=== PATIENT | female | born 1950 | race Caucasian/White ===

== ENCOUNTER 2016-09-03 12:24 | Emergency (ER) | payer MEDICARE, OTHER ==
--- NOTE | 2016-09-03 12:35 | ER Document Report ---
ED Medical Screen (RME) - General Stated Complaint: COUGH Notes: Patient complaining of cough, runny nose/congestion, ear pain for 3 days. denies sick contacts, did not receive a flu vaccine. denies fevers/chills, sore throat I have greeted and performed a rapid initial assessment of this patient. A comprehensive ED assessment and evaluation of the patient, analysis of test results and completion of the medical decision making process will be conducted by additional ED providers. TRAVEL OUTSIDE OF THE [place] IN LAST 30 DAYS: No - Related Data Allergies/Adverse Reactions: cephalexin monohydrate [From [employer]] Allergy (Verified 09/03/16 12:33) Past Medical History - Past Medical History Cardiac Medical History: Reports: Hx Atrial Fibrillation, Hx Hypertension Pulmonary Medical History: Reports: Hx Asthma Neurological Medical History: Reports: Hx Migraine Endocrine Medical History: Reports: Hx Diabetes Mellitus Type 2 Renal/ Medical History: Reports: Hx Kidney Stones Musculoskeltal Medical History: Reports Hx Arthritis, Reports Hx Musculoskeletal Deformity, Reports Hx Musculoskeletal Trauma Skin Medical History: Reports Hx Psoriasis Past Surgical History: Reports: Hx Tubal Ligation - Immunizations Immunizations up to date: No Hx Diphtheria, Pertussis, Tetanus Vaccination: No Physical Exam - Vital signs Vitals: Temp Pulse Resp BP Pulse Ox 97.9 F 92 16 142/89 H 99 09/03/16 12:28 09/03/16 12:28 09/03/16 12:28 09/03/16 12:28 09/03/16 12:28 Course - Vital Signs Vital signs: Temp Pulse Resp BP Pulse Ox 97.9 F 92 16 142/89 H 99 09/03/16 12:28 09/03/16 12:28 09/03/16 12:28 09/03/16 12:28 09/03/16 12:28
--- NOTE | 2016-09-03 13:16 | ER Document Report ---
ED Respiratory Problem - General Mode of Arrival: Ambulatory Information source: Patient TRAVEL OUTSIDE OF THE [place] IN LAST 30 DAYS: No - HPI Patient complains to provider of: Cough Associated symptoms: Other - See above <SEBASTIAN HUTCHINSON - Last Filed: 09/03/16 13:19> <MANDY DUARTE - Last Filed: 09/03/16 15:12> - General Chief Complaint: Cold Symptoms Stated Complaint: COUGH Notes: Patient is a 66 year old female who presents to the emergency department complaining of a cough onset 3 days ago. Patient also complains of runny eyes, rhinnorhea, sneezing, dark green sputum, and feeling as though her left ear is stopped up. Patient is still on Coumadin and is allergic to Keflex and another drug that she cannot recall. PCP: Dr. Fall (SEBASTIAN HUTCHINSON) - Related Data Allergies/Adverse Reactions: cephalexin monohydrate [From Keflex] Allergy (Verified 09/03/16 14:03) Past Medical History - General Information source: Patient - Social History Smoking Status: Unknown if Ever Smoked Chew tobacco use (# tins/day): No Frequency of alcohol use: None Drug Abuse: None Family History: Reviewed & Not Pertinent, Arthritis, CAD, CVA, DM, Hyperlipidemia, Hypertension, Malignancy, Thyroid Disfunction Patient has suicidal ideation: No Patient has homicidal ideation: No - Past Medical History Cardiac Medical History: Reports: Hx Atrial Fibrillation, Hx Hypertension Pulmonary Medical History: Reports: Hx Asthma Neurological Medical History: Reports: Hx Migraine Endocrine Medical History: Reports: Hx Diabetes Mellitus Type 2 Renal/ Medical History: Reports: Hx Kidney Stones Musculoskeltal Medical History: Reports Hx Arthritis, Reports Hx Musculoskeletal Deformity, Reports Hx Musculoskeletal Trauma Skin Medical History: Reports Hx Psoriasis Past Surgical History: Reports: Hx Tubal Ligation - Immunizations Immunizations up to date: No Hx Diphtheria, Pertussis, Tetanus Vaccination: No <SEBASTIAN HUTCHINSON - Last Filed: 09/03/16 13:19> Review of Systems - Review of Systems Constitutional: No symptoms reported EENT: See HPI, Eye discharge, Nose discharge, Other - blocked ear and sneezing Cardiovascular: No symptoms reported Respiratory: See HPI, Cough, Sputum Gastrointestinal: No symptoms reported Genitourinary: No symptoms reported Female Genitourinary: No symptoms reported Musculoskeletal: No symptoms reported Skin: No symptoms reported Hematologic/Lymphatic: No symptoms reported Neurological/Psychological: No symptoms reported -: Yes All other systems reviewed and negative <SEBASTIAN HUTCHINSON - Last Filed: 09/03/16 13:19> Physical Exam - Vital signs Interpretation: Normal - General General appearance: Appears well, Alert - HEENT Head: Normocephalic, Atraumatic Tympanic membrane: Retracted - mild, bilaterally and clear Pharynx: Normal - Respiratory Respiratory status: No respiratory distress Chest status: Nontender Breath sounds: Rhonchi - with cough Chest palpation: Normal - Cardiovascular Rhythm: Irregularly irregular Heart sounds: Normal auscultation Murmur: No - Back Back: Normal, Nontender - Extremities General upper extremity: Normal inspection General lower extremity: Normal inspection - Neurological Neuro grossly intact: Yes Cognition: Normal Orientation: AAOx4 Eleonora Coma Scale Eye Opening: Spontaneous Ele[place]ora Coma Scale Verbal: Oriented [place] Coma Scale Motor: Obeys Commands [place] Coma Scale Total: 15 Speech: Normal Motor strength normal: LUE, RUE, LLE, RLE Additional motor exam normals: 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 center 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, Dorsiflexion, Involuntary movements, Plantar flexion, Pronator drift, Weakness, Hemiplegia, Other - Psychological Associated symptoms: Normal affect, Normal mood - Skin Skin Temperature: Warm Skin Moisture: Dry Skin Color: Normal <SEBASTIAN HUTCHINSON - Last Filed: 09/03/16 13:19> Course - Laboratory Result Diagrams: 09/03/16 13:50 09/03/16 13:50 <MANDY DUARTE - Last Filed: 09/03/16 15:12> - Vital Signs Vital signs: Temp Pulse Resp BP Pulse Ox 97.9 F 92 16 142/89 H 99 09/03/16 12:28 09/03/16 12:28 09/03/16 12:28 09/03/16 12:28 09/03/16 12:28 - Laboratory Laboratory results interpreted by me: 09/03/16 09/03/16 09/03/16 13:50 13:50 13:50 WBC 11.4 H RDW 17.2 H Seg Neutrophils % 81.6 H Lymphocytes % 8.0 L Absolute Neutrophils 9.3 H PT 22.7 H BUN 22 H Est GFR ( Amer) 58 L Est GFR (Non-Af Amer) 48 L Glucose 219 H Alkaline Phosphatase 138 H Discharge <SEBASTIAN HUTCHINSON - Last Filed: 09/03/16 13:19> <MANDY DUARTE - Last Filed: 09/03/16 15:12> - Discharge Clinical Impression: Bronchitis Upper respiratory tract infection Qualifiers: URI type: unspecified URI Qualified Code(s): J06.9 - Acute upper respiratory infection, unspecified Condition: Stable Disposition: HOME, SELF-CARE Additional Instructions: Upper Respiratory Illness: You have an infection of the respiratory passages -- a "cold." This common infection causes nasal congestion, drainage, and often sore throat and cough. It is usually caused by a virus and is highly contagious. The disease usually lasts a week or more, though the worst symptoms are usually over in 3 or 4 days. There is no "cure" for the viral infection -- it must run its course. If there is a complication, such as bacterial infection in the nose, sinuses, middle ear, or bronchial tubes, antibiotics may be required, but antibiotics won 't affect the virus. If you smoke, you should STOP!! Drink plenty of fluids. A humidifier may help. An expectorant medication or decongestant may make you more comfortable. Use acetaminophen or ibuprofen for fever or aches. See the doctor if fever persists over two or three days, if there is any significant worsening of your symptoms, or if you simply fail to improve as expected. Bronchitis: You have acute bronchitis. This disease is an infection or inflammation of the air passageways in your lungs. Symptoms usually include cough, low grade fever, shortness of breath, and wheezing. The cough usually persists for a couple of weeks. Most cases of bronchitis get better without antibiotics. We prescribe antibiotics when we believe bacteria are damaging your airways, or if there's high risk the bronchitis will worsen into pneumonia. Increase your fluid intake. A cool mist humidifier may make your lungs more comfortable. An expectorant (cough medicine that loosens phlegm) can help. If you smoke, STOP!!! Recovery from bronchitis can be somewhat slow, but you should see improvement within a day or two. Repeated episodes of bronchitis may result in lung damage -- for example, chronic bronchitis, recurrent pneumonias, or emphysema. Call the doctor if you develop increasing fever, shortness of breath, chest pain, bloody sputum, or otherwise worsen. If you have not improved at all after several days, contact the physician. TAKE THE MEDICATION PRESCRIBED. DRINK PLENTY OF FLUIDS AND REST. FOLLOW UP WITH YOUR DOCTOR IF NOT IMPROVING. Prescriptions: Doxycycline Hyclate 100 mg PO BID #14 tablet Referrals: KIMBERLY FALL MD [Primary Care Provider] - Follow up as needed Scribe Attestation: 09/03/16 15:04 I personally performed the services described in the documentation, reviewed and edited the documentation which was dictated to the scribe in my presence, and it accurately records my words and actions. (MANDY DUARTE) Scribe Documentation - Scribe Written by Ivory:: ivory Segovia, 09/03/16, 1249 acting as scribe for :: Hermes <SEBASTIAN HUTCHINSON - Last Filed: 09/03/16 13:19>
[2016-09-03 14:08] LABS: ABSOLUTE BASOPHILS # (AUTO) 0.1 10^3/uL (0.0-0.2); ABSOLUTE EOSINOPHILS # (AUTO) 0.3 10^3/uL (0.0-0.6); ABSOLUTE LYMPHOCYTES (AUTO) 0.9 10^3/uL (0.5-4.7); ABSOLUTE MONOCYTES (AUTO) 0.8 10^3/uL (0.1-1.4); ABSOLUTE NEUT (AUTO) 9.3 10^3/uL (1.7-8.2); BASOPHILS % (AUTO) 0.5 % (0-2); EOSINOPHILS % (AUTO) 3.1 % (0-6); HEMATOCRIT 43.2 % (36.0-47.0); HEMOGLOBIN 14.3 g/dL (12.0-15.5); HGB HCT DIFFERENCE -0.3; MEAN CORPUSCULAR HEMOGLOBIN 29.6 pg (27.0-33.4); MEAN CORPUSCULAR HGB CONC 33.2 g/dL (32.0-36.0); MEAN CORPUSCULAR VOLUME 89 fl (80-97); MONOCYTES % (AUTO) 6.8 % (3-13); RED BLOOD COUNT 4.84 10^6/uL (3.72-5.28); RED CELL DISTRIBUTION WIDTH 17.2 % (11.5-14.0); SEGMENTED NEUTROPHILS % (AUTO) 81.6 % (42-78); WHITE BLOOD COUNT 11.4 10^3/uL (4.0-10.5)
[2016-09-03 14:19] LABS: PROTHROMBIN TIME 22.7 SEC (11.4-15.4)
[2016-09-03 14:28] LABS: ALANINE AMINOTRANSFERASE 23 U/L (9-52); ALBUMIN 3.6 g/dL (3.5-5.0); ALKALINE PHOSPHATASE 138 U/L (38-126); ANION GAP 17 (5-19); ASPARTATE AMINO TRANSFERASE 17 U/L (14-36); BILIRUBIN,TOTAL 0.6 mg/dL (0.2-1.3); BLOOD UREA NITROGEN 22 mg/dL (7-20); CALCIUM 9.1 mg/dL (8.4-10.2); CARBON DIOXIDE 23 mmol/L (22-30); CHLORIDE 101 mmol/L (98-107); CREATININE RESULT 1.14 mg/dL (0.52-1.25); GLUCOSE 219 mg/dL (75-110); POTASSIUM 3.9 mmol/L (3.6-5.0); SODIUM 140.5 mmol/L (137-145); TOTAL PROTEIN 6.9 g/dL (6.3-8.2)
[2016-09-03 15:24] VITALS: BP 120/85
== END 2016-09-03 15:22 | disposition home or self-care (01) ==
LOC: ER 12:24
DX: J06.9 Acute upper respiratory infection, unspecified (principal); J40 Bronchitis, not specified as acute or chronic; R05 Cough; R09.89 Other specified symptoms and signs involving the circulatory and respiratory systems; J34.89 Other specified disorders of nose and nasal sinuses; R06.7 Sneezing; Z79.01 Long term (current) use of anticoagulants
CPT/HCPCS: 36415; 71020; 80053; 85025; 85610; 87804; 99283

== ENCOUNTER 2016-10-09 16:40 | Emergency (ER) | payer MEDICARE ==
--- NOTE | 2016-10-09 16:57 | ER Document Report ---
ED Medical Screen (RME) - General Chief Complaint: Cough Stated Complaint: COUGH,WHEEZE Notes: Patient has had a cough, mostly dry, with some wheezing for 3-4 days. She had similar symptoms a month or 2 ago and was diagnosed with a bronchitis. Says her throat hurts when she coughs. Has not had a fever. Nonsmoker. TRAVEL OUTSIDE OF THE [place] IN LAST 30 DAYS: No - Related Data Allergies/Adverse Reactions: cephalexin monohydrate [From [employer]] Allergy (Verified 10/09/16 16:45) Past Medical History - Past Medical History Cardiac Medical History: Reports: Hx Atrial Fibrillation, Hx Hypertension Pulmonary Medical History: Reports: Hx Asthma Neurological Medical History: Reports: Hx Migraine Endocrine Medical History: Reports: Hx Diabetes Mellitus Type 2 Renal/ Medical History: Reports: Hx Kidney Stones. Denies: Hx Peritoneal Dialysis Musculoskeltal Medical History: Reports Hx Arthritis, Reports Hx Musculoskeletal Deformity, Reports Hx Musculoskeletal Trauma Skin Medical History: Reports Hx Psoriasis Past Surgical History: Reports: Hx Tubal Ligation - Immunizations Immunizations up to date: No Hx Diphtheria, Pertussis, Tetanus Vaccination: No Physical Exam - Vital signs Vitals: Temp Pulse Resp BP Pulse Ox 98.2 F 88 18 127/95 H 97 10/09/16 16:44 10/09/16 16:44 10/09/16 16:44 10/09/16 16:44 10/09/16 16:44 Course - Vital Signs Vital signs: Temp Pulse Resp BP Pulse Ox 98.2 F 88 18 127/95 H 97 10/09/16 16:44 10/09/16 16:44 10/09/16 16:44 10/09/16 16:44 10/09/16 16:44
--- NOTE | 2016-10-09 17:12 | ER Document Report ---
HPI - HPI Patient complains to provider of: cough and wheeze Onset: Other - Monday Onset/Duration: Gradual Pain Level: 3 Context: 66-year-old nonsmoking female with a history of atrial fibrillation is complaining of coughing and wheezing with some upper chest congestion since Monday. Coughing makes her throat hurt. No chest pain or Shortness of breath. No Fever or chills. No peripheripheral edema. She wants a breathing tx. PVP is Dr. Carpio Associated Symptoms: None Exacerbated by: Coughing Relieved by: Denies Similar symptoms previously: Yes Recently seen / treated by doctor: No - ROS ROS below otherwise negative: Yes Systems Reviewed and Negative: Yes All other systems reviewed and negative - REPRODUCTIVE Reproductive: DENIES: : - DERM Skin Color: Normal Past Medical History - General Information source: Patient - Social History Smoking Status: Never Smoker Frequency of alcohol use: None Drug Abuse: None Lives with: Family Family History: Reviewed & Not Pertinent, Arthritis, CAD, CVA, DM, Hyperlipidemia, Hypertension, Malignancy, Thyroid Disfunction Patient has suicidal ideation: No Patient has homicidal ideation: No - Past Medical History Cardiac Medical History: Reports: Hx Atrial Fibrillation, Hx Hypertension Pulmonary Medical History: Reports: Hx Asthma Neurological Medical History: Reports: Hx Migraine Endocrine Medical History: Reports: Hx Diabetes Mellitus Type 2 Renal/ Medical History: Reports: Hx Kidney Stones. Denies: Hx Peritoneal Dialysis Musculoskeltal Medical History: Reports Hx Arthritis, Reports Hx Musculoskeletal Deformity, Reports Hx Musculoskeletal Trauma Skin Medical History: Reports Hx Psoriasis Past Surgical History: Reports: Hx Tubal Ligation - Immunizations Immunizations up to date: No Hx Diphtheria, Pertussis, Tetanus Vaccination: No Vertical Provider Document - CONSTITUTIONAL Agree With Documented VS: Yes Exam Limitations: No Limitations - INFECTION CONTROL TRAVEL OUTSIDE OF THE [place] IN LAST 30 DAYS: No - HEENT HEENT: Normocephalic, PERRLA. negative: Conjuctival Injection, Pharyngeal Erythema, Tympanic Membrane Red - NECK Neck: Supple. negative: Lymphadenopathy-Left, Lymphadenopathy-Right - RESPIRATORY Respiratory: Breath Sounds Normal, No Respiratory Distress O2 Sat by Pulse Oximetry: 97 - CARDIOVASCULAR Cardiovascular: Regular Rate, Regular Rhythm - GI/ABDOMEN Gastrointestinal: Abdomen Soft, Abdomen Non-Tender - MUSCULOSKELETAL/EXTREMETIES Musculoskeletal/Extremeties: CRICKET LIN - NEURO Level of Consciousness: Awake, Alert, Appropriate - DERM Integumentary: Warm, Dry Course - Re-evaluation Re-evalutation: 10/09/16 17:39 Chest x-ray is negative for infiltrate but she does have cardiomegaly without failure 10/09/16 17:54 consult. Lena Castellon [employer] PAYABLE ANALYST hospitalist for antibiotic choice since she is on Warfarin. - Vital Signs Vital signs: Temp Pulse Resp BP Pulse Ox 98.2 F 88 18 127/95 H 97 10/09/16 16:44 10/09/16 16:44 10/09/16 16:44 10/09/16 16:44 10/09/16 16:44 Discharge - Discharge Clinical Impression: Bronchitis Condition: Good Disposition: HOME, SELF-CARE Instructions: Inhaled Bronchodilators ([facility]), Bronchitis ([facility]), Doxycycline ([facility] ) Additional Instructions: check your INR level next week since you will be taking the antibiotic doxycycline to er if worse Please complete the patient satisfaction survey if you get one, and return it.. If you do not receive a survey, then you can go to the [facility] website, [email or web address] and place your comments about your very good care. Thank you very much. It was a pleasure being your medical provider today. Prescriptions: Doxycycline Hyclate 100 mg PO BID #14 tablet Levalbuterol HCl [Xopenex Neb 0.63 mg/3 ml Ampul] 0.63 mg NEB [id number] PRN #1 pkt PRN Reason: Nebulizer [Nebulizer Machine] 1 each MC ASDIR PRN #1 kit PRN Reason: Referrals: KIMBERLY FALL MD [NO LOCAL MD] - Follow up tomorrow
[2016-10-09] MEDS ORDERED: LEVALBUTEROL HCL NEB 0.63 MG/3 ML AMPUL NEB ONE (17:17)
[2016-10-09 18:08] VITALS: BP 130/78
== END 2016-10-09 18:08 | disposition home or self-care (01) ==
LOC: ER 16:40
DX: J40 Bronchitis, not specified as acute or chronic (principal); R05 Cough; R06.2 Wheezing; I48.91 Unspecified atrial fibrillation
CPT/HCPCS: 94640; 99283; 71020; A9270; J7614

== ENCOUNTER 2017-01-21 22:14 | Emergency (ER) | payer MEDICARE ==
[2017-01-21] MEDS ORDERED: HYDROCODONE/ACETAMINOPHEN 5-325 MG TABLET PO ONE (23:24)
--- NOTE | 2017-01-21 23:25 | ER Document Report ---
ED Medical Screen (RME) - General Chief Complaint: Fall Injury Stated Complaint: FALL,LEFT KNEE PAIN Time Seen by Provider: 01/21/17 23:24 Notes: 66-year-old female, chief complaint of mechanical fall, landed on her left knee on her deck. Denies head injury. Denies any other areas of pain. Denies back pain, numbness, incontinence, inability to urinate. She is on Coumadin for A. fib. TRAVEL OUTSIDE OF THE [place] IN LAST 30 DAYS: No - Related Data Allergies/Adverse Reactions: cephalexin monohydrate [From Keflex] Allergy (Verified 10/09/16 16:45) Past Medical History - Past Medical History Cardiac Medical History: Reports: Hx Atrial Fibrillation, Hx Hypertension Pulmonary Medical History: Reports: Hx Asthma Neurological Medical History: Reports: Hx Migraine Endocrine Medical History: Reports: Hx Diabetes Mellitus Type 2 Renal/ Medical History: Reports: Hx Kidney Stones. Denies: Hx Peritoneal Dialysis Musculoskeltal Medical History: Reports Hx Arthritis, Reports Hx Musculoskeletal Deformity, Reports Hx Musculoskeletal Trauma Skin Medical History: Reports Hx Psoriasis Past Surgical History: Reports: Hx Tubal Ligation - Immunizations Immunizations up to date: No Hx Diphtheria, Pertussis, Tetanus Vaccination: No Physical Exam - Vital signs Vitals: Temp Pulse Resp BP Pulse Ox 97.7 F 91 18 124/83 98 01/21/17 23:22 01/21/17 23:22 01/21/17 23:22 01/21/17 23:22 01/21/17 23:22 - Extremities General lower extremity: Other - Tenderness over the anterior left knee generally with questionable swelling, unremarkable lower extremity exam bilaterally otherwise including hip exam Course - Re-evaluation Re-evalutation: Patient requests something for pain - Vital Signs Vital signs: Temp Pulse Resp BP Pulse Ox 97.7 F 91 18 124/83 98 01/21/17 23:22 01/21/17 23:22 01/21/17 23:22 01/21/17 23:22 01/21/17 23:22
--- NOTE | 2017-01-22 00:06 | RADIOLOGY REPORT (SQ) ---
EXAM DESCRIPTION: KNEE LEFT 4 VIEW COMPLETED DATE/TIME: 01/21/2017 11:53 pm REASON FOR STUDY: fall COMPARISON: 01/11/2016 NUMBER OF VIEWS: Four views. TECHNIQUE: AP, lateral, and both oblique radiographic images acquired of the left knee. LIMITATIONS: None. FINDINGS: MINERALIZATION: Normal. BONES: No acute fracture or dislocation. No worrisome bone lesions. 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 JOINT: A small joint effusion is present. SOFT TISSUES: No soft tissue swelling. No radio-opaque foreign body. OTHER: No other significant finding. IMPRESSION: Small joint effusion without evidence of acute osseous injury. Background of tricompart mental degenerative change. TECHNICAL DOCUMENTATION: JOB ID: [id number] [employer]- All Rights Reserved
[2017-01-22] MEDS ORDERED: OXYCODONE-ACETAMINOPHEN 5-325 MG TABLET PO ONE (00:15)
[2017-01-22] MEDS ORDERED: ONDANSETRON 4 MG TAB.RAPDIS PO ONE (00:15)
--- NOTE | 2017-01-22 00:18 | ER Document Report ---
ED Fall - General Chief Complaint: Fall Injury Stated Complaint: FALL,LEFT KNEE PAIN Time Seen by Provider: 01/21/17 23:24 Notes: 66-year-old female, chief complaint of mechanical fall, landed on her left knee on her deck. Denies head injury. Denies any other areas of pain. Denies back pain, numbness, incontinence, inability to urinate. She is on Coumadin for A. fib. TRAVEL OUTSIDE OF THE [place] IN LAST 30 DAYS: No - Related data Allergies/Adverse Reactions: cephalexin monohydrate [From Keflex] Allergy (Verified 10/09/16 16:45) Past Medical History - General Information source: Patient - Social History Smoking Status: Never Smoker Frequency of alcohol use: None Drug Abuse: None Lives with: Family Family History: Reviewed & Not Pertinent, Arthritis, CAD, CVA, DM, Hyperlipidemia, Hypertension, Malignancy, Thyroid Disfunction - Past Medical History Cardiac Medical History: Reports: Hx Atrial Fibrillation, Hx Hypertension Pulmonary Medical History: Reports: Hx Asthma Neurological Medical History: Reports: Hx Migraine Endocrine Medical History: Reports: Hx Diabetes Mellitus Type 2 Renal/ Medical History: Reports: Hx Kidney Stones. Denies: Hx Peritoneal Dialysis Musculoskeltal Medical History: Reports Hx Arthritis, Reports Hx Musculoskeletal Deformity, Reports Hx Musculoskeletal Trauma Skin Medical History: Reports Hx Psoriasis Past Surgical History: Reports: Hx Tubal Ligation - Immunizations Immunizations up to date: No Hx Diphtheria, Pertussis, Tetanus Vaccination: No Review of Systems - Review of Systems Constitutional: No symptoms reported EENT: No symptoms reported Cardiovascular: No symptoms reported Respiratory: No symptoms reported Gastrointestinal: No symptoms reported Genitourinary: No symptoms reported Female Genitourinary: No symptoms reported Musculoskeletal: See HPI Skin: No symptoms reported Hematologic/Lymphatic: No symptoms reported Neurological/Psychological: No symptoms reported Physical Exam - Vital signs Vitals: Temp Pulse Resp BP Pulse Ox 97.7 F 91 18 124/83 98 01/21/17 23:22 01/21/17 23:22 01/21/17 23:22 01/21/17 23:22 01/21/17 23:22 Interpretation: Normal - General General appearance: Appears well, Alert - HEENT Head: Normocephalic, Atraumatic Eyes: Normal Pupils: PERRL - Respiratory Respiratory status: No respiratory distress Chest status: Nontender Breath sounds: Normal Chest palpation: Normal - Cardiovascular Rhythm: Regular Heart sounds: Normal auscultation Murmur: No - Abdominal Inspection: Normal Distension: No distension Bowel sounds: Normal Tenderness: Nontender Organomegaly: No organomegaly - Back Back: Normal, Nontender - Extremities General upper extremity: Normal inspection, Nontender, Normal color, Normal ROM , Normal temperature General lower extremity: Other - small amount of ecchymosis and also tenderness over the left knee anteriorly. Range of motion intact. Normal examination otherwise with normal hip, ankle, distal neurovascular exam. - Neurological Neuro grossly intact: Yes Cognition: Normal Orientation: AAOx4 [place] Coma Scale Eye Opening: Spontaneous [place]onora Coma Scale Verbal: Oriented [place] Coma Scale Motor: Obeys Commands [place] Coma Scale Total: 15 Speech: Normal Motor strength normal: LUE, RUE, LLE, RLE Sensory: Normal - Psychological Associated symptoms: Normal affect, Normal mood - Skin Skin Temperature: Warm Skin Moisture: Dry Skin Color: Normal Course - Re-evaluation Re-evalutation: Patient with small amount of ecchymosis and also tenderness over the left knee anteriorly. Range of motion intact. Normal examination otherwise with normal hip, ankle, distal neurovascular exam. Normal physical examination otherwise. Patient alert and well-appearing. Patient did improve with pain medication somewhat, still moves with some pain. Tanmay wrap was used because patient has difficulty with crutches. She actually ambulates quite well with this. She requested pain medication, I did provide her with some pain medication, stool softener, recommendations for close follow-up with primary care, orthopedic referral, and discussed return precautions. Patient states understanding and agreement. - Vital Signs Vital signs: Temp Pulse Resp BP Pulse Ox 97.6 F 82 20 117/58 L 96 01/22/17 00:28 01/22/17 00:28 01/22/17 00:28 01/22/17 00:28 01/22/17 00:28 Procedures - Immobilization Left knee Pre-Proc Neuro Vasc Exam: Normal Immobilizer type: Tanmay wrap Performed by: Provider Post-Proc Neuro Vasc Exam: Normal Alignment checked and good: Yes Discharge - Discharge Clinical Impression: Fall Qualifiers: Encounter type: initial encounter Qualified Code(s): W19.XXXA - Unspecified fall, initial encounter Left knee pain Qualifiers: Chronicity: acute Qualified Code(s): M25.562 - Pain in left knee Condition: Stable Disposition: HOME, SELF-CARE Additional Instructions: The x-ray shows some fluid in your knee joint from the injury but no fracture. There are also degenerative changes showing (arthritis). Apply ice to the knee about 4 times daily for about 15 minutes. Elevate your leg for the next 2-3 days. Use your walker at home. Take your Aleve anti-inflammatory, take the pain medication if needed. If you take the pain medication take the stool softener Colace to avoid constipation. Follow-up in the next few days with your primary care provider. Return to emergency department for any concerning symptoms including severe swelling or pain. Prescriptions: Docusate Sodium [Colace 100 mg Capsule] 100 mg PO DAILY #30 capsule Oxycodone HCl/Acetaminophen [Percocet 5-325 mg Tablet] 1 tab PO Q4H PRN #15 tablet PRN Reason: Referrals: CRICKET HERRERA MD [ACTIVE STAFF] - Follow up as needed
[2017-01-22 00:30] VITALS: BP 117/58
== END 2017-01-22 00:35 | disposition home or self-care (01) ==
LOC: ER 22:14
DX: M25.562 Pain in left knee (principal); W19.XXXA Unspecified fall, initial encounter; Z79.01 Long term (current) use of anticoagulants
CPT/HCPCS: 99283; 73562; A9270 ×3; S0119

== ENCOUNTER 2017-06-16 10:32 | Emergency (ER) | payer MEDICARE ==
[2017-06-16 10:37] VITALS: BP 144/95
[2017-06-16] MEDS ORDERED: IPRATROPIUM/ALBUTEROL 0.5-2.5 MG/3 ML AMPUL NEB ONE ×2 (11:06→11:51)
[2017-06-16] MEDS ORDERED: PREDNISONE 20 MG TABLET PO ONE (11:06)
--- NOTE | 2017-06-16 11:06 | ER Document Report ---
ED General - General Mode of Arrival: Ambulatory Information source: Patient TRAVEL OUTSIDE OF THE [place] IN LAST 30 DAYS: No <CYN ENGEL - Last Filed: 06/16/17 11:35> <CHASE NUR - Last Filed: 06/16/17 11:54> - General Chief Complaint: Cough Stated Complaint: COUGH Time Seen by Provider: 06/16/17 10:43 Notes: Patient is a 66 year old female with a history of asthma and diabetes presents to the emergency department complaining of cough and wheezing onset 1 week. Patient states that her symptoms have been gradually getting worse. Patient denies fever. (CYN ENGEL) - Related Data Allergies/Adverse Reactions: cephalexin monohydrate [From Keflex] Allergy (Verified 10/09/16 16:45) levofloxacin [From Levaquin] Allergy (Verified 06/16/17 10:49) Home Medications: Current Home Medications Alprazolam 0.5 mg PO BID PRN 06/16/17 [History] Aspirin [Aspirin 81 mg Chewable Tablet] 1 tab PO DAILY 06/16/17 [History] Insulin Aspart Prot/Insuln Asp [Novolog Mix 70-30 Flexpen Syrn] 1 dose SQ BID [History] Isosorbide Mononitrate [Isosorbide Mononitrate ER] 30 mg PO DAILY 06/16/17 [ History] Spironolactone 50 mg PO BID 06/16/17 [History] Past Medical History - General Information source: Patient - Social History Smoking Status: Never Smoker Frequency of alcohol use: None Drug Abuse: None Family History: Reviewed & Not Pertinent, Arthritis, CAD, CVA, DM, Hyperlipidemia, Hypertension, Malignancy, Thyroid Disfunction Patient has suicidal ideation: No Patient has homicidal ideation: No - Past Medical History Cardiac Medical History: Reports: Hx Atrial Fibrillation, Hx Hypertension Pulmonary Medical History: Reports: Hx Asthma Neurological Medical History: Reports: Hx Migraine Endocrine Medical History: Reports: Hx Diabetes Mellitus Type 2 Renal/ Medical History: Reports: Hx Kidney Stones Musculoskeltal Medical History: Reports Hx Arthritis, Reports Hx Musculoskeletal Deformity, Reports Hx Musculoskeletal Trauma Skin Medical History: Reports Hx Psoriasis Past Surgical History: Reports: Hx Tubal Ligation - Immunizations Immunizations up to date: No Hx Diphtheria, Pertussis, Tetanus Vaccination: No <CYN ENGEL - Last Filed: 06/16/17 11:35> Review of Systems - Review of Systems Constitutional: No symptoms reported EENT: No symptoms reported Cardiovascular: No symptoms reported Respiratory: See HPI, Cough, Wheezing Gastrointestinal: No symptoms reported Genitourinary: No symptoms reported Female Genitourinary: No symptoms reported Musculoskeletal: No symptoms reported Skin: No symptoms reported Hematologic/Lymphatic: No symptoms reported Neurological/Psychological: No symptoms reported -: Yes All other systems reviewed and negative <CYN ENGEL - Last Filed: 06/16/17 11:35> Physical Exam - General General appearance: Appears well, Alert In distress: None - HEENT Head: Normocephalic, Atraumatic Conjunctiva: Normal Cornea: Normal - Respiratory Respiratory status: No respiratory distress Chest status: Nontender Breath sounds: Wheezing - slight expiratory wheezing with cough. - Cardiovascular Rhythm: Regular Heart sounds: Normal auscultation <CYN ENGEL Last Filed: 06/16/17 11:35> - Abdominal Inspection: Normal Tenderness: Nontender - Extremities General upper extremity: Normal inspection, Normal strength General lower extremity: Normal inspection, Normal strength, Normal weight bearing - Neurological Neuro grossly intact: Yes Cognition: Normal Orientation: AAOx4 [place] Coma Scale Eye Opening: Spontaneous [place] Coma Scale Verbal: Oriented Speech: Normal - Psychological Associated symptoms: Normal affect, Normal mood - Skin Skin Temperature: Warm Skin Moisture: Dry Skin Color: Normal <CHASE NUR - Last Filed: 06/16/17 11:54> - Vital signs Vitals: Temp Pulse Resp BP Pulse Ox 98.8 F 82 20 144/95 H 95 06/16/17 10:35 06/16/17 10:35 06/16/17 10:35 06/16/17 10:35 06/16/17 10:35 Course <CYN ENGEL - Last Filed: 06/16/17 11:35> - Diagnostic Test Radiology reviewed: Reports reviewed <CHASE NUR - Last Filed: 06/16/17 11:54> - Re-evaluation Re-evalutation: 06/16/17 11:48 Patient improved with DuoNeb. Patient will be discharged home with DuoNeb refill, prednisone, and azithromycin. Patient has a history of diabetes and doses herself at home with insulin. She has been advised that the prednisone will make her more likely to be hyperglycemic. She is to follow-up with her doctor and return if any worsening or concerning symptoms such as fever or difficulty breathing. Understands and agrees with plan. Stable for discharge. (CHASE NUR) - Vital Signs Vital signs: Temp Pulse Resp BP Pulse Ox 98.8 F 82 20 144/95 H 95 06/16/17 10:35 06/16/17 10:35 06/16/17 10:35 06/16/17 10:35 06/16/17 10:35 Discharge <CYN ENGEL - Last Filed: 06/16/17 11:35> <CHASE NUR - Last Filed: 06/16/17 11:54> - Discharge Clinical Impression: Bronchospasm Upper respiratory infection Qualifiers: URI type: unspecified URI Qualified Code(s): J06.9 - Acute upper respiratory infection, unspecified Condition: Stable Disposition: HOME, SELF-CARE Instructions: Upper Respiratory Illness ([facility]), Bronchospasm ([facility]), Bronchodilators ([facility]) Additional Instructions: Please follow-up with your doctor this week. Prescriptions: Azithromycin [Zithromax 250 mg Tablet] 250 mg PO ASDIR PRN #6 tablet PRN Reason: Ipratropium/Albuterol Sulfate [Duoneb 3 ml Ampul] 3 ml NEB [id number] PRN #30 vial.neb PRN Reason: Prednisone 40 mg PO DAILY #6 tablet Forms: Return to Work Scribe Attestation: 06/16/17 11:54 I personally performed the services described in the documentation, reviewed and edited the documentation which was dictated to the scribe in my presence, and it accurately records my words and actions. (CHASE NUR)
--- NOTE | 2017-06-16 11:33 | RADIOLOGY REPORT (SQ) ---
EXAM DESCRIPTION: CHEST PA/LAT COMPLETED DATE/TIME: 06/16/2017 11:18 am REASON FOR STUDY: cough COMPARISON: Two-view chest 10/09/2016 CT angio chest 12/10/2015 EXAM PARAMETERS: NUMBER OF VIEWS: two views TECHNIQUE: Digital Frontal and Lateral radiographic views of the chest acquired. RADIATION DOSE: NA LIMITATIONS: none FINDINGS: LUNGS AND PLEURA: Minimal right basilar atelectasis in the lateral costophrenic sulcus. Bone no pulmonary edema. No pleural effusions. No pneumothorax. MEDIASTINUM AND HILAR STRUCTURES: No masses or contour abnormalities. HEART AND VASCULAR STRUCTURES: Stable moderate cardiomegaly BONES: Osteoporotic with 25% upper endplate compression of T12, new compared to chest films in September 2016. HARDWARE: None in the chest. OTHER: No other significant finding. IMPRESSION: Minimal right basilar atelectasis than 25% compression deformity of T12, new compared to chest films from September 2016 TECHNICAL DOCUMENTATION: JOB ID: [id number] [employer]- All Rights Reserved
[2017-06-16] MEDS ORDERED: AZITHROMYCIN 250 MG TABLET PO ONE (11:40)
[2017-06-16] MEDS ORDERED: ALBUTEROL SULFATE HFA (90 MCG/PUFF) 8 GM MDI (1 MDI/ER DISP) IH ONE (11:51)
== END 2017-06-16 12:17 | disposition home or self-care (01) ==
LOC: ER 10:32
DX: J06.9 Acute upper respiratory infection, unspecified (principal); J45.909 Unspecified asthma, uncomplicated; R05 Cough; I10 Essential (primary) hypertension; E11.9 Type 2 diabetes mellitus without complications; Z79.4 Long term (current) use of insulin; Z88.1 Allergy status to other antibiotic agents
CPT/HCPCS: 94640 ×2; 99283; 71020; A9270 ×3; J3490; J7512; J7620

== ENCOUNTER 2017-08-15 09:13 | Inpatient (IN) | payer MEDICARE ==
[2017-08-15] MEDS ORDERED: NORMAL SALINE 1000 ML 1,000 ML IV ONE (09:40)
[2017-08-15] MEDS ORDERED: ONDANSETRON HCL INJ/PF 4 MG/2 ML SDV IV ONE (09:40)
[2017-08-15] MEDS ORDERED: BENZONATATE 100 MG CAPSULE PO ONE (09:40)
[2017-08-15] MEDS ORDERED: IPRATROPIUM/ALBUTEROL 0.5-2.5 MG/3 ML AMPUL NEB ONE (09:40)
--- NOTE | 2017-08-15 09:42 | ER Document Report ---
ED Medical Screen (RME) - General Chief Complaint: Nausea/Vomiting Stated Complaint: NAUSEA Time Seen by Provider: 08/15/17 09:37 Mode of Arrival: Wheelchair Information source: Patient Notes: 66 yr old female presents with cough since monday, vomiting , decreased appetite. Pt admits abd pain only when she coughs I have greeted and performed a rapid initial assessment of this patient. A comprehensive ED assessment and evaluation of the patient, analysis of test results and completion of the medical decision making process will be conducted by additional ED providers. PHYSICAL EXAMINATION: GENERAL: Well-appearing, well-nourished and in no acute distress. pt satting 93% HEAD: Atraumatic, normocephalic. EYES: Pupils equal round extraocular movements intact, conjunctiva are normal. ENT: Nares patent NECK: Normal range of motion LUNGS: No respiratory distress Musculoskeletal: Normal range of motion NEUROLOGICAL: Normal speech, normal gait. PSYCH: Normal mood, normal affect. SKIN: Warm, Dry, normal turgor, no rashes or lesions noted. TRAVEL OUTSIDE OF THE [place] IN LAST 30 DAYS: No - Related Data Allergies/Adverse Reactions: cephalexin monohydrate [From Keflex] Allergy (Verified 08/15/17 09:15) levofloxacin [From Levaquin] Allergy (Verified 08/15/17 09:15) Past Medical History - Social History Frequency of alcohol use: None Drug Abuse: None - Past Medical History Cardiac Medical History: Reports: Hx Atrial Fibrillation, Hx Hypertension Pulmonary Medical History: Reports: Hx Asthma Neurological Medical History: Reports: Hx Migraine Endocrine Medical History: Reports: Hx Diabetes Mellitus Type 2 Renal/ Medical History: Reports: Hx Kidney Stones. Denies: Hx Peritoneal Dialysis Musculoskeltal Medical History: Reports Hx Arthritis, Reports Hx Musculoskeletal Deformity, Reports Hx Musculoskeletal Trauma Skin Medical History: Reports Hx Psoriasis Past Surgical History: Reports: Hx Tubal Ligation - Immunizations Immunizations up to date: No Hx Diphtheria, Pertussis, Tetanus Vaccination: No Physical Exam - Vital signs Vitals: Temp Pulse Resp BP Pulse Ox 99.5 F 82 24 H 153/83 H 92 08/15/17 09:19 08/15/17 09:19 08/15/17 09:19 08/15/17 09:19 08/15/17 09:19 Course - Vital Signs Vital signs: Temp Pulse Resp BP Pulse Ox 99.5 F 82 24 H 153/83 H 92 08/15/17 09:19 08/15/17 09:19 08/15/17 09:19 08/15/17 09:19 08/15/17 09:19
--- NOTE | 2017-08-15 10:21 | ER Document Report ---
ED General - General Chief Complaint: Nausea/Vomiting Stated Complaint: NAUSEA Time Seen by Provider: 08/15/17 09:37 Mode of Arrival: Wheelchair Notes: 66 years old female presents today with 1 day history of nausea coughing up white phlegm, pain over the lower part of the chest and abdomen, difficulty in breathing. She also having swelling of the lower extremity. Denies any left arm numbness tingling sensation. But nauseous, no palpitation or diaphoresis. Denies any headache. Denies any fever chills. Denies any diarrhea dysuria or frequency. TRAVEL OUTSIDE OF THE [place] IN LAST 30 DAYS: No - HPI Onset: Yesterday Onset/Duration: Gradual Quality of pain: Achy, Dull Severity: Moderate Pain Level: 3 Associated symptoms: Chest pain, Nonproductive cough, Nausea. denies: None, Allergy/hay fever, Body/muscle aches, Chills, Productive cough, Diarrhea, Drooling, Earache, Fever, Headache, Hoarseness, Hurts to breath, Leg swelling, Vomiting, Rhinnorhea, Sinus pain/drainage, Shortness of breath, Slow to respond , Sore throat, Sweating, Weakness, Other Exacerbated by: Supine, Movement, Walking. denies: Denies, Sitting, Standing, Coughing, Deep breathing, Food, Other Relieved by: denies: Denies, Supine, Sitting, Standing, Remaining still, Antacids, Food, Other - Related Data Allergies/Adverse Reactions: cephalexin monohydrate [From Keflex] Allergy (Verified 08/15/17 09:15) levofloxacin [From Levaquin] Allergy (Verified 08/15/17 09:15) Past Medical History - General Information source: Patient - Social History Smoking Status: Never Smoker Frequency of alcohol use: None Drug Abuse: None Family History: Reviewed & Not Pertinent, Arthritis, CAD, CVA, DM, Hyperlipidemia, Hypertension, Malignancy, Thyroid Disfunction Patient has suicidal ideation: No Patient has homicidal ideation: No - Past Medical History Cardiac Medical History: Reports: Hx Atrial Fibrillation, Hx Hypertension Pulmonary Medical History: Reports: Hx Asthma Neurological Medical History: Reports: Hx Migraine Endocrine Medical History: Reports: Hx Diabetes Mellitus Type 2 Renal/ Medical History: Reports: Hx Kidney Stones. Denies: Hx Peritoneal Dialysis Musculoskeltal Medical History: Reports Hx Arthritis, Reports Hx Musculoskeletal Deformity, Reports Hx Musculoskeletal Trauma Skin Medical History: Reports Hx Psoriasis Past Surgical History: Reports: Hx Tubal Ligation - Immunizations Immunizations up to date: No Hx Diphtheria, Pertussis, Tetanus Vaccination: No Review of Systems - Review of Systems Constitutional: Malaise, Weakness. denies: No symptoms reported, See HPI, Chills, Diaphoresis, Fever, Other, Weight gain, Weight loss, Recent illness EENT: denies: No symptoms reported, See HPI, Eye pain, Eye discharge, Blurred vision, Tearing, Double vision, Ear pain, Ear discharge, Nose pain, Nose congestion, Nose discharge, Sinus pressure, Sinus discharge, Throat pain, Difficulty swallowing, Throat swelling, Mouth pain, Mouth swelling, Dental problem, Vertigo, Other Cardiovascular: See HPI Respiratory: See HPI Gastrointestinal: See HPI Genitourinary: denies: No symptoms reported, See HPI, Burning, Dysuria, Discharge, Frequency, Flank pain, Hematuria, Incontinence, Pain, Urgency, Retention, Other Female Genitourinary: denies: No symptoms reported, See HPI, Last menstrual period, , Post menopausal, Heavy/abnormal periods, Irregular period, Vaginal bleeding, Vaginal discharge, Vaginal odor, Painful intercourse, Other Musculoskeletal: Leg swelling, Ankle swelling. denies: No symptoms reported, See HPI, Back pain, Gout, Joint pain, Joint swelling, Muscle pain, Muscle stiffness, Neck pain, Deformity, Other Neurological/Psychological: denies: No symptoms reported, See HPI, Confusion, Dementia, Depression, Hallucinations, Anxiety, Homicidal ideation, Sensory change, Weakness, Gait changes, Loss of power, Paralysis, Seizure, Lost consciousness, Headaches, Speech impairment, Numbness, Suicidal ideation, Tingling, Tremor, Other Physical Exam - Vital signs Vitals: Temp Pulse Resp BP Pulse Ox 99.5 F 82 24 H 153/83 H 92 08/15/17 09:19 08/15/17 09:19 08/15/17 09:19 08/15/17 09:19 08/15/17 09:19 - Notes Notes: PHYSICAL EXAMINATION: GENERAL: Well-appearing, well-nourished and no acute distress. Morbidly obese seems to be in mild to moderate discomfort HEAD: Atraumatic, normocephalic. EYES: Pupils equal round and reactive to light, extraocular movements intact, sclera anicteric, conjunctiva are normal. ENT: Nares patent, oropharynx clear without exudates. Moist mucous membranes. NECK: Normal range of motion, supple without lymphadenopathy LUNGS: Expiratory wheeze and inspiratory rales over the lower lung field decreased breath sounds with HEART: Regular rate and rhythm without murmurs ABDOMEN: Soft, nontender, nondistended abdomen. No guarding, no rebound. No masses appreciated. Musculoskeletal: Normal range of motion, no pitting or edema. No cyanosis. NEUROLOGICAL: Cranial nerves grossly intact. Normal speech, normal gait. Normal sensory, motor exams PSYCH: Normal mood, normal affect. SKIN: Bilateral lower leg shows chronic skin changes suggestive of stasis dermatosis. Course - Re-evaluation Re-evalutation: 08/15/17 14:24 Given metoprolol IV 5 mg, potassium chloride IV, she has urinated after giving 40 of Lasix. And feeling comfortable. She is also on oxygen 2 L by nasal cannula. Her case was discussed with hospitalist and currently being admitted to the hospital. - Vital Signs Vital signs: Temp Pulse Resp BP Pulse Ox 99.5 F 82 25 H 154/103 H 94 08/15/17 09:19 08/15/17 09:19 08/15/17 14:01 08/15/17 14:01 08/15/17 14:01 - Laboratory Result Diagrams: 08/15/17 10:05 08/15/17 12:07 Laboratory results interpreted by me: 08/15/17 08/15/17 08/15/17 10:05 10:05 12:07 RDW 16.5 H Seg Neutrophils % 80.0 H Lymphocytes % 6.9 L Absolute Lymphocytes 0.3 L Potassium 3.1 L Glucose 204 H Direct Bilirubin 0.5 H Alkaline Phosphatase 146 H NT-Pro-B Natriuret Pep 1870 H - Diagnostic Test Radiology reviewed: Reports reviewed - Possible atelectasis - EKG Interpretation by Me Rhythm: A.Fib Egan/QRS: Left axis deviation - Atrial fibrillation at a rate of 131 bpm left axis, poor R-wave in anterior lead V2 V3 otherwise no acute ST elevation ST depression. No T-wave inversions noted. Critical Care Note - Critical Care Note Total time excluding time spent on procedures (mins): 60 - Management of congestive heart failure and atrial fibrillation, discussion with hospitalist and admitted to the hospital service Discharge - Discharge Clinical Impression: Atrial fibrillation with rapid ventricular response, Hypoxia Acute congestive heart failure Qualifiers: Heart failure type: systolic Qualified Code(s): I50.21 - Acute systolic ( congestive) heart failure Condition: Serious Disposition: ADMITTED INPATIENT Admitting Provider: Hospitalist Unit Admitted: Telemetry Referrals: KIMBERLY FALL MD [Primary Care Provider] - Follow up as needed
[2017-08-15 10:31] LABS: A TYPE INFLUENZA AG NEGATIVE (NEGATIVE); B INFLUENZA AG NEGATIVE (NEGATIVE)
--- NOTE | 2017-08-15 10:33 | RADIOLOGY REPORT (SQ) ---
EXAM DESCRIPTION: CHEST PA/LAT COMPLETED DATE/TIME: 08/15/2017 10:22 am REASON FOR STUDY: cough COMPARISON: Two-view chest 06/06/2017, 10/09/2016, 09/03/2016 CT angio chest 12/10/2015 EXAM PARAMETERS: NUMBER OF VIEWS: two views TECHNIQUE: Digital Frontal and Lateral radiographic views of the chest acquired. RADIATION DOSE: NA LIMITATIONS: none FINDINGS: LUNGS AND PLEURA: Minimal airspace disease right upper lobe bordering the minor fissure, a telectasis versus pneumonia. Lungs are otherwise well inflated and free of focal infiltrates. No pleural effusion. No pneumothorax. MEDIASTINUM AND HILAR STRUCTURES: No masses or contour abnormalities. HEART AND VASCULAR STRUCTURES: Stable moderate cardiomegaly BONES: No acute findings. HARDWARE: None in the chest. OTHER: No other significant finding. IMPRESSION: Bandlike airspace disease right upper lobe adjacent to the minor fissure, atelectasis ve rsus pneumonia TECHNICAL DOCUMENTATION: JOB ID: [id number] [employer]- All Rights Reserved Reading location - IP/workstation name: [email or web address]
[2017-08-15] MEDS ORDERED: METOPROLOL TARTRATE PF/INJ 5 MG/5 ML SDV IV ONE (10:47)
[2017-08-15 11:06] LABS: ABSOLUTE LYMPHOCYTES (AUTO) 0.3 10^3/uL (0.5-4.7); ABSOLUTE MONOCYTES (AUTO) 0.6 10^3/uL (0.1-1.4); ABSOLUTE NEUT (AUTO) 3.7 10^3/uL (1.7-8.2); BASOPHILS % (AUTO) 0.2 % (0-2); EOSINOPHILS % (AUTO) 0.3 % (0-6); HEMATOCRIT 40.3 % (36.0-47.0); HEMOGLOBIN 13.4 g/dL (12.0-15.5); LYMPHOCYTES % (AUTO) 6.9 % (13-45); MEAN CORPUSCULAR HEMOGLOBIN 28.5 pg (27.0-33.4); MEAN CORPUSCULAR HGB CONC 33.3 g/dL (32.0-36.0); MEAN CORPUSCULAR VOLUME 86 fl (80-97); MONOCYTES % (AUTO) 12.6 % (3-13); PLATELET COUNT 225 10^3/uL (150-450); RED CELL DISTRIBUTION WIDTH 16.5 % (11.5-14.0); TOTAL CELLS COUNTED % (AUTO) 100 %; WHITE BLOOD COUNT 4.6 10^3/uL (4.0-10.5)
[2017-08-15] MEDS ORDERED: FUROSEMIDE INJ/PF 40 MG/4 ML SDV IV ONE (11:08)
[2017-08-15 11:35] LABS: NT PRO BNP 1870 pg/mL (5-900)
[2017-08-15 11:37] LABS: CREATINE KINASE MB < 0.22 ng/mL (<4.55); TROPONIN I < 0.012 ng/mL
[2017-08-15 12:36] LABS: ALANINE AMINOTRANSFERASE 27 U/L (9-52); ALBUMIN 3.7 g/dL (3.5-5.0); ALKALINE PHOSPHATASE 146 U/L (38-126); ANION GAP 11 (5-19); ASPARTATE AMINO TRANSFERASE 20 U/L (14-36); BILIRUBIN,DIRECT 0.5 mg/dL (0.0-0.4); BILIRUBIN,TOTAL 0.7 mg/dL (0.2-1.3); BLOOD UREA NITROGEN 10 mg/dL (7-20); CALCIUM 8.8 mg/dL (8.4-10.2); CARBON DIOXIDE 30 mmol/L (22-30); CHLORIDE 98 mmol/L (98-107); GLUCOSE 204 mg/dL (75-110); LIPASE 65.1 U/L (23-300); POTASSIUM 3.1 mmol/L (3.6-5.0); SODIUM 139.4 mmol/L (137-145); TOTAL PROTEIN 7.1 g/dL (6.3-8.2)
--- NOTE | 2017-08-15 13:10 | EKG REPORT ---
SEVERITY:- ABNORMAL ECG - ATRIAL FIBRILLATION, V-RATE 96-156 LEFT AXIS DEVIATION LOW VOLTAGE IN FRONTAL LEADS BORDERLINE R WAVE PROGRESSION, ANTERIOR LEADS NONSPECIFIC T ABNORMALITIES, LATERAL LEADS : Confirmed by: Eliel Juarez MD 15-Aug-2017 13:09:19
[2017-08-15] MEDS ORDERED: POTASSI CL 40 MEQ/NS 1L 1,000 ML IV PRN (14:23)
[2017-08-15] MEDS ORDERED: ZOLPIDEM TARTRATE 5 MG TABLET PO PRN (16:19)
[2017-08-15] MEDS ORDERED: ACETAMINOPHEN 325 MG TABLET PO PRN (16:19)
[2017-08-15] MEDS ORDERED: MORPHINE SULFATE 10 MG/ML INJ IV PRN (16:33)
[2017-08-15] MEDS ORDERED: DILTIAZEM HCL INJ 25 MG/5 ML VIAL IV ONE (17:37)
[2017-08-15] MEDS ORDERED: POTASSIUM CHLORIDE 10 MEQ TABLET.SA PO ONE ×2 (17:39→22:00)
[2017-08-15] MEDS ORDERED: DEXTROSE 50%-WATER SYRINGE 12.5 GM/25 ML DOSE IV PRN (18:15)
[2017-08-15] MEDS ORDERED: DEXTROSE 40% GEL 15 GM TUBE X 2 PO PRN (18:15)
[2017-08-15] MEDS ORDERED: DEXTROSE 40% GEL 15 GM TUBE PO PRN (18:15)
[2017-08-15] MEDS ORDERED: GLUCAGON,HUMAN RECOMB 1 MG INJ IM PRN (18:15)
[2017-08-15] MEDS ORDERED: DEXTROSE 50%-WATER SYRINGE 25 GM/50 ML DOSE IV PRN (18:15)
--- NOTE | 2017-08-15 18:17 | PDOC H&P ---
History of Present Illness Admission Date/PCP: 08/15/17 14:54 KIMBERLY FALL MD Patient complains of: Shortness of breath and difficulty brreathing History of Present Illness: JOSH WALKER is a 66 year old female patient presented to the emergency room with complaints of difficulty breathing as well as shortness of breath associated with a cough with a whitish phlegm and pain over the lower part of the chest and abdomen. She also complained of swelling of her lower extremity. She denies any diarrhea fever or any palpitations. She was found to be in atrial fibrillation with a rapid ventricular response in the emergency room. She does give a prior history of atrial fib but denies known history of congestive heart failure. She is followed by Dr. Rogel and says she saw him just a few months ago. Go to be careful the transfer text Past Medical History Cardiac Medical History: Reports: Atrial Fibrillation, Hypertension Pulmonary Medical History: Reports: Asthma Neurological Medical History: Reports: Migraine Endocrine Medical History: Reports: Diabetes Mellitus Type 2 Musculoskeltal Medical History: Reports: Arthritis Skin Medical History: Reports: Psoriasis Past Surgical History Past Surgical History: Reports: Tubal Ligation Social History Information Source: Patient Lives with: Family Smoking Status: Never Smoker Frequency of Alcohol Use: None Hx Recreational Drug Use: No Drugs: None Hx Prescription Drug Abuse: No Family History Family History: Reviewed & Not Pertinent, Arthritis, CAD, CVA, DM, Hyperlipidemia, Hypertension, Malignancy, Thyroid Disfunction Parental Family History Reviewed: No Children Family History Reviewed: Unknown Sibling(s) Family History Reviewed.: Unknown Medication/Allergy Home Medications: Atorvastatin Calcium [Lipitor 40 mg Tablet] 40 mg PO QHS 08/15/17 Diltiazem HCl [Cardizem Cd 180 mg Capsule] 180 mg PO Q12 08/15/17 Furosemide [Lasix 40 mg Tablet] 40 mg PO BID 08/15/17 Insulin Aspart [Novolog Flexpen] 0 units SQ .PERSLIDINGSCALE 08/15/17 Insulin Degludec [Tresiba Flextouch U-100] 60 units SQ DAILY 08/15/17 Isosorbide Mononitrate [Imdur 30 mg Tablet.er] 30 mg PO DAILY 08/15/17 Metoprolol Succinate [Toprol XL 100 mg Tablet] 100 mg PO BID 08/15/17 RX: Albuterol Sulfate [Ventolin 0.083% Neb 2.5 mg/3 mL Ampul] 3 ml NEB RTQ4HP PRN 08/15/17 RX: Aspirin [Adult Low Dose Aspirin EC] 81 mg PO DAILY 08/15/17 Warfarin Sodium [Coumadin 5 mg Tablet] 5 mg PO QHS 08/15/17 Allergies/Adverse Reactions: cephalexin monohydrate [From Keflex] Allergy (Verified 08/15/17 09:15) levofloxacin [From Levaquin] Allergy (Verified 08/15/17 09:15) Review of Systems Constitutional: ABSENT: chills, fever(s), headache(s) Eyes: PRESENT: as per HPI. ABSENT: visual disturbances Ears: ABSENT: hearing changes Respiratory: PRESENT: cough, dyspnea, sputum Gastrointestinal: ABSENT: abdominal pain, constipation, diarrhea, hematemesis, hematochezia, nausea, vomiting Genitourinary: PRESENT: as per HPI Neurological: PRESENT: as per HPI Endocrine: PRESENT: as per HPI Physical Exam Vital Signs: Temp Pulse Resp BP Pulse Ox 98.9 F 82 22 H 150/125 H 94 08/15/17 16:25 08/15/17 09:19 08/15/17 15:01 08/15/17 15:01 08/15/17 15:01 Intake & Output 08/14/17 08/15/17 08/16/17 06:59 06:59 06:59 Output Total 1800 Balance -1800 General appearance: PRESENT: no acute distress, obese, well-developed, well- nourished Head exam: PRESENT: atraumatic, normocephalic Eye exam: PRESENT: conjunctiva pink, EOMI, PERRLA. ABSENT: scleral icterus Ear exam: PRESENT: normal external ear exam Mouth exam: PRESENT: moist, tongue midline Neck exam: ABSENT: carotid bruit, JVD, lymphadenopathy, thyromegaly Respiratory exam: PRESENT: decreased breath sounds, rales, rhonchi, tachypnea. ABSENT: unlabored, wheezes Cardiovascular exam: PRESENT: irregular rhythm. ABSENT: diastolic murmur, rubs , systolic murmur Pulses: PRESENT: normal dorsalis pedis pul Vascular exam: PRESENT: normal capillary refill GI/Abdominal exam: PRESENT: normal bowel sounds, soft. ABSENT: distended, guarding, mass, organolmegaly, rebound, tenderness Rectal exam: PRESENT: deferred Extremities exam: PRESENT: full ROM, pedal edema, +2 edema. ABSENT: calf tenderness, clubbing Neurological exam: PRESENT: alert, awake, oriented to person, oriented to place , oriented to time, oriented to situation, CN II-XII grossly intact. ABSENT: motor sensory deficit Psychiatric exam: PRESENT: appropriate affect, normal mood. ABSENT: homicidal ideation, suicidal ideation Skin exam: PRESENT: cyanosis, dry, rash - Chronic skin changes, blisters, weeping lower extremities, warm Results Laboratory Results: Alergies cephalexin monohydrate [From Keflex] Allergy (Verified 08/15/17 09:15) levofloxacin [From Levaquin] Allergy (Verified 08/15/17 09:15) Patient Prescrptions Albuterol Sulfate [Ventolin 0.083% Neb 2.5 mg/3 mL Ampul] 3 ml NEB RTQ4HP PRN Aspirin [Adult Low Dose Aspirin EC] 81 mg PO DAILY 08/15/17 Atorvastatin Calcium [Lipitor 40 mg Tablet] 40 mg PO QHS 08/15/17 Diltiazem HCl [Cardizem Cd 180 mg Capsule] 180 mg PO Q12 08/15/17 Furosemide [Lasix 40 mg Tablet] 40 mg PO BID 08/15/17 Insulin Aspart [Novolog Flexpen] 0 units SQ .PERSLIDINGSCALE 08/15/17 Insulin Degludec [Tresiba Flextouch U-100] 60 units SQ DAILY 08/15/17 Isosorbide Mononitrate [Imdur 30 mg Tablet.er] 30 mg PO DAILY 08/15/17 Metoprolol Succinate [Toprol XL 100 mg Tablet] 100 mg PO BID 08/15/17 Warfarin Sodium [Coumadin 5 mg Tablet] 5 mg PO QHS 08/15/17 Isolation Standard Height 5 ft 9 in Weight 120 kg IV? Yes : No Please enter food consistency: Regular Consistency Please choose liquid type: Regular Liquids Discharge Information ED Provider: JANNA BASSETT Status: Bed Request Time Seen by Provider: 08/15/17 09:37 Condition: Serious Triaged At: 08/15/17 09:15 Emergency Discharge Date/Time: Emergency Discharge Disposition: ADMITTED INPATIENT Clinical Impression Atrial fibrillation with rapid ventricular response Acute congestive heart failure Hypoxia Emergency Discharge Comment: Admit Intervention Last Done Vital Signs (ED) 08/15/17 16:25 Query Result Temperature 98.9 F Temperature Source Oral Oxygen Delivery Method (includes room Nasal Cannula air) Oxygen Flow Rate 1 Discharge Documentation Left Without Being Seen (LWBS) Left Against Medical Advice (AMA)/Eloped Inpatient Discharge Date/Time: Inpatient Discharge Disposition: Inpatient Discharge Comment: Instructions: Stand-Alone Forms: Prescriptions: Visit Report - Forms: - Referrals: KIMBERLY FALL MD (Primary Care Provider) - Follow up as needed Intake and Output 08/14/17 08/15/17 08/16/17 06:59 06:59 06:59 Output Total 1800 Balance -1800 Weight 120 kg Output: Urine 1800 Radiology Reports Chest X-Ray 08/15/17 09:41 IMPRESSION: Bandlike airspace disease right upper lobe adjacent to the minor fissure, atelectasis versus pneumonia Medications Generic Name Dose Route Start Last Admin Trade Name Freq PRN Reason Stop Dose Admin Acetaminophen 650 mg 08/15/17 16:19 Tylenol 325 Mg Tablet PO 09/14/17 16:18 Q4HP PRN Albuterol/Ipratropium 3 ml 08/15/17 16:19 Duoneb 3 Ml Ampul NEB 09/14/17 16:18 RTQ4HP PRN SHORTNESS OF BREATH Aspirin 81 mg 08/16/17 10:00 Ecotrin 81 Mg Ec Tablet PO 09/15/17 09:59 DAILY POOL Atorvastatin Calcium 40 mg 08/15/17 22:00 Lipitor 40 Mg Tablet PO 09/14/17 21:59 QHS POOL Diltiazem HCl 180 mg 08/15/17 22:00 Cardizem Cd 180 Mg Capsule PO 09/14/17 21:59 Q12 POOL Docusate Sodium 100 mg 08/16/17 10:00 Colace 100 Mg Capsule PO 09/15/17 09:59 DAILY POOL Famotidine 20 mg 08/15/17 22:00 Pepcid 20 Mg Tablet PO 09/14/17 21:59 Q12 POOL Furosemide 40 mg 08/15/17 22:00 Lasix Inj/Pf 40 Mg/4 Ml Sdv IV 09/14/17 21:59 Q12 POOL Potassium Chloride/Sodium Chloride 1,000 mls @ 50 mls/hr 08/15/17 14:23 02/27 /18 15:27 Nacl 0.9% 1000 Ml/Kcl 40 Meq Premix Bag IV 09/14/17 14:22 1,000 ml CONTINUOUS PRN Administration THIS MED IS NOT "PRN" Morphine Sulfate 1 mg 08/15/17 16:33 Morphine 10 Mg/Ml Inj IV 08/22/17 16:32 Q4HP PRN Nitroglycerin 1 gm 08/15/17 18:00 Nitrol 2% Ointment 1gm Packet TP 09/14/17 17:59 Q6 [facility] Ondansetron HCl 4 mg 08/15/17 16:19 Zofran Inj/Pf 4 Mg/2 Ml Sdv IV 09/14/17 16:18 Q6HP PRN FOR NAUSEA/VOMITING Oxycodone/Acetaminophen 1 tab 08/15/17 16:19 Percocet 5-325 Mg Tablet PO 08/22/17 16:18 Q6HP PRN Patient Own Medication 60 units 08/16/17 10:00 Insulin Degludec [Tresiba Flextouch U-100] SQ 09/15/17 09:59 DAILY [facility] Patient Own Medication 100 mg 08/15/17 18:00 Metoprolol Succinate [Toprol Xl 100 Mg Tablet] PO 09/14/17 17:59 BID [facility] Patient Own Medication 5 mg 08/15/17 22:00 Warfarin Sodium PO 09/14/17 21:59 QHS [facility] Zolpidem Tartrate 5 mg 08/15/17 16:19 Ambien 5 Mg Tablet PO 08/22/17 16:18 HSP PRN SLEEP OR INSOMNIA Discontinued Medications Generic Name Dose Route Start Last Admin Trade Name Freq PRN Reason Stop Dose Admin Albuterol/Ipratropium 3 ml 08/15/17 09:40 08/15/17 10:56 Duoneb 3 Ml Ampul NEB 08/15/17 09:41 3 ml NOW ONE Administration Benzonatate 100 mg 08/15/17 09:40 08/15/17 11:40 Tessalon Perles 100 Mg Capsule PO 08/15/17 09:41 100 mg NOW ONE Administration Enoxaparin Sodium 40 mg 08/16/17 10:00 Lovenox Inj 40 Mg/0.4 Ml Disp.Syrin SUBCUT 09/15/17 09:59 DAILY [facility] Furosemide 40 mg 08/15/17 11:08 08/15/17 11:40 Lasix Inj/Pf 40 Mg/4 Ml Sdv IV 08/15/17 11:09 40 mg NOW ONE Administration Sodium Chloride 1,000 mls @ 0 mls/hr 08/15/17 09:40 08/15/17 10:54 Nacl 0.9% 1000 Ml Iv Soln IV 08/15/17 09:41 1,000 ml BOLUS ONE Administration Wide Open Metoprolol Tartrate 5 mg 08/15/17 10:47 08/15/17 10:58 Lopressor Inj/Pf 5 Mg/5 Ml Sdv IV 08/15/17 10:48 5 mg NOW ONE Administration Ondansetron HCl 8 mg 08/15/17 09:40 08/15/17 10:59 Zofran Inj/Pf 4 Mg/2 Ml Sdv IV 08/15/17 09:41 8 mg NOW ONE Administration Nursing Notes 08/15/17 10:18 ED PCT Note by MARIA LUISA BEE Patient in CT at this time Initialized on 08/15/17 10:18 - END OF NOTE 08/15/17 10:00 (created 08/15/17 11:27) ED Nursing Note by AYAH STALLINGS pt arrived to the Ed with complaints of nausea, vomiting, intermittent productive cough, weakness, chills and chest congestion and pressure. pt states that she started feeling this way yesterday and it has just gotten worse. pt states that she is having shortness of breath and the breathing treatments help. Pt is flush and speaking slower than she normally does per family. Pt states that she has vomited 3 or 4 times since yesterday and has not been able to eat or sleep much. pt is lying in bed with family at bedside. will continue to monitor Initialized on 08/15/17 11:27 - END OF NOTE 08/15/17 09:39 ED Nursing Note by REGIS MEYER Pt arrived to ED with family c/o n/v since yesterday. pt c/o abdominal pain only with vomiting. Pt c/o cough since Monday. Pt c/o generalized weakness. Pt in w/c. Even rise and fall of chest. Initialized on 08/15/17 09:39 - END OF NOTE 08/15/17 09:16 Nursing Note by MALIA MONTERO PT AMBULATORY TO ER WITH C/O NAUSEA VOMITING CHILLS COUGH AND CONGESTION REPORTS STARTED YESTERDAY. Initialized on 08/15/17 09:16 - END OF NOTE Orders 08/15/17 EKG ER ONLY [ER] Stat 08/15/17 09:40 Saline Lock (ED) NOW Benzonatate [Tessalon Perles 100 mg Capsule] 100 mg PO NOW ONE Ipratropium/Albuterol Sulfate [Duoneb 3 ml Ampul] 3 ml NEB NOW ONE Normal Saline 1000 ml [NaCl 0.9% 1000 ml IV Soln] 1,000 ml IV BOLUS Ondansetron HCl/Pf [Zofran Inj/Pf 4 mg/2 ml Sdv] 8 mg IV NOW ONE 08/15/17 09:41 Cardiac Monitoring (ED) CONTINUOUS CHEST PA/LAT [RAD] Stat 08/15/17 09:50 INFLUENZA A/B (RAPID FLU) [MO] Stat 08/15/17 10:05 BNP (In-House) [NT PRO BNP] [CHEM] Stat CBC WITH DIFF [HEME] Stat CREATINE KINASE MB [CHEM] Stat TROPONIN I [CHEM] Stat 08/15/17 10:11 EKG Documentation STAT 08/15/17 10:38 EKG Documentation STAT 08/15/17 10:47 Metoprolol Tartrate [Lopressor Inj/Pf 5 mg/5 ml Sdv] 5 mg IV NOW ONE 08/15/17 11:08 Furosemide [Lasix Inj/Pf 40 mg/4 ml Sdv] 40 mg IV NOW ONE 08/15/17 12:07 COMPREHENSIVE METABOLIC PANEL [CHEM] Stat LIPASE [CHEM] Stat 08/15/17 14:23 Potassi Cl 40 Meq/Ns 1L [NaCl 0.9% 1000 ml/KCl 40 Meq Premix Bag] 1,000 ml IV CONTINUOUS 08/15/17 16:19 Up Ad Jenise [RC] .ROUTINE Acetaminophen [Tylenol 325 mg Tablet] 650 mg PO Q4HP PRN Ipratropium/Albuterol Sulfate [Duoneb 3 ml Ampul] 3 ml NEB RTQ4HP PRN Ondansetron HCl/Pf [Zofran Inj/Pf 4 mg/2 ml Sdv] 4 mg IV Q6HP PRN Oxycodone HCl/Acetaminophen [Percocet 5-325 mg Tablet] 1 tab PO Q6HP PRN Zolpidem Tartrate [Ambien 5 mg Tablet] 5 mg PO HSP PRN Resuscitation Status Routine 08/15/17 16:20 Adult Intake and Output [RC] QSHIFT Patient Status-Admission .Routine Vital Signs [RC] Q4H Weight [RC] Q6AM 08/15/17 16:24 Oxygen Nasal Cannula 2 lpm 08/15/17 16:29 Nebulizer Therapy Routine [RESPCARE] RTQ4HP 08/15/17 16:30 TROPONIN I [CHEM] Q6H Mechanical Prophylaxis .ROUTINE Pharmacological Prophylaxis .ROUTINE 08/15/17 16:31 Patient Education-VTE [RC] QSHIFT Diego Hose [RC] QSHIFT 08/15/17 16:32 Patient Education-Lovenox [RC] DAILY Patient Education-VTE [RC] QSHIFT 08/15/17 16:33 Morphine Sulfate [Morphine 10 mg/ml Inj] 1 mg IV Q4HP PRN 08/15/17 16:38 PROTHROMBIN TIME/INR [COAG] Routine 08/15/17 18:00 Metoprolol Succinate [Toprol XL 100 mg Tablet] 100 mg PO BID Nitroglycerin [Nitrol 2% Ointment 1Gm Packet] 1 gm TP Q6 08/15/17 22:00 Atorvastatin Calcium [Lipitor 40 mg Tablet] 40 mg PO QHS Diltiazem HCl [Cardizem Cd 180 mg Capsule] 180 mg PO Q12 Famotidine [Pepcid 20 mg Tablet] 20 mg PO Q12 Furosemide [Lasix Inj/Pf 40 mg/4 ml Sdv] 40 mg IV Q12 Warfarin Sodium 5 mg PO QHS 08/15/17 22:30 TROPONIN I [CHEM] Q6H 08/15/17 Dinner Adult Diet [DIET] 08/16/17 06:00 BASIC METABOLIC PANEL [CHEM] IN AM CBC WITHOUT DIFF [HEME] IN AM 08/16/17 10:00 Aspirin [Ecotrin 81 mg EC Tablet] 81 mg PO DAILY Docusate Sodium [Colace 100 mg Capsule] 100 mg PO DAILY Enoxaparin Sodium [Lovenox Inj 40 mg/0.4 ml Disp.syrin] 40 mg SUBCUT DAILY Insulin Degludec [Tresiba Flextouch U-100] 60 units SQ DAILY Problems Acute congestive heart failure (Acute) Atrial fibrillation with rapid ventricular response (Acute) Hypoxia (Acute) Vital Signs Temp Pulse Resp BP Pulse Ox 08/15/17 16:25 98.9 F 02/27/18 15:01 22 H 150/125 H 94 08/15/17 15:00 18 96 08/15/17 14:01 25 H 154/103 H 94 08/15/17 14:00 26 H 94 08/15/17 13:56 28 H 156/96 H 95 08/15/17 13:55 30 H 94 08/15/17 13:01 29 H 167/130 H 08/15/17 13:00 26 H 97 08/15/17 12:30 30 H 169/92 H 89 L 08/15/17 12:29 21 H 87 L 08/15/17 12:01 20 145/108 H 92 08/15/17 12:00 30 H 94 08/15/17 11:38 32 H 177/91 H 89 L 08/15/17 11:37 26 H 89 L 08/15/17 11:01 23 H 155/113 H 90 L 08/15/17 11:00 22 H 89 L 08/15/17 10:00 23 H 93 08/15/17 09:59 25 H 93 08/15/17 09:19 99.5 F 82 24 H 153/83 H 92 Lab Result Diagrams 08/15/17 10:05 08/15/17 12:07 Assessments/Treatments Collect Specimen: INFLUENZA A/B (RAPID FLU) Start: 08/15/17 09:54 Freq: ONCE Status: Complete Activity Type Activity Date Activity User E-Sign Co-Sign Detail Recorded Client Recorded Date Recorded By Document 08/15/17 09:54 [facility] [id number] 08/15/17 09:54 [facility] ED Nursing Assessment Start: 08/15/17 09:16 Freq: NOW, Q12H Status: Active Activity Type Activity Date Activity User E-Sign Co-Sign Detail Recorded Client Recorded Date Recorded By Document 08/15/17 10:00 BCO [id number] 08/15/17 11:33 BCO 08/15/17 10:00 Neurological Assessment Level of Consciousness Awake Alert Appropriate Arousable To Name Orientation Oriented to Person Oriented to Place Oriented to Time Eye Opening Spontaneous Verbal Response Oriented Motor Response Obeys Commands GCS Total Score (15 points) 15 Psychological Assessment Mood Description Anxious Speech Pattern Clear Appropriate Rational Thinking Intact Anxiety Level Moderate Suicidal Ideation Description None Cardiovascular Assessment Heart Tones/Sounds Irregular Capillary Refill Less than 3 Seconds JVD present No Respiratory Assessment Posterior Bilateral Lower Lobe -Lung Sound Respiratory Phase Inspiratory -Breath Sounds Wheezes Respiratory Pattern Normal Respiratory Effort Normal Non-Labored Respiratory Depth Normal Chest Expansion Symmetrical Respiratory Rate (12-20 breaths/min) 20 Cough Frequency Intermittent Cough Description Productive Sputum Amount Small Sputum Consistency Thick Sputum Color White Oxygen Delivery Method Room Air Chest Tube Present No Tracheostomy Present No Skin Assessment Skin Color Flushed Skin Temperature Warm Gastrointestinal Assessment Abdomen Description Soft Non-Tender Large Round Ostomy present No Hernia Present No All Quadrants -Bowel Sounds Normoactive Bowel Pattern Normal GI Symptoms Nausea Vomiting How Long Had GI Symptoms 1 day Emesis Description Undigested Food Urinary Assessment Urinary Method Voiding Bladder Pattern Normal Medical/Surgical History Hx Arthritis Yes Hx Asthma Yes Hx Atrial Fibrillation Yes Hx Diabetes Mellitus Type 2 Yes Hx Hypertension Yes Hx Kidney Stones Yes Hx Migraine Yes Hx Tubal Ligation Yes 08/15/17 10:00 (created 08/15/17 11:27) ED Nursing Note by AYAH STALLINGS pt arrived to the Ed with complaints of nausea, vomiting, intermittent productive cough, weakness, chills and chest congestion and pressure. pt states that she started feeling this way yesterday and it has just gotten worse. pt states that she is having shortness of breath and the breathing treatments help. Pt is flush and speaking slower than she normally does per family. Pt states that she has vomited 3 or 4 times since yesterday and has not been able to eat or sleep much. pt is lying in bed with family at bedside. will continue to monitor Initialized on 08/15/17 11:27 - END OF NOTE EKG Documentation Start: 08/15/17 10:38 Freq: STAT Status: Complete Activity Type Activity Date Activity User E-Sign Co-Sign Detail Recorded Client Recorded Date Recorded By Document 08/15/17 10:38 RHE [email or web address] 08/15/17 10:39 RHE 08/15/17 10:38 EKG EKG EKG performed MD notified EKG given to MD Shown to Provider Yo Intake/Output Start: 08/15/17 09:16 Freq: Status: Active Activity Type Activity Date Activity User E-Sign Co-Sign Detail Recorded Client Recorded Date Recorded By Document 08/15/17 15:25 VANCE [id number] 08/15/17 15:25 VANCE Document 08/15/17 16:35 VANCE [email or web address] 08/15/17 16:35 VANCE 08/15/17 08/15/17 15:25 16:35 Intake / Output Urine (ml) 1,200 600 Pivot Start: 08/15/17 09:15 Freq: NOW Status: Complete Activity Type Activity Date Activity User E-Sign Co-Sign Detail Recorded Client Recorded Date Recorded By Document 08/15/17 09:15 GLU [id number] 08/15/17 09:16 GLU 08/15/17 09:15 Pivot Chief Complaint Nausea/Vomiting Priority Level 3H Pain Level 5 Comfort Measures Provided Other Other Comfort Measures WHEELCHAIR Is This a Long Bone Pain Patient? No Stroke/TIA Suspected No TRAVEL OUTSIDE OF THE [place] IN LAST 30 No DAYS 08/15/17 09:16 Nursing Note by MALIA MONTERO PT AMBULATORY TO ER WITH C/O NAUSEA VOMITING CHILLS COUGH AND CONGESTION REPORTS STARTED YESTERDAY. Initialized on 08/15/17 09:16 - END OF NOTE Status Rounds Assessment Start: 08/15/17 09:16 Freq: Q1 Status: Active Activity Type Activity Date Activity User E-Sign Co-Sign Detail Recorded Client Recorded Date Recorded By Document 08/15/17 11:00 BCO [id number] 08/15/17 14:05 BCO Document 08/15/17 12:00 BCO [id number] 08/15/17 14:06 BCO Document 08/15/17 13:00 BCO [id number] 08/15/17 14:06 BCO Document 08/15/17 14:00 BCO [id number] 08/15/17 14:06 BCO Document 08/15/17 15:00 VANCE [email or web address] 08/15/17 15:16 VANCE Document 08/15/17 16:00 VANCE [email or web address] 08/15/17 16:14 VANCE 08/15/17 08/15/17 08/15/17 11:00 12:00 13:00 ED Status Rounds Hourly Rounding Complete Yes Yes Yes Call Clement within Reach Yes Yes Yes Patient Location Patient in Room Patient in Room Patient in Room Patient Activity Awake Awake Awake Up at Bedside Up at Bedside Up at Bedside Visiting with Visiting with Visiting with Guests Guests Guests Family/Guardian Family/Guardian Family/Guardian at Bedside at Bedside at Bedside Patient Condition No Changes From No Changes From Previous Previous Assessment Assessment Patient Grain Manager Present No No Report Given To Report Received From Report Via 08/15/17 08/15/17 08/15/17 14:00 15:00 16:00 ED Status Rounds Hourly Rounding Complete Yes Yes Yes Call Clement within Reach Yes Yes Yes Patient Location Patient in Room Patient in Room Patient in Room Patient Activity Awake Awake Awake Up at Bedside Resting Resting Visiting with Peacefully Peacefully Guests Visiting with Visiting with Guests Guests Patient Condition No Changes From No Changes From Previous Previous Assessment Assessment Patient Grain Manager Present No Report Given To Chema RN Report Received From Alyssa GONZALEZ Report Via In Person Bedside Assisted Sales Representative CAPTURE Start: 08/15/17 09:16 Freq: Status: Active Activity Type Activity Date Activity User E-Sign Co-Sign Detail Recorded Client Recorded Date Recorded By Document 08/15/17 09:59 BCO [id number] 08/15/17 14:05 BCO Document 08/15/17 10:00 BCO [id number] 08/15/17 14:05 BCO Document 08/15/17 11:00 BCO [id number] 08/15/17 14:05 BCO Document 08/15/17 11:01 BCO [id number] 08/15/17 14:05 BCO Document 08/15/17 11:37 BCO [id number] 08/15/17 14:05 BCO Document 08/15/17 11:38 BCO [id number] 08/15/17 14:05 BCO Document 08/15/17 12:00 BCO [id number] 08/15/17 14:05 BCO Document 08/15/17 12:01 BCO [id number] 08/15/17 14:05 BCO Document 08/15/17 12:29 BCO [id number] 08/15/17 14:05 BCO Document 08/15/17 12:30 BCO [id number] 08/15/17 14:05 BCO Document 08/15/17 13:00 BCO [id number] 08/15/17 14:05 BCO Document 08/15/17 13:01 BCO [id number] 08/15/17 14:05 BCO Document 08/15/17 13:55 BCO [id number] 08/15/17 14:05 BCO Document 08/15/17 13:56 BCO [id number] 08/15/17 14:05 BCO Document 08/15/17 14:00 BCO [id number] 08/15/17 14:05 BCO Document 08/15/17 14:01 BCO [id number] 08/15/17 14:05 BCO Document 08/15/17 15:00 VANCE [email or web address] 08/15/17 15:47 VANCE Document 08/15/17 15:01 VANCE [email or web address] 08/15/17 15:47 VANCE 08/15/17 08/15/17 08/15/17 09:59 10:00 11:00 ED Monitor Capture Heart Rate (Monitors) 120 139 135 Respiratory Rate (12-20 breaths/min) 25 23 22 Pulse Oximetry (92-100) 93 93 89 Blood Pressure (100/60-125/85 mm Hg) Blood Pressure Mean (mm Hg) 08/15/17 08/15/17 08/15/17 11:01 11:37 11:38 ED Monitor Capture Heart Rate (Monitors) 131 135 126 Respiratory Rate (12-20 breaths/min) 23 26 32 Pulse Oximetry (92-100) 90 89 89 Blood Pressure (100/60-125/85 mm Hg) 155/113 177/91 Blood Pressure Mean (mm Hg) 127 119 08/15/17 08/15/17 08/15/17 12:00 12:01 12:29 ED Monitor Capture Heart Rate (Monitors) 138 136 126 Respiratory Rate (12-20 breaths/min) 30 20 21 Pulse Oximetry (92-100) 94 92 87 Blood Pressure (100/60-125/85 mm Hg) 145/108 Blood Pressure Mean (mm Hg) 120 08/15/17 08/15/17 08/15/17 12:30 13:00 13:01 ED Monitor Capture Heart Rate (Monitors) 141 114 130 Respiratory Rate (12-20 breaths/min) 30 26 29 Pulse Oximetry (92-100) 89 97 Blood Pressure (100/60-125/85 mm Hg) 169/92 167/130 Blood Pressure Mean (mm Hg) 117 142 08/15/17 08/15/17 08/15/17 13:55 13:56 14:00 ED Monitor Capture Heart Rate (Monitors) 119 128 125 Respiratory Rate (12-20 breaths/min) 30 28 26 Pulse Oximetry (92-100) 94 95 94 Blood Pressure (100/60-125/85 mm Hg) 156/96 Blood Pressure Mean (mm Hg) 116 08/15/17 08/15/17 08/15/17 14:01 15:00 15:01 ED Monitor Capture Heart Rate (Monitors) 140 137 139 Respiratory Rate (12-20 breaths/min) 25 18 22 Pulse Oximetry (92-100) 94 96 94 Blood Pressure (100/60-125/85 mm Hg) 154/103 150/125 Blood Pressure Mean (mm Hg) 120 133 Triage- Gastrointestinal Start: 08/15/17 09:16 Freq: NOW Status: Complete Activity Type Activity Date Activity User E-Sign Co-Sign Detail Recorded Client Recorded Date Recorded By Document 08/15/17 09:38 JDE [id number] 08/15/17 09:40 JDE 08/15/17 09:38 HPI- Gastrointestinal Problem Onset Yesterday Associated symptoms nausea vomiting weakness Other coughing Similar symptoms previously No Recently seen / treated by doctor No Abdominal Pain Onset Location generalized abdomen Pain Level 3 Quality Intermittent Exacerbated by Other Other vomitting Severity at worst Severe Severity when seen in ED Moderate Infection Control Screen CRE Precaution Screen Negative History Isolation Precautions Standard Triage Nursing Assessment Allergies Verified Yes Pre-Hospital Treatment None Seeking Treatment Today For No Mental Health Issues Communication Barriers No Hearing Impaired No Do You Live Alone? No Is there family present? Yes Thoughts of by Suicide in the Last No 30 Days Homicidial Thoughts in the Last 30 Days No Smoking Status Never Smoker Drug Abuse None Frequency of alcohol use None Peritoneal Dialysis Patient No 08/15/17 09:39 ED Nursing Note by REGIS MEYER Pt arrived to ED with family c/o n/v since yesterday. pt c/o abdominal pain only with vomiting. Pt c/o cough since Monday. Pt c/o generalized weakness. Pt in w/c. Even rise and fall of chest. Initialized on 08/15/17 09:39 - END OF NOTE Vital Signs (ED) Start: 08/15/17 09:15 Freq: Q4H Status: Active Activity Type Activity Date Activity User E-Sign Co-Sign Detail Recorded Client Recorded Date Recorded By Document 08/15/17 16:25 VANCE [email or web address] 08/15/17 16:25 VANCE 08/15/17 16:25 Vital Signs Temperature (97.0 F-100.4 F) 98.9 F Temperature Source Oral Oxygen Delivery Method (includes room Nasal Cannula air) Oxygen Flow Rate 1 Vital Signs CAPTURE Start: 08/15/17 09:16 Freq: Status: Active Activity Type Activity Date Activity User E-Sign Co-Sign Detail Recorded Client Recorded Date Recorded By Document 08/15/17 09:19 PRAKASH [email or web address] 08/15/17 09:20 KarissaJO 08/15/17 09:19 VS4 Data Capture Temperature (97.0 F-100.4 F) 99.5 F VS4 Temperature Source Oral Pulse Rate (60-100 beats/min) 82 Pulse Source Pulse Ox Respiratory Rate (12-20 breaths/min) 24 Pulse Oximetry (92-100) 92 Oxygen Delivery Method Room Air BP Location Right Arm BP Position Sitting Blood Pressure (100/60-125/85 mm Hg) 153/83 Blood Pressure Mean (mm Hg) 106 Impressions: Chest X-Ray 08/15/17 09:41 IMPRESSION: Bandlike airspace disease right upper lobe adjacent to the minor fissure, atelectasis versus pneumonia Assessment & Plan - Diagnosis (1) Acute respiratory failure Qualifiers: Respiratory failure complication: hypoxia Qualified Code(s): J96.01 - Acute respiratory failure with hypoxia Is this a current diagnosis for this admission?: Yes Plan: Secondary to CHF (2) Acute congestive heart failure Qualifiers: Heart failure type: unspecified Qualified Code(s): I50.9 - Heart failure, unspecified Is this a current diagnosis for this admission?: Yes Plan: Patient denies any history of CHF however will obtain echo. BNP is elevated. She will placed on Lasix as well as Vasodilators (3) Atrial fibrillation with rapid ventricular response Is this a current diagnosis for this admission?: Yes Plan: Patient is still tachycardic and so she will be given Cardizem IV 10 mg bolus and I will also go ahead and give her oral dose at this time will continue to monitor her closely. Serial cardiac enzymes are to be obtained. Further referrals to be done as necessary. She will also be placed in a Coumadin after checking a PT and INR (4) Hypertension Qualifiers: Qualified Code(s): I10 - Essential (primary) hypertension Is this a current diagnosis for this admission?: Yes Plan: BP is poorly controlled likely associated with acute decompensated CHF and pulmonary edema. 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 Qualified Code(s): E11.8 - Type 2 diabetes mellitus with unspecified complications Is this a current diagnosis for this admission?: Yes Plan: We will place her on sliding scale insulin and continue her basal and long acting insulin - Time Time Spent: 30 to 50 Minutes Critical Time spent with patient: Less than 15 minutes Medications reviewed and adjusted accordingly: Yes Anticipated discharge: Home Within: within 72 hours - Inpatient Certification Based on my medical assessment, after consideration of the patient's comorbidities, presenting symptoms, or acuity I expect that the services needed warrant INPATIENT care.: Yes I certify that my determination is in accordance with my understanding of Medicare's requirements for reasonable and necessary INPATIENT services [42 CFR 412.3e].: Yes Medical Necessity: Need For Continuous Telemetry Monitoring, Risk of Complication if Not Cared For in Hospital
[2017-08-15] MEDS ORDERED: DILTIAZEM HCL 60 MG TABLET PO ONE (18:30)
[2017-08-15 18:40] LABS: INTERNATIONAL RATION (INR) 1.11; PROTHROMBIN TIME 15.1 SEC (11.4-15.4)
[2017-08-15] MEDS: NITROGLYCERIN 2% OINTMENT 1 GM PACKET TP SCH (18:58)
[2017-08-15] MEDS: FUROSEMIDE INJ/PF 40 MG/4 ML SDV IV SCH (21:24)
[2017-08-15] MEDS: DILTIAZEM HCL 180 MG CAPSULE.CR PO SCH (21:25)
[2017-08-15] MEDS: METOPROLOL SUCCINATE 50 MG TAB.SR.24H PO SCH (21:25)
[2017-08-15] MEDS: FAMOTIDINE 20 MG TABLET PO SCH (21:26)
[2017-08-15] MEDS: ATORVASTATIN CALCIUM 40 MG TABLET PO SCH (21:27)
[2017-08-15] MEDS: INSULIN GLARGINE,HUM.REC.ANLOG 1,000 UNIT/10 ML UNIT SUBCUT SCH (21:27)
[2017-08-15] MEDS ORDERED: WARFARIN SODIUM 5 MG TABLET PO SCH (22:00)
[2017-08-15] MEDS ORDERED: (PENDING PHARMACY ID) (Warfarin Sodium 5 MG) PO SCH (22:00)
[2017-08-15 22:30] LABS: INTERNATIONAL RATION (INR) 1.11; PROTHROMBIN TIME 15.1 SEC (11.4-15.4)
[2017-08-16] MEDS: NITROGLYCERIN 2% OINTMENT 1 GM PACKET TP SCH ×5 (00:07→23:42)
[2017-08-16] MEDS ORDERED: DILTIAZEM HCL 60 MG TABLET PO ONE (04:15)
[2017-08-16] MEDS ORDERED: DILTIAZEM HCL INJ 25 MG/5 ML VIAL IV ONE ×2 (04:15→05:30)
[2017-08-16] MEDS: ONDANSETRON HCL INJ/PF 4 MG/2 ML SDV IV PRN ×2 (04:36→17:02)
[2017-08-16 05:19] LABS: HEMOGLOBIN 13.6 g/dL (12.0-15.5); MEAN CORPUSCULAR HEMOGLOBIN 28.1 pg (27.0-33.4); MEAN CORPUSCULAR HGB CONC 32.3 g/dL (32.0-36.0); MEAN CORPUSCULAR VOLUME 87 fl (80-97); PLATELET COUNT 213 10^3/uL (150-450); RED BLOOD COUNT 4.84 10^6/uL (3.72-5.28); RED CELL DISTRIBUTION WIDTH 16.7 % (11.5-14.0); WHITE BLOOD COUNT 4.7 10^3/uL (4.0-10.5)
[2017-08-16 05:33] LABS: ANION GAP 8 (5-19); BLOOD UREA NITROGEN 15 mg/dL (7-20); CALCIUM 8.7 mg/dL (8.4-10.2); CARBON DIOXIDE 33 mmol/L (22-30); CHLORIDE 97 mmol/L (98-107); GLUCOSE 193 mg/dL (75-110); POTASSIUM 3.8 mmol/L (3.6-5.0); SODIUM 138.2 mmol/L (137-145)
[2017-08-16 06:21] LABS: ALANINE AMINOTRANSFERASE 24 U/L (9-52); ALBUMIN 3.6 g/dL (3.5-5.0); ALKALINE PHOSPHATASE 130 U/L (38-126); ASPARTATE AMINO TRANSFERASE 25 U/L (14-36); BILIRUBIN,DIRECT 0.2 mg/dL (0.0-0.4); BILIRUBIN,TOTAL 0.6 mg/dL (0.2-1.3); TOTAL PROTEIN 6.5 g/dL (6.3-8.2)
[2017-08-16] MEDS: FAMOTIDINE 20 MG TABLET PO SCH ×2 (09:43→22:29)
[2017-08-16] MEDS: DILTIAZEM HCL 180 MG CAPSULE.CR PO SCH (09:43)
[2017-08-16] MEDS: DOCUSATE SODIUM 100 MG CAPSULE PO SCH (09:43)
[2017-08-16] MEDS: METOPROLOL SUCCINATE 50 MG TAB.SR.24H PO SCH ×2 (09:44→22:29)
[2017-08-16] MEDS: ASPIRIN 81 MG TABLET, ENT COATED PO SCH (09:44)
[2017-08-16] MEDS: FUROSEMIDE INJ/PF 40 MG/4 ML SDV IV SCH ×2 (09:45→22:28)
[2017-08-16] MEDS ORDERED: ENOXAPARIN SODIUM INJ 40 MG/0.4 ML DISP.SYRIN SUBCUT SCH (10:00)
[2017-08-16] MEDS ORDERED: INSULIN DEGLUDEC 60 UNIT SQ SCH (10:00)
[2017-08-16] MEDS: INSULIN LISPRO 100 UNIT/ML 3 ML VIAL SUBCUT PRN ×3 (11:50→22:28)
[2017-08-16] MEDS ORDERED: DIGOXIN INJ 0.5 MG/2 ML AMPULE IV ONE (11:51)
--- NOTE | 2017-08-16 12:17 | PDOC PROGRESS REPORT ---
Subjective Progress Note for:: 08/16/17 Subjective:: Patient admitted with difficulty breathing and shortness of breath and found to be in atrial fibrillation with rapid ventricular response. Patient remains in A. fib this morning and had to receive several doses of diltiazem during the night. She states she is a little better. She denies any chest pain nausea vomiting. Reason For Visit: ACUTE CHF DECOMPENSATION,HYPERTENSIVE URGENCY, Physical Exam Vital Signs: Temp Pulse Resp BP Pulse Ox 98.2 F 120 H 22 H 131/97 H 93 08/16/17 09:47 08/15/17 17:08 08/16/17 11:01 08/16/17 11:01 08/16/17 11:01 Intake & Output 08/15/17 08/16/17 08/17/17 06:59 06:59 06:59 Output Total 2400 Balance -2400 General appearance: PRESENT: no acute distress Head exam: PRESENT: atraumatic Eye exam: PRESENT: conjunctiva pink, EOMI, PERRLA. ABSENT: scleral icterus Ear exam: PRESENT: normal external ear exam Mouth exam: PRESENT: moist, tongue midline Respiratory exam: PRESENT: decreased breath sounds, rhonchi, unlabored. ABSENT : tachypnea, wheezes Cardiovascular exam: PRESENT: irregular rhythm, +S1, +S2, tachycardia Pulses: PRESENT: normal dorsalis pedis pul GI/Abdominal exam: PRESENT: normal bowel sounds, soft. ABSENT: distended, guarding, mass, organolmegaly, rebound, tenderness Rectal exam: PRESENT: deferred Extremities exam: PRESENT: full ROM. ABSENT: calf tenderness, clubbing, pedal edema Neurological exam: PRESENT: alert, awake, oriented to person, oriented to place , oriented to time, oriented to situation, CN II-XII grossly intact. ABSENT: motor sensory deficit Psychiatric exam: PRESENT: appropriate affect Skin exam: PRESENT: dry, intact, warm. ABSENT: cyanosis, rash Results Laboratory Results: 08/16/17 05:10 08/16/17 05:43 08/16/17 08/16/17 08/16/17 05:10 05:10 05:10 WBC 4.7 RBC 4.84 Hgb 13.6 Hct 42.0 MCV 87 MCH 28.1 MCHC 32.3 RDW 16.7 H Plt Count 213 Sodium 138.2 Potassium 3.8 Chloride 97 L Carbon Dioxide 33 H Anion Gap 8 BUN 15 Creatinine 0.93 Est GFR ( Amer) > 60 Est GFR (Non-Af Amer) > 60 Glucose 193 H Calcium 8.7 Magnesium 2.2 Total Bilirubin 0.6 AST 25 ALT 24 Alkaline Phosphatase 130 H Total Protein 6.5 Albumin 3.6 08/16/17 05:43 WBC RBC Hgb Hct MCV MCH MCHC RDW Plt Count Sodium Cancelled Potassium Cancelled Chloride Cancelled Carbon Dioxide Cancelled Anion Gap Cancelled BUN Cancelled Creatinine Cancelled Est GFR ( Amer) Cancelled Est GFR (Non-Af Amer) Cancelled Glucose Cancelled Calcium Cancelled Magnesium Cancelled Total Bilirubin Cancelled AST Cancelled ALT Cancelled Alkaline Phosphatase Cancelled Total Protein Cancelled Albumin Cancelled 08/15/17 08/15/17 16:47 22:10 Troponin I < 0.012 < 0.012 Impressions: Chest X-Ray 08/15/17 09:41 IMPRESSION: Bandlike airspace disease right upper lobe adjacent to the minor fissure, atelectasis versus pneumonia Assessment & Plan - Diagnosis (1) Acute respiratory failure Qualifiers: Respiratory failure complication: hypoxia Qualified Code(s): J96.01 - Acute respiratory failure with hypoxia Is this a current diagnosis for this admission?: Yes Plan: Secondary to CHF, r/o underlying PE (2) Acute congestive heart failure Qualifiers: Heart failure type: unspecified Qualified Code(s): I50.9 - Heart failure, unspecified Is this a current diagnosis for this admission?: Yes Plan: Patient denies any history of CHF however will obtain echo. BNP is elevated. She will placed on Lasix as well as Vasodilators (3) Atrial fibrillation with rapid ventricular response Is this a current diagnosis for this admission?: Yes Plan: Patient is still tachycardic despite numerous doses of Cardizem parenterally as well as orally. She will be given 1 dose of digoxin and I will spread out her Cardizem. TSH will be obtained as well as a CTA to rule out underlying PE. INR was also quite subtherapeutic at 1.2 and so she will be placed on Lovenox bridge and will continue the Coumadin at a slightly increased dose. (4) Hypertension Qualifiers: Is this a current diagnosis for this admission?: Yes Plan: BP is poorly controlled likely associated with acute decompensated CHF and pulmonary edema. 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 Will start on empiric antibiotics and review - Time Time Spent with patient: 15-24 minutes Anticipated discharge: Home Within: within 72 hours - Inpatient Certification Medical Necessity: Need Close Monitoring Due to Risk of Patient Decompensation, Need for Nebulizer Therapy and Monitoring of Response, Need for IV Antibiotics
[2017-08-16] MEDS: IPRATROPIUM/ALBUTEROL 0.5-2.5 MG/3 ML AMPUL NEB PRN ×2 (12:22→20:12)
[2017-08-16] MEDS: DILTIAZEM HCL 90 MG TABLET PO SCH ×3 (12:51→23:42)
[2017-08-16] MEDS ORDERED: ENOXAPARIN SODIUM INJ 120 MG/0.8 ML DISP.SYRIN SUBCUT ONE (13:00)
[2017-08-16] MEDS ORDERED: ERTAPENEM SODIUM 1 GM in NORMAL SALINE 50 ML IV SCH (14:00)
[2017-08-16] MEDS: ERTAPENEM SODIUM 1 GM in NORMAL SALINE 100 ML IV SCH (14:37)
[2017-08-16] MEDS ORDERED: WARFARIN SODIUM 5 MG TABLET PO SCH (14:59)
[2017-08-16 16:01] LABS: APPEARANCE,URINE CLEAR; BILIRUBIN,URINE NEGATIVE (NEGATIVE); COLOR,URINE YELLOW; GLUCOSE, URINE NEGATIVE (NEGATIVE); KETONES,URINE NEGATIVE (NEGATIVE); LEUKOCYTE ESTERASE,URINE NEGATIVE (NEGATIVE); NITRITE,URINE NEGATIVE (NEGATIVE); PROTEIN,URINE NEGATIVE (NEGATIVE); URINE SPECIFIC GRAVITY 1.009; UROBILINOGEN,URINE NEGATIVE mg/dL (<2.0)
--- NOTE | 2017-08-16 16:18 | RADIOLOGY REPORT (SQ) ---
EXAM DESCRIPTION: CTA CHEST COMPLETED DATE/TIME: 08/16/2017 4:00 pm REASON FOR STUDY: persistent A fib, dyspnea COMPARISON: Two-view chest 08/15/2017 CT angio chest 12/10/2015 TECHNIQUE: CT scan of the chest performed using helical scanning technique with dynamic intravenous contrast injection. Images reviewed with lung, soft tissue and bone windows. Reconstructed coronal and sagittal MPR images reviewed. Additional 3 dimensional post-processing performed to develop Maximal Intensity Projection images (MS P). All images stored on PACS. All CT scanners at this facility use dose modulation, iterative reconstruction, and/or weight based d osing when appropriate to reduce radiation dose to as low as reasonably achievable (ALARA). [facility]: Dose Right [facility]: CareDose [facility]: Dose Right [facility]: Teradose 4D [facility]: [employer] CONTRAST TYPE AND DOSE: contrast/concentration: Isovue 370.00 mg/ml; Total Contrast Delivered: 71.0 ml; Total Saline Delivered: 103.5 ml Contrast bolus optimized for the pulmonary arteries. Not diagnostic for the aorta. RENAL FUNCTION: Creatinine 0.93 RADIATION DOSE: CT Rad equipment meets quality standard of care and radiation dose reduction techniq ues were employed. CTDIvol: 15.5 - 33.8 mGy. DLP: 565 mGy-cm. . LIMITATIONS: None. FINDINGS: LUNGS AND PLEURA: There is patchy airspace disease in the right upper lobe adjacent to the minor fissure from mild focal pneumonia. This is similar compared to chest film 08/15/2017. Remainder of the lungs are free of focal infiltrates. No pleural effusions. No pneumothorax. AORTA AND GREAT VESSELS: No aneurysm. Contrast bolus not optimized for the aorta. HEART: Mild cardiomegaly. No pericardial effusion. No significant coronary artery calcifications. PULMONARY ARTERIES: No emboli visualized in the main pulmonary arteries or the segmental branches. HILAR AND MEDIASTINAL STRUCTURES: No identified masses or abnormal nodes. HARDWARE: None in the chest. UPPER ABDOMEN: No significant findings. Limited exam. THYROID AND OTHER SOFT TISSUES: No masses. No adenopathy. BONES: Chronic appearing mild 25% upper endplate compression of T12 with bony sclerosis. This is new compared to CT angio chest in 2016 3D MIPS: Confirm above findings. OTHER: No other significant finding. IMPRESSION: Minimal right upper lobe airspace disease worrisome for pneumonia. No CT angio evidence of acute pulmonary emboli. COMMENT: Quality ID # [id number]: Final reports with documentation of one or more dose reduction techniques (e.g., Automated exposure control, adjustment of the mA and/or kV according to patient size, use of iterative reconstruction technique) TECHNICAL DOCUMENTATION: JOB ID: [id number] [employer]- All Rights Reserved Reading location - IP/workstation name: [facility]
--- NOTE | 2017-08-16 19:33 | XCELERA REPORT ---
[address] [address] Transthoracic Echocardiogram Report Name: JOSH WALKER Age: 66 yrs Gender: Female : 1950 Patient Status: Inpatient Patient Location: [address] [place] [address] Study Date: 08/16/2017 02:44 PM Height: 69 in Weight: 264 lb BSA: 2.3 m2 Procedure: A complete two-dimensional transthoracic echocardiogram was performed (2D, M-mode, spectral and color flow Doppler). The study was technically difficult with many images being suboptimal in quality. Reason For Study: Atrial fibrillation with RVR Ordering Physician: OLIVER DOBSON Performed By: Jacklyn Arthur Interpretation Summary The study was technically difficult with many images being suboptimal in quality. Left ventricular systolic function is low normal. There is mild concentric left ventricular hypertrophy. The left ventricle is grossly normal size. Doppler measurements suggest pseudonormalized left ventricular relaxation, which is associated with grade II/IV or mild to moderate diastolic dysfunction Wall motion cannot be accurately commented on, but no definite regional wall motion abnormalities noted. The right ventricle is mildly dilated. The right atrium is mildly dilated. The left atrium is borderline dilated. There is no mitral valve stenosis. There is a trace amount of mitral regurgitation There is no aortic valve stenosis No aortic regurgitation is present. There is no tricuspid stenosis. No tricuspid regurgitation. The aortic root is not well visualized. The inferior vena cava was not well visualized There is no pericardial effusion. MMode/2D Measurements & Calculations RVDd: 3.8 cm LVIDd: 5.8 cm FS: 30.9 % Ao root diam: 3.0 cm IVSd: 1.1 cm LVIDs: 4.0 cm EDV(Teich): 167.7 ml LVPWd: 0.99 cm ESV(Teich): 70.7 ml Ao root area: 7.2 cm2 EF(Teich): 57.8 % LA dimension: 3.4 cm Doppler Measurements & Calculations MV E max drew: MV P1/2t max drew: Ao V2 max: LV V1 max P.4 cm/sec 100.2 cm/sec 87.4 cm/sec 1.7 mmHg MV P1/2t: 64.3 msec Ao max PG: LV V1 max: 3.1 mmHg 64.7 cm/sec MVA(P1/2t): 3.4 cm2 MV dec slope: 456.7 cm/sec2 PA V2 max: 76.0 cm/sec PA max P.3 mmHg Left Ventricle The left ventricle is grossly normal size. There is mild concentric left ventricular hypertrophy. Left ventricular systolic function is low normal. Doppler measurements suggest pseudonormalized left ventricular relaxation, which is associated with grade II/IV or mild to moderate diastolic dysfunction. Wall motion cannot be accurately commented on, but no definite regional wall motion abnormalities noted. Right Ventricle The right ventricle is mildly dilated. There is normal right ventricular wall thickness. The right ventricular systolic function is normal. Atria The right atrium is mildly dilated. The left atrium is borderline dilated. Interarterial septum not well visualized and not well dopplered. Cannot comment on ASD/PFO presence. Mitral Valve The mitral valve leaflets are sclerotic, but show no functional abnormalities. There is no mitral valve stenosis. There is a trace amount of mitral regurgitation. Aortic Valve The aortic valve opens well. There is no aortic valve stenosis. No aortic regurgitation is present. Tricuspid Valve The tricuspid valve is not well visualized secondary to technical limitations. There is no tricuspid stenosis. No tricuspid regurgitation. Pulmonic Valve The pulmonic valve is not well visualized. Great Vessels The aortic root is not well visualized. The inferior vena cava was not well visualized. Effusions There is no pericardial effusion. : OLIVER DOBSON > Nella Gonzalez
[2017-08-16] MEDS: WARFARIN SODIUM 7.5 MG TABLET PO SCH (22:28)
[2017-08-16] MEDS: ENOXAPARIN SODIUM INJ 120 MG/0.8 ML DISP.SYRIN SUBCUT SCH (22:28)
[2017-08-16] MEDS: INSULIN GLARGINE,HUM.REC.ANLOG 1,000 UNIT/10 ML UNIT SUBCUT SCH (22:28)
[2017-08-16] MEDS: ATORVASTATIN CALCIUM 40 MG TABLET PO SCH (22:29)
[2017-08-17] MEDS: IPRATROPIUM/ALBUTEROL 0.5-2.5 MG/3 ML AMPUL NEB PRN ×3 (04:02→19:30)
[2017-08-17 05:34] LABS: INTERNATIONAL RATION (INR) 1.17; PROTHROMBIN TIME 15.7 SEC (11.4-15.4)
[2017-08-17] MEDS: DILTIAZEM HCL 90 MG TABLET PO SCH ×4 (06:13→23:54)
[2017-08-17] MEDS: NITROGLYCERIN 2% OINTMENT 1 GM PACKET TP SCH ×2 (06:17→11:29)
[2017-08-17] MEDS: ENOXAPARIN SODIUM INJ 120 MG/0.8 ML DISP.SYRIN SUBCUT SCH ×2 (09:24→21:18)
[2017-08-17] MEDS: ASPIRIN 81 MG TABLET, ENT COATED PO SCH (09:24)
[2017-08-17] MEDS: FAMOTIDINE 20 MG TABLET PO SCH ×2 (09:24→21:18)
[2017-08-17] MEDS: FUROSEMIDE INJ/PF 40 MG/4 ML SDV IV SCH (09:29)
[2017-08-17] MEDS: METOPROLOL SUCCINATE 50 MG TAB.SR.24H PO SCH ×2 (09:31→21:19)
[2017-08-17] MEDS: DOCUSATE SODIUM 100 MG CAPSULE PO SCH (09:34)
[2017-08-17] MEDS: INSULIN LISPRO 100 UNIT/ML 3 ML VIAL SUBCUT PRN ×3 (13:00→22:56)
--- NOTE | 2017-08-17 13:49 | PDOC PROGRESS REPORT ---
Subjective Progress Note for:: 08/17/17 Subjective:: Patient admitted with difficulty breathing and shortness of breath and found to be in atrial fibrillation with rapid ventricular response. Patient remains in A. fib this morning and had to receive several doses of diltiazem during the night. She states she feels better. She denies any chest pain nausea vomiting. Reason For Visit: ACUTE CHF DECOMPENSATION,HYPERTENSIVE URGENCY, PNA Physical Exam Vital Signs: Temp Pulse Resp BP Pulse Ox 98.0 F 99 16 113/72 94 08/17/17 11:16 08/17/17 11:16 08/17/17 11:16 08/17/17 11:16 08/17/17 11:16 Intake & Output 08/16/17 08/17/17 08/18/17 06:59 06:59 06:59 Intake Total 1457 Output Total 2400 200 Balance -2400 1257 Weight 119 kg General appearance: PRESENT: no acute distress, obese, well-developed Head exam: PRESENT: atraumatic Eye exam: PRESENT: conjunctiva pink, EOMI, PERRLA. ABSENT: scleral icterus Ear exam: PRESENT: normal external ear exam Neck exam: ABSENT: carotid bruit, JVD, lymphadenopathy, thyromegaly Respiratory exam: PRESENT: decreased breath sounds, rhonchi, unlabored. ABSENT : chest wall tenderness, retraction, wheezes Cardiovascular exam: PRESENT: irregular rhythm, +S1, +S2 Pulses: PRESENT: normal dorsalis pedis pul Rectal exam: PRESENT: deferred Extremities exam: PRESENT: pedal edema, +2 edema, other - Lower extremities blisters Neurological exam: PRESENT: alert, awake, oriented to person, oriented to place , oriented to time, oriented to situation, CN II-XII grossly intact. ABSENT: motor sensory deficit Skin exam: PRESENT: vesicles - lower xtremities Results Laboratory Results: 08/16/17 05:10 08/16/17 05:43 08/16/17 08/17/17 15:42 04:38 TSH 3.34 Urine Color YELLOW Urine Appearance CLEAR Urine pH 5.0 Ur Specific [place] 1.009 Urine Protein NEGATIVE Urine Glucose (UA) NEGATIVE Urine Ketones NEGATIVE Urine Blood SMALL H Urine Nitrite NEGATIVE Ur Leukocyte Esterase NEGATIVE Urine WBC (Auto) 1 Urine RBC (Auto) 2 08/15/17 08/15/17 16:47 22:10 Troponin I < 0.012 < 0.012 Impressions: Chest X-Ray 08/15/17 09:41 IMPRESSION: Bandlike airspace disease right upper lobe adjacent to the minor fissure, atelectasis versus pneumonia Chest/Abdomen CTA 08/16/17 00:00 IMPRESSION: Minimal right upper lobe airspace disease worrisome for pneumonia. No CT angio evidence of acute pulmonary emboli. Assessment & Plan - Diagnosis (1) Acute respiratory failure Qualifiers: Respiratory failure complication: hypoxia Qualified Code(s): J96.01 - Acute respiratory failure with hypoxia Is this a current diagnosis for this admission?: Yes Plan: Secondary to CHF, PE r/o. Patient is much improved and hypoxemia resolved (2) Acute congestive heart failure Qualifiers: Heart failure type: unspecified Qualified Code(s): I50.9 - Heart failure, unspecified Is this a current diagnosis for this admission?: Yes Plan: Patient denies any history of CHF. Echo done shows no significant finding. Patient likely has diastolic dysfunction precipitated by A. fib with RVR, respiratory failure and pneumonia. Echo shows left ventricular systolic function to be low normal with mild concentric left ventricular hypertrophy and CT angiogram reveals no evidence of acute pulmonary emboli with minimal right upper lobe airspace disease worrisome for pneumonia (3) Atrial fibrillation with rapid ventricular response Is this a current diagnosis for this admission?: Yes Plan: she received numerous doses of Cardizem and I change her Cardizem to 90 every 6 although she was on 180 twice daily at home. I also gave her a dose of digoxin and after starting antibiotics for a pneumonia patient's RVR did seem to resolve. She remains in atrial fibrillation which is chronic but she is now controlled. TSH is grossly normal as well as negative PE and insignificant echo She was placed on full strength Lovenox bridge as INR was therapeutic on admission at 1.1 and Coumadin dose has been increased to 7.5 (4) Hypertension Qualifiers: Is this a current diagnosis for this admission?: Yes Plan: Blood pressure is much improved and had placed on Nitropaste as a vasodilator but this can be discontinued if she remains stable (5) Obesity Qualifiers: Obesity type: due to excess calories Serious obesity comorbidity presence: with serious comorbidity Body mass index: BMI 39.0-39.9 Is this a current diagnosis for this admission?: Yes Plan: Advised to lose weight (6) Diabetes Qualifiers: Diabetes mellitus type: type 2 Diabetes mellitus complication status: with unspecified complications 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 mellitus 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 This is likely the driving force for the A. fib with RVR and possibly be acute pulmonary edema. We will continue Invanz as patient has responded pretty well to this. - Time Time Spent with patient: 15-24 minutes Medications reviewed and adjusted accordingly: Yes Anticipated discharge: Home Within: within 72 hours - Inpatient Certification Based on my medical assessment, after consideration of the patient's comorbidities, presenting symptoms, or acuity I expect that the services needed warrant INPATIENT care.: Yes Medical Necessity: Need For Continuous Telemetry Monitoring, Need for IV Antibiotics
[2017-08-17] MEDS: ERTAPENEM SODIUM 1 GM in NORMAL SALINE 100 ML IV SCH (14:29)
[2017-08-17] MEDS: ATORVASTATIN CALCIUM 40 MG TABLET PO SCH (21:18)
[2017-08-17] MEDS: WARFARIN SODIUM 7.5 MG TABLET PO SCH (21:18)
[2017-08-17] MEDS: INSULIN GLARGINE,HUM.REC.ANLOG 1,000 UNIT/10 ML UNIT SUBCUT SCH (21:18)
[2017-08-18 04:41] LABS: HEMATOCRIT 39.7 % (36.0-47.0); HEMOGLOBIN 13.2 g/dL (12.0-15.5); MEAN CORPUSCULAR HEMOGLOBIN 28.5 pg (27.0-33.4); MEAN CORPUSCULAR HGB CONC 33.3 g/dL (32.0-36.0); MEAN CORPUSCULAR VOLUME 85 fl (80-97); PLATELET COUNT 187 10^3/uL (150-450); RED BLOOD COUNT 4.65 10^6/uL (3.72-5.28); RED CELL DISTRIBUTION WIDTH 16.7 % (11.5-14.0); WHITE BLOOD COUNT 3.3 10^3/uL (4.0-10.5)
[2017-08-18 04:48] LABS: INTERNATIONAL RATION (INR) 1.31; PROTHROMBIN TIME 17.1 SEC (11.4-15.4)
[2017-08-18 05:15] LABS: ANION GAP 7 (5-19); BLOOD UREA NITROGEN 14 mg/dL (7-20); CALCIUM 8.7 mg/dL (8.4-10.2); CARBON DIOXIDE 35 mmol/L (22-30); CHLORIDE 95 mmol/L (98-107); GLUCOSE 160 mg/dL (75-110); POTASSIUM 3.4 mmol/L (3.6-5.0); SODIUM 136.6 mmol/L (137-145)
[2017-08-18] MEDS: DILTIAZEM HCL 90 MG TABLET PO SCH ×4 (06:00→23:20)
[2017-08-18] MEDS: FAMOTIDINE 20 MG TABLET PO SCH ×2 (09:28→23:19)
[2017-08-18] MEDS: ENOXAPARIN SODIUM INJ 120 MG/0.8 ML DISP.SYRIN SUBCUT SCH ×2 (09:28→23:19)
[2017-08-18] MEDS: DOCUSATE SODIUM 100 MG CAPSULE PO SCH (09:28)
[2017-08-18] MEDS: FUROSEMIDE INJ/PF 40 MG/4 ML SDV IV SCH (09:29)
[2017-08-18] MEDS: METOPROLOL SUCCINATE 50 MG TAB.SR.24H PO SCH ×2 (09:29→23:19)
[2017-08-18] MEDS: ASPIRIN 81 MG TABLET, ENT COATED PO SCH (09:29)
[2017-08-18] MEDS: IPRATROPIUM/ALBUTEROL 0.5-2.5 MG/3 ML AMPUL NEB PRN ×2 (10:10→16:16)
[2017-08-18] MEDS: INSULIN LISPRO 100 UNIT/ML 3 ML VIAL SUBCUT PRN ×3 (11:43→23:20)
[2017-08-18] MEDS: GUAIFENESIN SYRP 200 MG/10 ML UDC PO PRN ×2 (12:51→23:20)
[2017-08-18] MEDS ORDERED: PREDNISONE 20 MG TABLET PO ONE (13:00)
[2017-08-18] MEDS: ERTAPENEM SODIUM 1 GM in NORMAL SALINE 100 ML IV SCH (13:50)
--- NOTE | 2017-08-18 16:36 | PDOC PROGRESS REPORT ---
Subjective Progress Note for:: 08/18/17 Subjective:: Patient is feeling pretty weak today. Overall she thinks her breathing has improved however. She is continues to wheeze. No fevers or chills. She is coughing quite a bit and does have some yellow phlegm production. No chest pain. No pleuritic chest pain. No nausea or vomiting. Her appetite is poor. No constipation or dysuria. No difficulty sleeping. Reason For Visit: ACUTE CHF DECOMPENSATION,HYPERTENSIVE URGENCY, Physical Exam Vital Signs: Temp Pulse Resp BP Pulse Ox 98.6 F 80 20 144/86 H 97 08/18/17 11:12 08/18/17 14:00 08/18/17 11:12 08/18/17 11:12 08/18/17 11:12 Intake & Output 08/17/17 08/18/17 08/19/17 06:59 06:59 06:59 Intake Total 1457 1148 Output Total 200 Balance 1257 1148 Weight 119 kg 120.1 kg General appearance: PRESENT: no acute distress, cooperative, obese Head exam: PRESENT: atraumatic, normocephalic Eye exam: PRESENT: conjunctiva pink, EOMI. ABSENT: scleral icterus Ear exam: PRESENT: drainage, normal external ear exam Mouth exam: PRESENT: moist, tongue midline Respiratory exam: PRESENT: decreased breath sounds, prolonged expiratory phas, rales, wheezes. ABSENT: retraction, rhonchi Cardiovascular exam: PRESENT: irregular rhythm. ABSENT: systolic murmur Pulses: PRESENT: normal radial pulses GI/Abdominal exam: PRESENT: normal bowel sounds, soft. ABSENT: distended, guarding, tenderness Rectal exam: PRESENT: deferred Extremities exam: ABSENT: pedal edema, tenderness Neurological exam: PRESENT: alert, awake, oriented to person, oriented to place , oriented to situation, CN II-XII grossly intact Psychiatric exam: PRESENT: appropriate affect. ABSENT: anxious Skin exam: PRESENT: dry, intact, warm Results Laboratory Results: 08/18/17 04:11 08/18/17 04:11 08/18/17 08/18/17 04:11 04:11 WBC 3.3 L RBC 4.65 Hgb 13.2 Hct 39.7 MCV 85 MCH 28.5 MCHC 33.3 RDW 16.7 H Plt Count 187 Sodium 136.6 L Potassium 3.4 L Chloride 95 L Carbon Dioxide 35 H Anion Gap 7 BUN 14 Creatinine 0.85 Est GFR ( Amer) > 60 Est GFR (Non-Af Amer) > 60 Glucose 160 H Calcium 8.7 08/15/17 08/15/17 08/18/17 16:47 22:10 04:11 Troponin I < 0.012 < 0.012 NT-Pro-B Natriuret Pep 403 EKG Comments: Atrial fibrillation with RVR Impressions: Chest X-Ray 08/15/17 09:41 IMPRESSION: Bandlike airspace disease right upper lobe adjacent to the minor fissure, atelectasis versus pneumonia Chest/Abdomen CTA 08/16/17 00:00 IMPRESSION: Minimal right upper lobe airspace disease worrisome for pneumonia. No CT angio evidence of acute pulmonary emboli. Status: Image reviewed by me - ekg Assessment & Plan - Diagnosis (1) Acute hypoxemic respiratory failure Is this a current diagnosis for this admission?: Yes Plan: Secondary to pneumonia, congestive heart failure with exacerbation, asthma exacerbation. We will continue to treat underlying conditions. Continue nasal cannula oxygen at 2 L. She is satting in the low 90s. (2) Acute congestive heart failure Qualifiers: Heart failure type: diastolic Qualified Code(s): I50.31 - Acute diastolic ( congestive) heart failure Is this a current diagnosis for this admission?: Yes Plan: This is likely a diastolic heart failure, exacerbated by uncontrolled rate with her A. fib with RVR. Will continue to diurese with Lasix 40 mg IV daily and will monitor electrolytes and renal function. We will continue to treat blood pressure and heart rate. (3) Atrial fibrillation with rapid ventricular response Is this a current diagnosis for this admission?: Yes Plan: We will continue with diltiazem. Rate is i better controlled. Will continue with warfarin as ordered and Lovenox as ordered. INR is 1.31 this morning. We will continue to monitor coags. (4) Pneumonia Qualifiers: Pneumonia type: due to unspecified organism Laterality: right Lung location: upper lobe of lung Qualified Code(s): J18.1 - Lobar pneumonia, unspecified organism Is this a current diagnosis for this admission?: Yes Plan: Improving, right upper lobe, continue Invanz. Guaifenesin as needed added for daytime use. Guaifenesin with codeine nightly as needed for cough and insomnia also made available. (5) Diabetes Qualifiers: Diabetes mellitus type: type 2 Diabetes mellitus complication status: with unspecified complications Diabetes mellitus fpc insulin use: unspecified fpc insulin use status Qualified Code(s): E11.8 - Type 2 diabetes mellitus with unspecified complications Is this a current diagnosis for this admission?: Yes Plan: Will continue patient's long-acting glargine and short acting lispro. Continue with diabetic diet. Will monitor glucose closely going forward as I started prednisone today. (6) Hypertension Qualifiers: Is this a current diagnosis for this admission?: Yes Plan: Improving. Continue nitrate. No changes made today. (7) Obesity Qualifiers: Obesity type: due to excess calories Serious obesity comorbidity presence: with serious comorbidity Body mass index: BMI 39.0-39.9 Is this a current diagnosis for this admission?: Yes Plan: Once patient is less acutely ill will veterans' counselor on the importance of weight loss given her noted medical problems. (8) Asthma Qualifiers: Asthma severity: moderate Is this a current diagnosis for this admission?: Yes Plan: Patient is having an asthma flare. I started her on prednisone. We will continue duo nebs. Will continue to treat pneumonia with antibiotics. - Time Time Spent with patient: 25-34 minutes Medications reviewed and adjusted accordingly: Yes - Inpatient Certification Based on my medical assessment, after consideration of the patient's comorbidities, presenting symptoms, or acuity I expect that the services needed warrant INPATIENT care.: Yes I certify that my determination is in accordance with my understanding of Medicare's requirements for reasonable and necessary INPATIENT services [42 CFR 412.3e].: Yes Medical Necessity: Significant Comorbidiites Make Outpatient Treatment Too Risky , Need Close Monitoring Due to Risk of Patient Decompensation, Risk of Complication if Not Cared For in Hospital
[2017-08-18 18:47] LABS: APPEARANCE,URINE CLEAR; BILIRUBIN,URINE NEGATIVE (NEGATIVE); COLOR,URINE STRAW; GLUCOSE, URINE >=500 mg/dL (NEGATIVE); KETONES,URINE NEGATIVE (NEGATIVE); LEUKOCYTE ESTERASE,URINE NEGATIVE (NEGATIVE); NITRITE,URINE NEGATIVE (NEGATIVE); PROTEIN,URINE NEGATIVE (NEGATIVE); URINE SPECIFIC GRAVITY 1.006; UROBILINOGEN,URINE NEGATIVE mg/dL (<2.0)
[2017-08-18] MEDS: INSULIN GLARGINE,HUM.REC.ANLOG 1,000 UNIT/10 ML UNIT SUBCUT SCH (23:18)
[2017-08-18] MEDS: ATORVASTATIN CALCIUM 40 MG TABLET PO SCH (23:19)
[2017-08-18] MEDS: WARFARIN SODIUM 7.5 MG TABLET PO SCH (23:19)
[2017-08-19 04:43] LABS: INTERNATIONAL RATION (INR) 1.51; PROTHROMBIN TIME 19.1 SEC (11.4-15.4)
[2017-08-19] MEDS: DILTIAZEM HCL 90 MG TABLET PO SCH ×4 (05:31→23:27)
[2017-08-19] MEDS: INSULIN LISPRO 100 UNIT/ML 3 ML VIAL SUBCUT PRN ×3 (07:31→17:31)
[2017-08-19] MEDS: ENOXAPARIN SODIUM INJ 120 MG/0.8 ML DISP.SYRIN SUBCUT SCH ×2 (09:42→21:38)
[2017-08-19] MEDS: FUROSEMIDE INJ/PF 40 MG/4 ML SDV IV SCH (09:43)
[2017-08-19] MEDS: DOCUSATE SODIUM 100 MG CAPSULE PO SCH (09:43)
[2017-08-19] MEDS: METOPROLOL SUCCINATE 50 MG TAB.SR.24H PO SCH ×2 (09:43→21:37)
[2017-08-19] MEDS: ASPIRIN 81 MG TABLET, ENT COATED PO SCH (09:43)
[2017-08-19] MEDS: IPRATROPIUM/ALBUTEROL 0.5-2.5 MG/3 ML AMPUL NEB PRN ×2 (09:43→23:19)
[2017-08-19] MEDS: FAMOTIDINE 20 MG TABLET PO SCH ×2 (09:43→21:37)
[2017-08-19] MEDS ORDERED: PREDNISONE 20 MG TABLET PO SCH (10:00)
[2017-08-19] MEDS: ERTAPENEM SODIUM 1 GM in NORMAL SALINE 100 ML IV SCH (13:45)
--- NOTE | 2017-08-19 17:55 | PDOC PROGRESS REPORT ---
Subjective Progress Note for:: 08/19/17 Subjective:: Patient feeling better in general. Her shortness of breath is improved. No chest pain or palpitations. Able to walk in the halls albeit slowly. No new fevers or chills. Cough is improved. No constipation or diarrhea. No dysuria. Reason For Visit: ACUTE CHF DECOMPENSATION,HYPERTENSIVE URGENCY, Physical Exam Vital Signs: Temp Pulse Resp BP Pulse Ox 97.6 F 80 20 130/94 H 94 08/19/17 17:00 08/19/17 17:00 08/19/17 17:00 08/19/17 17:00 08/19/17 17:00 Intake & Output 08/18/17 08/19/17 08/20/17 06:59 06:59 06:59 Intake Total 1148 830 485 Output Total 400 Balance 1148 430 485 Weight 120.1 kg General appearance: PRESENT: no acute distress, cooperative, obese Eye exam: PRESENT: conjunctiva pink Ear exam: PRESENT: normal external ear exam Mouth exam: PRESENT: moist Respiratory exam: PRESENT: decreased breath sounds, rales, unlabored. ABSENT: tachypnea, wheezes Cardiovascular exam: PRESENT: irregular rhythm Pulses: PRESENT: normal radial pulses GI/Abdominal exam: PRESENT: normal bowel sounds, soft. ABSENT: distended, tenderness Rectal exam: PRESENT: deferred Extremities exam: PRESENT: +2 edema Neurological exam: PRESENT: alert, awake, oriented to person, oriented to place , oriented to situation, CN II-XII grossly intact Psychiatric exam: PRESENT: appropriate affect. ABSENT: anxious Skin exam: PRESENT: dry, intact, warm Results Laboratory Results: 08/18/17 04:11 08/18/17 04:11 08/18/17 18:12 Urine Color STRAW Urine Appearance CLEAR Urine pH 6.0 Ur Specific [place] 1.006 Urine Protein NEGATIVE Urine Glucose (UA) >=500 H Urine Ketones NEGATIVE Urine Blood SMALL H Urine Nitrite NEGATIVE Ur Leukocyte Esterase NEGATIVE Urine WBC (Auto) 0 Urine RBC (Auto) 1 08/15/17 08/15/17 08/18/17 16:47 22:10 04:11 Troponin I < 0.012 < 0.012 NT-Pro-B Natriuret Pep 403 Impressions: Chest X-Ray 08/15/17 09:41 IMPRESSION: Bandlike airspace disease right upper lobe adjacent to the minor fissure, atelectasis versus pneumonia Chest/Abdomen CTA 08/16/17 00:00 IMPRESSION: Minimal right upper lobe airspace disease worrisome for pneumonia. No CT angio evidence of acute pulmonary emboli. Assessment & Plan - Diagnosis (1) Acute hypoxemic respiratory failure Is this a current diagnosis for this admission?: Yes (2) Acute congestive heart failure Qualifiers: Heart failure type: diastolic Qualified Code(s): I50.31 - Acute diastolic ( congestive) heart failure Is this a current diagnosis for this admission?: Yes Plan: Patient has pneumonia, CHF with exacerbation, probably asthma exacerbation. We will continue her nasal cannula as she needs it. She is still satting in the 90s. Continue to treat underlying conditions. (3) Atrial fibrillation with rapid ventricular response Is this a current diagnosis for this admission?: Yes Plan: Rate better controlled. Continue diltiazem. Continue full dose Lovenox and warfarin. Her INR is 1.5 today. We will continue to monitor coags. (4) Pneumonia Qualifiers: Pneumonia type: due to unspecified organism Laterality: right Lung location: upper lobe of lung Qualified Code(s): J18.1 - Lobar pneumonia, unspecified organism Is this a current diagnosis for this admission?: Yes Plan: Improving. Continue Invanz. 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 Will add a pre-meal scheduled dose to accompany the short acting bolus insulin. (6) Hypertension Qualifiers: Is this a current diagnosis for this admission?: Yes Plan: Stable. No change. (7) Obesity Qualifiers: Obesity type: due to excess calories Serious obesity comorbidity presence: with serious comorbidity Body mass index: BMI 39.0-39.9 Is this a current diagnosis for this admission?: Yes Plan: Will group home counselor when patient is feeling better on the dangers related to obesity. (8) Asthma Qualifiers: Asthma severity: moderate Is this a current diagnosis for this admission?: Yes Plan: Wheezing resolved. Patient feeling better. Continue prednisone with taper. - Time Time Spent with patient: 25-34 minutes - Inpatient Certification Based on my medical assessment, after consideration of the patient's comorbidities, presenting symptoms, or acuity I expect that the services needed warrant INPATIENT care.: Yes I certify that my determination is in accordance with my understanding of Medicare's requirements for reasonable and necessary INPATIENT services [42 CFR 412.3e].: Yes Medical Necessity: Need Close Monitoring Due to Risk of Patient Decompensation, Need For Continuous Telemetry Monitoring, Need for Nebulizer Therapy and Monitoring of Response, Risk of Complication if Not Cared For in Hospital
[2017-08-19 18:57] LABS: ANION GAP 9 (5-19); BLOOD UREA NITROGEN 17 mg/dL (7-20); CALCIUM 9.1 mg/dL (8.4-10.2); CARBON DIOXIDE 33 mmol/L (22-30); CHLORIDE 93 mmol/L (98-107); POTASSIUM 4.2 mmol/L (3.6-5.0); SODIUM 134.9 mmol/L (137-145)
[2017-08-19 19:06] LABS: GLUCOSE 432 mg/dL (75-110)
[2017-08-19] MEDS ORDERED: DEXTROSE 40% GEL 15 GM TUBE PO PRN ×2 (19:38)
[2017-08-19] MEDS ORDERED: DEXTROSE 50%-WATER 25 GM/50 ML DISP.SYRIN IV PRN ×2 (19:38)
[2017-08-19] MEDS ORDERED: GLUCAGON,HUMAN RECOMB 1 MG INJ IM PRN (19:38)
[2017-08-19] MEDS: INSULIN GLARGINE,HUM.REC.ANLOG 1,000 UNIT/10 ML UNIT SUBCUT SCH (21:35)
[2017-08-19] MEDS: INSULIN LISPRO 100 UNIT/ML 3 ML VIAL SUBCUT SCH (21:36)
[2017-08-19] MEDS: ATORVASTATIN CALCIUM 40 MG TABLET PO SCH (21:37)
[2017-08-19] MEDS: WARFARIN SODIUM 7.5 MG TABLET PO SCH (21:37)
[2017-08-19] MEDS: GUAIFENESIN/CODEINE PHOS 100-10 MG/ 5 ML UDC PO PRN (21:38)
[2017-08-20] MEDS: DILTIAZEM HCL 90 MG TABLET PO SCH ×3 (05:18→17:37)
[2017-08-20 06:26] LABS: INTERNATIONAL RATION (INR) 2.14; PROTHROMBIN TIME 25.1 SEC (11.4-15.4)
[2017-08-20 06:28] LABS: HEMATOCRIT 42.1 % (36.0-47.0); HEMOGLOBIN 13.8 g/dL (12.0-15.5); MEAN CORPUSCULAR HEMOGLOBIN 27.9 pg (27.0-33.4); MEAN CORPUSCULAR HGB CONC 32.7 g/dL (32.0-36.0); MEAN CORPUSCULAR VOLUME 85 fl (80-97); PLATELET COUNT 192 10^3/uL (150-450); RED BLOOD COUNT 4.94 10^6/uL (3.72-5.28); RED CELL DISTRIBUTION WIDTH 16.5 % (11.5-14.0); WHITE BLOOD COUNT 4.3 10^3/uL (4.0-10.5)
[2017-08-20 07:08] LABS: ANION GAP 12 (5-19); BLOOD UREA NITROGEN 17 mg/dL (7-20); CALCIUM 9.1 mg/dL (8.4-10.2); CARBON DIOXIDE 33 mmol/L (22-30); CHLORIDE 96 mmol/L (98-107); GLUCOSE 345 mg/dL (75-110); POTASSIUM 3.5 mmol/L (3.6-5.0); SODIUM 140.5 mmol/L (137-145)
[2017-08-20] MEDS ORDERED: POTASSIUM CHLORIDE 10 MEQ TABLET.SA PO ONE (07:49)
[2017-08-20] MEDS: INSULIN LISPRO 100 UNIT/ML 3 ML VIAL SUBCUT SCH ×4 (08:37→21:44)
[2017-08-20] MEDS: ASPIRIN 81 MG TABLET, ENT COATED PO SCH (09:37)
[2017-08-20] MEDS: METOPROLOL SUCCINATE 50 MG TAB.SR.24H PO SCH ×2 (09:37→21:48)
[2017-08-20] MEDS: FAMOTIDINE 20 MG TABLET PO SCH ×2 (09:37→21:49)
[2017-08-20] MEDS: DOCUSATE SODIUM 100 MG CAPSULE PO SCH (09:37)
[2017-08-20] MEDS: PREDNISONE 20 MG TABLET PO SCH (09:37)
[2017-08-20] MEDS: ENOXAPARIN SODIUM INJ 120 MG/0.8 ML DISP.SYRIN SUBCUT SCH ×2 (09:38→21:48)
[2017-08-20] MEDS: FUROSEMIDE INJ/PF 40 MG/4 ML SDV IV SCH (09:38)
[2017-08-20] MEDS: IPRATROPIUM/ALBUTEROL 0.5-2.5 MG/3 ML AMPUL NEB PRN (10:37)
[2017-08-20] MEDS ORDERED: DEXTROSE 50%-WATER SYRINGE 25 GM/50 ML DOSE IV PRN (10:52)
[2017-08-20] MEDS ORDERED: DEXTROSE 40% GEL 15 GM TUBE PO PRN (10:52)
[2017-08-20] MEDS ORDERED: GLUCAGON,HUMAN RECOMB 1 MG INJ IM PRN (10:52)
[2017-08-20] MEDS ORDERED: DEXTROSE 50%-WATER SYRINGE 12.5 GM/25 ML DOSE IV PRN (10:52)
[2017-08-20] MEDS ORDERED: DEXTROSE 40% GEL 15 GM TUBE X 2 PO PRN (10:52)
[2017-08-20] MEDS: INSULIN LISPRO 100 UNIT/ML 3 ML VIAL SUBCUT PRN ×3 (13:21→21:45)
[2017-08-20] MEDS: ERTAPENEM SODIUM 1 GM in NORMAL SALINE 100 ML IV SCH (13:22)
[2017-08-20] MEDS: NYSTATIN/TRIAMCIN CREAM 15 GM TP SCH ×2 (13:23→17:37)
--- NOTE | 2017-08-20 14:47 | PDOC PROGRESS REPORT ---
Subjective Progress Note for:: 08/20/17 Subjective:: Patient's breathing is better today. She got better sleep last night. Continues to cough with phlegm. No fevers or chills. She is sitting comfortably in her bedside chair with her daughter in the room. She thinks her swelling is going down. No dysuria or problems with her bowels. We discussed her chronic edema at length and the contribute and factors which are probably both heart failure and nutritional factors along with her obesity. Obesity counseling was performed. Reason For Visit: ACUTE CHF DECOMPENSATION,HYPERTENSIVE URGENCY, Physical Exam Vital Signs: Temp Pulse Resp BP Pulse Ox 97.4 F 82 18 118/87 H 95 08/20/17 07:58 08/20/17 14:00 08/20/17 10:37 08/20/17 07:58 08/20/17 10:37 Intake & Output 08/19/17 08/20/17 08/21/17 06:59 06:59 06:59 Intake Total 830 1230 358 Output Total 400 Balance 430 1230 358 Weight 119.5 kg General appearance: PRESENT: no acute distress, cooperative, morbidly obese Head exam: PRESENT: atraumatic, normocephalic Eye exam: PRESENT: conjunctiva pink, EOMI Ear exam: PRESENT: normal external ear exam Mouth exam: PRESENT: moist Neck exam: ABSENT: lymphadenopathy Respiratory exam: PRESENT: decreased breath sounds, rhonchi, wheezes Cardiovascular exam: PRESENT: irregular rhythm. ABSENT: tachycardia Pulses: PRESENT: normal radial pulses GI/Abdominal exam: PRESENT: normal bowel sounds, soft. ABSENT: distended, tenderness Rectal exam: PRESENT: deferred Extremities exam: PRESENT: +1 edema Musculoskeletal exam: PRESENT: ambulatory. ABSENT: tenderness Neurological exam: PRESENT: alert, awake, oriented to person, oriented to place , CN II-XII grossly intact. ABSENT: aphasic Psychiatric exam: PRESENT: appropriate affect. ABSENT: anxious Skin exam: PRESENT: warm, other - Moisture and erythema under pannus and breasts likely representing candidal intertrigo Results Laboratory Results: 08/20/17 06:13 08/20/17 06:13 08/19/17 08/20/17 08/20/17 18:10 06:13 06:13 WBC 4.3 RBC 4.94 Hgb 13.8 Hct 42.1 MCV 85 MCH 27.9 MCHC 32.7 RDW 16.5 H Plt Count 192 Sodium 134.9 L 140.5 Potassium 4.2 3.5 L Chloride 93 L 96 L Carbon Dioxide 33 H 33 H Anion Gap 9 12 BUN 17 17 Creatinine 0.77 0.78 Est GFR ( Amer) > 60 > 60 Est GFR (Non-Af Amer) > 60 > 60 Glucose 432 H* 345 H Calcium 9.1 9.1 08/15/17 08/15/17 08/18/17 16:47 22:10 04:11 Troponin I < 0.012 < 0.012 NT-Pro-B Natriuret Pep 403 Impressions: Chest X-Ray 08/15/17 09:41 IMPRESSION: Bandlike airspace disease right upper lobe adjacent to the minor fissure, atelectasis versus pneumonia Chest/Abdomen CTA 08/16/17 00:00 IMPRESSION: Minimal right upper lobe airspace disease worrisome for pneumonia. No CT angio evidence of acute pulmonary emboli. Assessment & Plan - Diagnosis (1) Acute hypoxemic respiratory failure Is this a current diagnosis for this admission?: Yes Plan: Secondary to diastolic heart failure and pneumonia. Continue to diuresis. Continue to treat pneumonia with antibiotics. Oxygen as needed try to wean as possible. (2) Acute congestive heart failure Qualifiers: Heart failure type: diastolic Qualified Code(s): I50.31 - Acute diastolic ( congestive) heart failure Is this a current diagnosis for this admission?: Yes Plan: She has diastolic heart failure on her echocardiogram. We will continue with diuresis. She will also continue on metoprolol and we will work on good blood pressure control. (3) Atrial fibrillation with rapid ventricular response Is this a current diagnosis for this admission?: Yes Plan: Rate is well controlled. Continue her diltiazem. To new her metoprolol. She is now therapeutic with her INR. I have decreased her warfarin from 7.5 mg to 6 mg nightly. Of note she is on 5 mg of warfarin at home. We will overlap her Lovenox with a therapeutic INR for 24 hours and so tonight will be her last dose of therapeutic Lovenox. (4) Pneumonia Qualifiers: Pneumonia type: due to unspecified organism Laterality: right Lung location: upper lobe of lung Qualified Code(s): J18.1 - Lobar pneumonia, unspecified organism Is this a current diagnosis for this admission?: Yes Plan: Patient is improving. Due to cephalosporin and Levaquin allergy patient was started on Invanz. She is doing well with this medication. She will continue for a total of 7 days which means 2 more days of Invanz. I have encouraged her to start to move around the room and to walk in the hallways with assistance. We have also encouraged deep breathing. (5) Diabetes Qualifiers: Diabetes mellitus type: type 2 Diabetes mellitus complication status: with unspecified complications Diabetes mellitus shelter insulin use: unspecified termite helper insulin use status Qualified Code(s): E11.8 - Type 2 diabetes mellitus with unspecified complications Is this a current diagnosis for this admission?: Yes Plan: CBGs have been high related to steroids. I have added a meal insulin dose to her bolus insulin. We will continue with her glargine. (6) Hypertension Qualifiers: Is this a current diagnosis for this admission?: Yes Plan: Blood pressure this morning was 118/87. Will continue current care. Weight loss has been counseled today. (7) Obesity Qualifiers: Obesity type: due to excess calories Serious obesity comorbidity presence: with serious comorbidity Body mass index: BMI 39.0-39.9 Is this a current diagnosis for this admission?: Yes Plan: Counseled weight loss. Talked about the dangers related to obesity and the benefits of weight loss. (8) Asthma Qualifiers: Asthma severity: moderate Is this a current diagnosis for this admission?: Yes Plan: Improving. Continue steroids with taper. (9) Candidal intertrigo Plan: Present under pannus and breasts. Nystatin cream ordered today. - Time Time Spent with patient: 25-34 minutes Medications reviewed and adjusted accordingly: Yes Anticipated discharge: Home - Inpatient Certification Based on my medical assessment, after consideration of the patient's comorbidities, presenting symptoms, or acuity I expect that the services needed warrant INPATIENT care.: Yes I certify that my determination is in accordance with my understanding of Medicare's requirements for reasonable and necessary INPATIENT services [42 CFR 412.3e].: Yes Medical Necessity: Need Close Monitoring Due to Risk of Patient Decompensation, Need for IV Antibiotics, Risk of Complication if Not Cared For in Hospital
[2017-08-20] MEDS: INSULIN GLARGINE,HUM.REC.ANLOG 1,000 UNIT/10 ML UNIT SUBCUT SCH (21:44)
[2017-08-20] MEDS: GUAIFENESIN/CODEINE PHOS 100-10 MG/ 5 ML UDC PO PRN (21:48)
[2017-08-20] MEDS: ATORVASTATIN CALCIUM 40 MG TABLET PO SCH (21:48)
[2017-08-20] MEDS ORDERED: WARFARIN SODIUM 3 MG TABLET PO SCH (22:00)
[2017-08-21] MEDS: DILTIAZEM HCL 90 MG TABLET PO SCH ×5 (00:20→23:40)
[2017-08-21 05:15] LABS: MEAN CORPUSCULAR HEMOGLOBIN 27.9 pg (27.0-33.4); MEAN CORPUSCULAR HGB CONC 32.6 g/dL (32.0-36.0); MEAN CORPUSCULAR VOLUME 86 fl (80-97); PLATELET COUNT 194 10^3/uL (150-450); RED BLOOD COUNT 4.67 10^6/uL (3.72-5.28); RED CELL DISTRIBUTION WIDTH 16.5 % (11.5-14.0); WHITE BLOOD COUNT 5.6 10^3/uL (4.0-10.5)
[2017-08-21 05:30] LABS: ANION GAP 8 (5-19); BLOOD UREA NITROGEN 18 mg/dL (7-20); CALCIUM 8.7 mg/dL (8.4-10.2); CARBON DIOXIDE 33 mmol/L (22-30); CHLORIDE 101 mmol/L (98-107); GLUCOSE 115 mg/dL (75-110); POTASSIUM 3.8 mmol/L (3.6-5.0); SODIUM 141.7 mmol/L (137-145)
[2017-08-21] MEDS: INSULIN LISPRO 100 UNIT/ML 3 ML VIAL SUBCUT SCH ×4 (09:25→23:37)
[2017-08-21] MEDS: PREDNISONE 20 MG TABLET PO SCH (09:26)
[2017-08-21] MEDS: ASPIRIN 81 MG TABLET, ENT COATED PO SCH (09:26)
[2017-08-21] MEDS: FAMOTIDINE 20 MG TABLET PO SCH ×2 (09:26→23:38)
[2017-08-21] MEDS: METOPROLOL SUCCINATE 50 MG TAB.SR.24H PO SCH ×2 (09:26→23:38)
[2017-08-21] MEDS: DOCUSATE SODIUM 100 MG CAPSULE PO SCH (09:26)
[2017-08-21] MEDS: NYSTATIN/TRIAMCIN CREAM 15 GM TP SCH ×3 (09:27→17:22)
[2017-08-21] MEDS ORDERED: FUROSEMIDE INJ/PF 20 MG/2 ML SDV IV SCH (10:00)
[2017-08-21] MEDS ORDERED: FUROSEMIDE INJ/PF 100 MG/10 ML SDV IV SCH (10:00)
[2017-08-21] MEDS ORDERED: ZOLPIDEM TARTRATE 5 MG TABLET PO PRN (10:30)
[2017-08-21 11:53] LABS: INTERNATIONAL RATION (INR) 2.63; PROTHROMBIN TIME 29.4 SEC (11.4-15.4)
[2017-08-21] MEDS: INSULIN LISPRO 100 UNIT/ML 3 ML VIAL SUBCUT PRN ×3 (13:15→23:40)
[2017-08-21] MEDS: ERTAPENEM SODIUM 1 GM in NORMAL SALINE 100 ML IV SCH (13:50)
[2017-08-21] MEDS ORDERED: MAG HYDROX/AL HYDROX/SIMETH SUSP 30 ML UDCUP PO ONE (15:40)
[2017-08-21] MEDS: ONDANSETRON HCL INJ/PF 4 MG/2 ML SDV IV PRN (16:07)
[2017-08-21] MEDS ORDERED: WARFARIN SODIUM 3 MG TABLET PO SCH (16:22)
--- NOTE | 2017-08-21 16:25 | RADIOLOGY REPORT (SQ) ---
EXAM DESCRIPTION: KUB/ABDOMEN (SINGLE VIEW) COMPLETED DATE/TIME: 08/21/2017 4:01 pm REASON FOR STUDY: abdominal pain COMPARISON: None. NUMBER OF VIEWS: One view. TECHNIQUE: Supine radiographic image of the abdomen acquired. LIMITATIONS: None. FINDINGS: BOWEL GAS PATTERN: Normal bowel gas pattern. No dilated loops. CALCIFICATIONS: There is a round radiopaque density in the right upper quadrant which could conceivab ly represent a calcified gallstone. If clinically warranted ultrasound may be of value for further e valuation SOFT TISSUES: No gross mass or suggestion of organomegaly. HARDWARE: None in the abdomen. BONES: No acute fracture. No worrisome bone lesions. OTHER: No other significant finding. IMPRESSION: Nonspecific intestinal bowel gas pattern. Round radiopaque density projected in the rig ht upper quadrant as noted above which could conceivably represent a calcified gallstone. If clinica lly warranted ultrasound may be of value for further evaluation. Other findings as noted above TECHNICAL DOCUMENTATION: JOB ID: [id number] [employer]- All Rights Reserved Reading location - IP/workstation name: [email or web address]
--- NOTE | 2017-08-21 16:27 | PDOC PROGRESS REPORT ---
Subjective Progress Note for:: 08/21/17 Subjective:: Patient admitted with difficulty breathing and shortness of breath and found to be in atrial fibrillation with rapid ventricular response. Patient remains in A. fib this morning and had to receive several doses of diltiazem during the night. She states she feels better. She denies any chest pain nausea vomiting. She c/o abdominal pain today Reason For Visit: ACUTE CHF DECOMPENSATION,HYPERTENSIVE URGENCY, Physical Exam Vital Signs: Temp Pulse Resp BP Pulse Ox 97.3 F 90 16 125/51 L 96 08/21/17 11:29 08/21/17 14:00 08/21/17 12:50 08/21/17 11:29 08/21/17 12:50 Intake & Output 08/20/17 08/21/17 08/22/17 06:59 06:59 06:59 Intake Total 1230 2970 356 Output Total 0 Balance 1230 2970 356 Weight 119.5 kg 119.5 kg General appearance: PRESENT: no acute distress, obese, well-developed Head exam: PRESENT: atraumatic Ear exam: PRESENT: normal external ear exam Neck exam: ABSENT: carotid bruit, JVD, lymphadenopathy, thyromegaly Respiratory exam: PRESENT: crackles, decreased breath sounds, rhonchi, unlabored. ABSENT: accessory muscle use, tachypnea, wheezes, other Cardiovascular exam: PRESENT: RRR. ABSENT: diastolic murmur, rubs, systolic murmur Pulses: PRESENT: normal dorsalis pedis pul GI/Abdominal exam: PRESENT: normal bowel sounds, soft. ABSENT: distended, guarding, mass, organolmegaly, rebound, tenderness Extremities exam: PRESENT: +2 edema. ABSENT: joint swelling Musculoskeletal exam: PRESENT: ambulatory, full ROM Neurological exam: PRESENT: alert, awake, oriented to person, oriented to place , oriented to time, oriented to situation, CN II-XII grossly intact. ABSENT: motor sensory deficit Results Laboratory Results: 08/21/17 04:37 08/21/17 04:37 08/21/17 08/21/17 04:37 04:37 WBC 5.6 RBC 4.67 Hgb 13.0 Hct 40.0 MCV 86 MCH 27.9 MCHC 32.6 RDW 16.5 H Plt Count 194 Sodium 141.7 Potassium 3.8 Chloride 101 Carbon Dioxide 33 H Anion Gap 8 BUN 18 Creatinine 0.87 Est GFR ( Amer) > 60 Est GFR (Non-Af Amer) > 60 Glucose 115 H Calcium 8.7 Magnesium 2.2 08/15/17 08/15/17 08/18/17 16:47 22:10 04:11 Troponin I < 0.012 < 0.012 NT-Pro-B Natriuret Pep 403 Impressions: Chest X-Ray 08/15/17 09:41 IMPRESSION: Bandlike airspace disease right upper lobe adjacent to the minor fissure, atelectasis versus pneumonia Chest/Abdomen CTA 08/16/17 00:00 IMPRESSION: Minimal right upper lobe airspace disease worrisome for pneumonia. No CT angio evidence of acute pulmonary emboli. Assessment & Plan - Diagnosis (1) Acute respiratory failure Qualifiers: Respiratory failure complication: hypoxia Qualified Code(s): J96.01 - Acute respiratory failure with hypoxia Is this a current diagnosis for this admission?: Yes Plan: Secondary to CHF, PE r/o. Patient is much improved and hypoxemia resolved (2) Acute congestive heart failure Qualifiers: Heart failure type: diastolic Qualified Code(s): I50.31 - Acute diastolic ( congestive) heart failure Is this a current diagnosis for this admission?: Yes Plan: Patient denies any history of CHF. Echo done shows no significant finding. Patient likely has diastolic dysfunction precipitated by A. fib with RVR, respiratory failure and pneumonia. Echo shows left ventricular systolic function to be low normal with mild concentric left ventricular hypertrophy and CT angiogram reveals no evidence of acute pulmonary emboli with minimal right upper lobe airspace disease worrisome for pneumonia She has been diuresing very well on current regimen (3) Atrial fibrillation with rapid ventricular response Is this a current diagnosis for this admission?: Yes Plan: she received numerous doses of Cardizem and I change her Cardizem to 90 every 6 although she was on 180 twice daily at home. I also gave her a dose of digoxin and after starting antibiotics for a pneumonia patient's RVR did seem to resolve. She remains in atrial fibrillation which is chronic but she is now controlled. TSH is grossly normal as well as negative PE and insignificant echo She was placed on full strength Lovenox bridge as INR was therapeutic on admission at 1.1, currently 2.6. 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 This is likely the driving force for the A. fib with RVR and possibly be acute pulmonary edema. We will continue Invanz Day 6 and change to PO as indicated - Time Time Spent with patient: 15-24 minutes Medications reviewed and adjusted accordingly: Yes Anticipated discharge: Home Within: within 48 hours - Inpatient Certification Medical Necessity: Need for IV Antibiotics, Risk of Diagnosis Which Will Require Inpatient Eval/Care/Monitoring
[2017-08-21] MEDS: OXYCODONE-ACETAMINOPHEN 5-325 MG TABLET PO PRN (20:01)
[2017-08-21 20:07] LABS: APPEARANCE,URINE CLEAR; BILIRUBIN,URINE NEGATIVE (NEGATIVE); COLOR,URINE YELLOW; GLUCOSE, URINE NEGATIVE (NEGATIVE); KETONES,URINE NEGATIVE (NEGATIVE); LEUKOCYTE ESTERASE,URINE NEGATIVE (NEGATIVE); NITRITE,URINE NEGATIVE (NEGATIVE); PROTEIN,URINE NEGATIVE (NEGATIVE); URINE SPECIFIC GRAVITY 1.009; UROBILINOGEN,URINE NEGATIVE mg/dL (<2.0)
[2017-08-21] MEDS ORDERED: WARFARIN SODIUM 2.5 MG TABLET ONE (23:17)
[2017-08-21] MEDS: INSULIN GLARGINE,HUM.REC.ANLOG 1,000 UNIT/10 ML UNIT SUBCUT SCH (23:37)
[2017-08-21] MEDS: ATORVASTATIN CALCIUM 40 MG TABLET PO SCH (23:38)
[2017-08-22] MEDS ORDERED: WARFARIN SODIUM 5 MG TABLET PO ONE (00:15)
[2017-08-22] MEDS: OXYCODONE-ACETAMINOPHEN 5-325 MG TABLET PO PRN (01:42)
[2017-08-22] MEDS: ONDANSETRON HCL INJ/PF 4 MG/2 ML SDV IV PRN ×2 (01:42→13:40)
[2017-08-22] MEDS: DILTIAZEM HCL 90 MG TABLET PO SCH ×3 (05:53→19:38)
[2017-08-22] MEDS: METOPROLOL SUCCINATE 50 MG TAB.SR.24H PO SCH ×2 (08:26→21:34)
[2017-08-22] MEDS: INSULIN LISPRO 100 UNIT/ML 3 ML VIAL SUBCUT SCH ×4 (08:26→21:37)
[2017-08-22] MEDS: INSULIN LISPRO 100 UNIT/ML 3 ML VIAL SUBCUT PRN ×4 (08:26→21:37)
[2017-08-22] MEDS ORDERED: NORMAL SALINE 1000 ML 1,000 ML IV ONE (10:00)
[2017-08-22 10:28] LABS: PROTHROMBIN TIME 35.1 SEC (11.4-15.4)
[2017-08-22] MEDS: DOCUSATE SODIUM 100 MG CAPSULE PO SCH (10:58)
[2017-08-22] MEDS: ASPIRIN 81 MG TABLET, ENT COATED PO SCH (10:58)
[2017-08-22] MEDS: PREDNISONE 20 MG TABLET PO SCH (10:58)
[2017-08-22] MEDS: FAMOTIDINE 20 MG TABLET PO SCH ×2 (10:58→21:36)
[2017-08-22] MEDS: NYSTATIN/TRIAMCIN CREAM 15 GM TP SCH ×3 (11:04→19:38)
--- NOTE | 2017-08-22 11:16 | PDOC CONSULTATION ---
Consultation Consult Date: 08/22/17 Attending physician:: JOSE RANGEL Consult reason:: Hypotension, atrial fibrillation History of Present Illness Admission Date/PCP: 08/15/17 14:54 KIMBERLY FALL MD Patient complains of: Feeling tired and fatigued History of Present Illness: JOSH WALKER is a 66 year old female patient presented to the emergency room with complaints of difficulty breathing as well as shortness of breath associated with a cough with a whitish phlegm and pain over the lower part of the chest and abdomen. She also complained of swelling of her lower extremity. She denies any diarrhea fever or any palpitations. She was found to be in atrial fibrillation with a rapid ventricular response in the emergency room. She does give a prior history of atrial fib but denies known history of congestive heart failure. She is followed by Dr. Rogel and says she saw him just a few months ago. Patient was being treated on the floor with IV diuretics. However this morning was noted to have low blood pressure. Patient noted to be in atrial fibrillation. I was asked to help with management of patient with blood pressure and atrial fibrillation. Past Medical History Cardiac Medical History: Reports: Atrial Fibrillation, Hypertension Pulmonary Medical History: Reports: Asthma Neurological Medical History: Reports: Migraine Endocrine Medical History: Reports: Diabetes Mellitus Type 2 Musculoskeltal Medical History: Reports: Arthritis Skin Medical History: Reports: Psoriasis Psychiatric Medical History: Denies: Depression Past Surgical History Past Surgical History: Reports: Tubal Ligation Social History Information Source: Patient Lives with: Family Smoking Status: Never Smoker Frequency of Alcohol Use: None Hx Recreational Drug Use: No Drugs: None Hx Prescription Drug Abuse: No - Advance Directive Resuscitation Status: Full Code Family History Family History: Reviewed & Not Pertinent, Arthritis, CAD, CVA, DM, Hyperlipidemia, Hypertension, Malignancy, Thyroid Disfunction Parental Family History Reviewed: Yes Children Family History Reviewed: Yes Sibling(s) Family History Reviewed.: Yes Medication/Allergy Home Medications: Albuterol Sulfate [Ventolin 0.083% Neb 2.5 mg/3 mL Ampul] 3 ml NEB [id number] PRN Aspirin [Adult Low Dose Aspirin EC] 81 mg PO DAILY 08/15/17 Atorvastatin Calcium [Lipitor 40 mg Tablet] 40 mg PO QHS 08/15/17 Diltiazem HCl [Cardizem Cd 180 mg Capsule] 180 mg PO Q12 08/15/17 Furosemide [Lasix 40 mg Tablet] 40 mg PO BID 08/15/17 Insulin Aspart [Novolog Flexpen] 0 units SQ .PERSLIDINGSCALE 08/15/17 Insulin Degludec [Tresiba Flextouch U-100] 60 units SQ DAILY 08/15/17 Isosorbide Mononitrate [Imdur 30 mg Tablet.er] 30 mg PO DAILY 08/15/17 Metoprolol Succinate [Toprol XL 100 mg Tablet] 100 mg PO BID 08/15/17 Warfarin Sodium [Coumadin 5 mg Tablet] 5 mg PO QHS 08/15/17 Allergies/Adverse Reactions: cephalexin monohydrate [From Keflex] Allergy (Verified 08/15/17 09:15) levofloxacin [From Levaquin] Allergy (Verified 08/15/17 09:15) Review of Systems Review of Systems: Please see history of present illness and past medical history as wall. Constitutional: No fever or chills reported. Head : No recent chronic headaches, recent head injury. Eyes: No recent eye pain, diplopia, redness, discharge, acute visual changes. Ears: No recent chronic ear pain, acute hearing loss, ear discharge. Oral cavity: No recent ulcerations, bleeding, oral cavity discomfort. Neck: No recent acute neck pain reported. Hematologic: No recent easy bruising or bleeding or hematologic malignancy reported. Lymphatic: No recent lymphatic malignancy, chronic lymphadenopathy reported yet Cardiovascular system review: See history of present illness. Respiratory system review: No recent chronic cough, hemoptysis, blood clots in the lungs reported. Increasing pedal edema and shortness of breath on exertion Gastrointestinal system review: Negative for any recent acute or chronic abdominal pain, hematemesis, melena, recent change in bowel habits. Genitourinary system review: No recent acute or chronic hematuria, flank pain, UTI etc. reported. Skin system review: Negative for any recent abnormal bruising, no rash, no pruritus reported. Neurologic: No prior history of strokes, mini strokes, seizure disorder. Psychologic: No history of major psychosis or major depression reported. Musculoskeletal: Minor aches and pains reported. No acute joint swelling reported. Endocrine: No recent polyuria, polydipsia, recent heat or cold intolerance. Physical Exam Vital Signs: Temp Pulse Resp BP Pulse Ox 97.3 F 120 H 16 87/55 L 91 L 08/22/17 07:07 08/22/17 07:07 08/22/17 07:07 08/22/17 08:49 08/22/17 07:07 Intake & Output 08/21/17 08/22/17 08/23/17 06:59 06:59 06:59 Intake Total 2970 1308 Output Total 0 Balance 2970 1308 Weight 119.5 kg 120 kg Exam: GENERAL: well-nourished and in no acute distress. Alert and oriented x3 HEAD: Atraumatic, normocephalic. EYES: Pupils equal round and reactive to light, extraocular movements intact, sclera anicteric, conjunctiva are normal. ENT: TMs normal, nares patent, oropharynx clear without exudates. Moist mucous membranes. No oral ulcerations or bleeding gums noted NECK: supple without lymphadenopathy. Trachea is central. No cervical or axillary lymphadenopathy noted. Carotids are 2+, JVD WNL LUNGS: Respiration seems nonlabored, no significant accessory muscle action noted. Breath sounds clear to auscultation bilaterally and equal noted. No wheezes rales or rhonchi noted. No significant dullness noted on percussion. CHEST: Palpation of the chest wall shows no significant chest wall tenderness. No other significant abnormalities noted. 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 ABDOMEN: Soft, no significant tenderness appreciated, normoactive bowel sounds. No guarding, no rebound. No rigidity noted . No masses appreciated. EXTREMITIES: Pedal pulses are 1-2+, no calf tenderness noted. No clubbing or cyanosis. 1-2 + pedal edema noted NEUROLOGICAL: Focused neurological exam showed no significant neurologic deficit. Normal speech, no focal weakness appreciated. PSYCH: Normal mood, normal affect. Judgment and insight within normal limits. SKIN: No significant ecchymosis, skin is noted to be warm. Chronic dermatitis rash noted. MUSCULOSKELETAL EXAM: No significant acute joint swelling noted. Results Laboratory Results: 08/21/17 04:37 08/21/17 04:37 08/21/17 19:45 Urine Color YELLOW Urine Appearance CLEAR Urine pH 7.0 Ur Specific [place] 1.009 Urine Protein NEGATIVE Urine Glucose (UA) NEGATIVE Urine Ketones NEGATIVE Urine Blood NEGATIVE Urine Nitrite NEGATIVE Ur Leukocyte Esterase NEGATIVE Urine WBC (Auto) 2 Urine RBC (Auto) 1 08/15/17 08/15/17 08/18/17 16:47 22:10 04:11 Troponin I < 0.012 < 0.012 NT-Pro-B Natriuret Pep 403 EKG Comments: Twelve-lead EKG this morning shows A. fib with rapid ventricular response. Impressions: Chest X-Ray 08/15/17 09:41 IMPRESSION: Bandlike airspace disease right upper lobe adjacent to the minor fissure, atelectasis versus pneumonia Chest/Abdomen CTA 08/16/17 00:00 IMPRESSION: Minimal right upper lobe airspace disease worrisome for pneumonia. No CT angio evidence of acute pulmonary emboli. KUB X-Ray 08/21/17 00:00 IMPRESSION: Nonspecific intestinal bowel gas pattern. Round radiopaque density projected in the right upper quadrant as noted above which could conceivably represent a calcified gallstone. If clinically warranted ultrasound may be of value for further evaluation. Other findings as noted above Assessment & Plan - Diagnosis (1) Hypotension Qualifiers: Hypotension type: unspecified hypotension type Qualified Code(s): I95.9 - Hypotension, unspecified Is this a current diagnosis for this admission?: Yes (2) Atrial fibrillation with rapid ventricular response Is this a current diagnosis for this admission?: Yes (3) Congestive heart failure Is this a current diagnosis for this admission?: Yes (4) Dyslipidemia Is this a current diagnosis for this admission?: Yes (5) Obesity Qualifiers: Obesity type: due to excess calories Serious obesity comorbidity presence: with serious comorbidity Body mass index: BMI 39.0-39.9 Is this a current diagnosis for this admission?: Yes - Notes Notes: Hypotension: Possible over diuresis. Agree with her trying a fluid bolus. For rate control will consider adding digoxin because of hypotension. Consider adding spironolactone for diuretics. CHF: Acute on chronic CHF from diastolic dysfunction. Recommend rate control for atrial fibrillation, cautious use of diuretics. Atrial fibrillation with rapid ventricular response: Add digoxin for rate control. May consider chronic amiodarone therapy/multaq therapy. Continue chronic anticoagulation. Dyslipidemia: Continue statin therapy Obesity: Patient will benefit from weight loss. - Time Time Spent: 30 to 50 Minutes - CODE STATUS was discussed, patient remains full code. Surrogate decision-maker unchanged. Multiple medical problems were addressed. More than 50% of the time spent coordinating care, discussing management plans with involved caregivers. Management plans discussed with involved personnels. Medical decision making was of moderate to high complexity , patient's has multiple comorbidities. Medications reviewed and adjusted accordingly: Yes
--- NOTE | 2017-08-22 11:42 | PDOC PROGRESS REPORT ---
Subjective Progress Note for:: 08/25/17 Subjective:: Nursing contacted me this morning stating the patient's heart rate was 130s. I went to patient's room where patient was setting up out of bed stating that she felt nauseous. Spoke to Dr. Gonzalez in the hallway requested that Dr. Gonzalez see patient due to patient's tachycardia. Also discussed with Dr. Gonzalez the concern that patient has been over diuresed and this is contributing to patient' s low blood pressure and worsening of tachycardia. Requested that nurse take manual blood pressure and blood pressure was 110/72 with patient in upright position Reason For Visit: ACUTE CHF DECOMPENSATION,HYPERTENSIVE URGENCY, Physical Exam Vital Signs: Temp Pulse Resp BP Pulse Ox 98.3 F 138 H 18 90/65 L 90 L 08/22/17 11:13 08/22/17 11:13 08/22/17 11:13 08/22/17 11:13 08/22/17 11:13 Intake & Output 08/21/17 08/22/17 08/23/17 06:59 06:59 06:59 Intake Total 2970 1308 Output Total 0 Balance 2970 1308 Weight 119.5 kg 120 kg General appearance: PRESENT: mild distress, well-developed, well-nourished Head exam: PRESENT: atraumatic, normocephalic Eye exam: PRESENT: conjunctiva pink, EOMI Ear exam: PRESENT: normal external ear exam Mouth exam: PRESENT: moist, tongue midline Neck exam: ABSENT: carotid bruit, JVD, lymphadenopathy, thyromegaly Respiratory exam: PRESENT: clear to auscultation abner. ABSENT: rales, rhonchi, wheezes Cardiovascular exam: PRESENT: irregular rhythm, tachycardia Pulses: PRESENT: normal dorsalis pedis pul Vascular exam: PRESENT: normal capillary refill GI/Abdominal exam: PRESENT: normal bowel sounds, soft. ABSENT: distended, guarding, mass, organolmegaly, rebound, tenderness Rectal exam: PRESENT: deferred Extremities exam: PRESENT: full ROM. ABSENT: calf tenderness, clubbing, pedal edema Neurological exam: PRESENT: alert, awake, oriented to person, oriented to place , oriented to time, oriented to situation, CN II-XII grossly intact. ABSENT: motor sensory deficit Psychiatric exam: PRESENT: appropriate affect, normal mood. ABSENT: homicidal ideation, suicidal ideation Skin exam: PRESENT: dry, intact, warm. ABSENT: cyanosis, rash Results Laboratory Results: 08/21/17 04:37 08/21/17 04:37 08/21/17 19:45 Urine Color YELLOW Urine Appearance CLEAR Urine pH 7.0 Ur Specific [place] 1.009 Urine Protein NEGATIVE Urine Glucose (UA) NEGATIVE Urine Ketones NEGATIVE Urine Blood NEGATIVE Urine Nitrite NEGATIVE Ur Leukocyte Esterase NEGATIVE Urine WBC (Auto) 2 Urine RBC (Auto) 1 08/15/17 08/15/17 08/18/17 16:47 22:10 04:11 Troponin I < 0.012 < 0.012 NT-Pro-B Natriuret Pep 403 Impressions: Chest X-Ray 08/15/17 09:41 IMPRESSION: Bandlike airspace disease right upper lobe adjacent to the minor fissure, atelectasis versus pneumonia Chest/Abdomen CTA 08/16/17 00:00 IMPRESSION: Minimal right upper lobe airspace disease worrisome for pneumonia. No CT angio evidence of acute pulmonary emboli. KUB X-Ray 08/21/17 00:00 IMPRESSION: Nonspecific intestinal bowel gas pattern. Round radiopaque density projected in the right upper quadrant as noted above which could conceivably represent a calcified gallstone. If clinically warranted ultrasound may be of value for further evaluation. Other findings as noted above Assessment & Plan - Diagnosis (1) Acute hypoxemic respiratory failure Is this a current diagnosis for this admission?: Yes Plan: Compared to acute on chronic diastolic congestive heart failure and A. fib with RVR: Resolving. (2) Acute congestive heart failure Qualifiers: Heart failure type: diastolic Qualified Code(s): I50.31 - Acute diastolic ( congestive) heart failure Is this a current diagnosis for this admission?: Yes Plan: Resolved. Lasix has been discontinued. Patient's produced approximately 5 L of urine since been admitted. Currently feel that patient is volume depleted and therefore will give normal saline bolus. (3) Atrial fibrillation with rapid ventricular response Is this a current diagnosis for this admission?: Yes Plan: Patient on metoprolol and diltiazem. Cardiology has been asked to see patient and they have added digoxin (4) Hypotension Qualifiers: Hypotension type: unspecified hypotension type Qualified Code(s): I95.9 - Hypotension, unspecified Is this a current diagnosis for this admission?: Yes Plan: Pt currently receiving IV fluids for volume expansion. (5) Pneumonia Qualifiers: Pneumonia type: due to unspecified organism Laterality: right Lung location: upper lobe of lung Qualified Code(s): J18.1 - Lobar pneumonia, unspecified organism Is this a current diagnosis for this admission?: Yes Plan: Repeat chest x-ray. If no identifiable infiltrate is seen will discontinue antibiotics. (6) Diabetes Qualifiers: Diabetes mellitus type: type 2 Diabetes mellitus superintendent terminal insulin use: unspecified shelter insulin use status Diabetes mellitus complication status : with unspecified complications Qualified Code(s): E11.8 - Type 2 diabetes mellitus with unspecified complications Is this a current diagnosis for this admission?: Yes Plan: Diabetes Mellitus Type 2: SSI. (7) Hypertension Qualifiers: Is this a current diagnosis for this admission?: Yes Plan: Will continue to monitor. (8) Obesity Qualifiers: Obesity type: due to excess calories Serious obesity comorbidity presence: with serious comorbidity Body mass index: BMI 39.0-39.9 Is this a current diagnosis for this admission?: Yes Plan: Encourage dietary changes. (9) Volume depletion Is this a current diagnosis for this admission?: Yes Plan: Will give NS bolus X 1. - Time Time Spent with patient: 25-34 minutes
[2017-08-22] MEDS ORDERED: DIGOXIN INJ 0.5 MG/2 ML AMPULE IV ONE (13:00)
[2017-08-22] MEDS: ERTAPENEM SODIUM 1 GM in NORMAL SALINE 100 ML IV SCH (13:40)
--- NOTE | 2017-08-22 14:45 | RADIOLOGY REPORT (SQ) ---
EXAM DESCRIPTION: CHEST SINGLE VIEW COMPLETED DATE/TIME: 08/22/2017 2:14 pm REASON FOR STUDY: pneumonia COMPARISON: 08/15/2017 EXAM PARAMETERS: NUMBER OF VIEWS: One view. TECHNIQUE: Single frontal radiographic view of the chest acquired. RADIATION DOSE: NA LIMITATIONS: None. FINDINGS: LUNGS AND PLEURA: The previously described minimal airspace disease in the right upper lob e has resolved. Visualized lung rico are currently clear. No pleural effusions are identified. MEDIASTINUM AND HILAR STRUCTURES: No masses. Contour normal. HEART AND VASCULAR STRUCTURES: Cardiac silhouette remains enlarged and is unchanged in configuration BONES: No acute findings. HARDWARE: None in the chest. OTHER: No other significant finding. IMPRESSION: Interval resolution of the previously described minimal airspace disease in the right up per lobe. Visualized lung rico are currently clear. Cardiomegaly. Other findings as noted above TECHNICAL DOCUMENTATION: JOB ID: [id number] [employer]- All Rights Reserved Reading location - IP/workstation name: [email or web address]
[2017-08-22] MEDS ORDERED: NORMAL SALINE 1000 ML 250 ML IV ONE (16:45)
[2017-08-22] MEDS: ACETAMINOPHEN 325 MG TABLET PO PRN (19:58)
--- NOTE | 2017-08-22 21:22 | EKG REPORT ---
SEVERITY:- ABNORMAL ECG - ATRIAL FIBRILLATION BORDERLINE LEFT AXIS DEVIATION BORDERLINE PROLONGED QT INTERVAL : Confirmed by: Nella Gonzalez 22-Aug-2017 21:21:45
[2017-08-22] MEDS: ATORVASTATIN CALCIUM 40 MG TABLET PO SCH (21:35)
[2017-08-22] MEDS: INSULIN GLARGINE,HUM.REC.ANLOG 1,000 UNIT/10 ML UNIT SUBCUT SCH (21:37)
[2017-08-22] MEDS ORDERED: WARFARIN SODIUM 3 MG TABLET PO SCH (22:00)
[2017-08-22] MEDS ORDERED: WARFARIN SODIUM 5 MG TABLET PO SCH (22:00)
[2017-08-23] MEDS: DILTIAZEM HCL 90 MG TABLET PO SCH ×2 (01:09→05:21)
[2017-08-23] MEDS: ACETAMINOPHEN 325 MG TABLET PO PRN ×2 (01:10→05:19)
[2017-08-23 05:50] VITALS: BP 99/55
[2017-08-23] MEDS ORDERED: NORMAL SALINE 500 ML IV ONE (06:00)
[2017-08-23 06:52] LABS: APPEARANCE,URINE CLOUDY; BILIRUBIN,URINE NEGATIVE (NEGATIVE); COLOR,URINE AMBER; GLUCOSE, URINE 150 mg/dL (NEGATIVE); KETONES,URINE NEGATIVE (NEGATIVE); LEUKOCYTE ESTERASE,URINE MODERATE (NEGATIVE); NITRITE,URINE NEGATIVE (NEGATIVE); PROTEIN,URINE 30 mg/dL (NEGATIVE); URINE SPECIFIC GRAVITY 1.027
[2017-08-23 07:17] LABS: HEMATOCRIT 26.3 % (36.0-47.0); MEAN CORPUSCULAR HEMOGLOBIN 27.5 pg (27.0-33.4); MEAN CORPUSCULAR HGB CONC 31.8 g/dL (32.0-36.0); MEAN CORPUSCULAR VOLUME 87 fl (80-97); PLATELET COUNT 284 10^3/uL (150-450); RED BLOOD COUNT 3.04 10^6/uL (3.72-5.28)
[2017-08-23] MEDS: INSULIN LISPRO 100 UNIT/ML 3 ML VIAL SUBCUT PRN (07:21)
[2017-08-23] MEDS: INSULIN LISPRO 100 UNIT/ML 3 ML VIAL SUBCUT SCH (07:21)
[2017-08-23 07:24] LABS: ANION GAP 18 (5-19); BLOOD UREA NITROGEN 53 mg/dL (7-20); CALCIUM 7.5 mg/dL (8.4-10.2); CARBON DIOXIDE 20 mmol/L (22-30); CHLORIDE 95 mmol/L (98-107); GLUCOSE 184 mg/dL (75-110); POTASSIUM 5.4 mmol/L (3.6-5.0); SODIUM 133.2 mmol/L (137-145)
[2017-08-23 08:11] LABS: WHITE BLOOD COUNT 32.5 10^3/uL (4.0-10.5)
[2017-08-23 08:12] LABS: HEMOGLOBIN 8.4 g/dL (12.0-15.5)
[2017-08-23] MEDS ORDERED: NORMAL SALINE 1000 ML 1,000 ML IV ONE (09:50)
[2017-08-23] MEDS ORDERED: RINGERS SOLUTION,LACTATED 1,000 ML IV PRN ×2 (09:52→10:02)
[2017-08-23] MEDS: ASPIRIN 81 MG TABLET, ENT COATED PO SCH (09:54)
[2017-08-23] MEDS: PREDNISONE 20 MG TABLET PO SCH (09:55)
[2017-08-23] MEDS: FAMOTIDINE 20 MG TABLET PO SCH (09:55)
[2017-08-23] MEDS: METOPROLOL SUCCINATE 50 MG TAB.SR.24H PO SCH (09:56)
[2017-08-23] MEDS: DOCUSATE SODIUM 100 MG CAPSULE PO SCH (09:56)
[2017-08-23] MEDS: NYSTATIN/TRIAMCIN CREAM 15 GM TP SCH (09:56)
[2017-08-23] MEDS ORDERED: DIGOXIN 0.125 MG TABLET PO SCH (10:00)
[2017-08-23 10:10] LABS: HEMATOCRIT 23.9 % (36.0-47.0); MEAN CORPUSCULAR HEMOGLOBIN 27.7 pg (27.0-33.4); MEAN CORPUSCULAR HGB CONC 31.9 g/dL (32.0-36.0); MEAN CORPUSCULAR VOLUME 87 fl (80-97); PLATELET COUNT 351 10^3/uL (150-450); RED BLOOD COUNT 2.75 10^6/uL (3.72-5.28); RED CELL DISTRIBUTION WIDTH 16.9 % (11.5-14.0)
--- NOTE | 2017-08-23 10:22 | PDOC PROGRESS REPORT ---
Subjective Progress Note for:: 08/23/17 Subjective:: Overnight patient was given boluses of IV fluid. Nursing reported that patient had only had out 160 cc overnight. [place] is in place. Patient states that she does not feel well. Nursing reports that patient's hemoglobin went from 13- 8.4. Had recommended obtaining a CT of abdomen however patient stated that she did not want to do that at this time. Reason For Visit: ACUTE CHF DECOMPENSATION,HYPERTENSIVE URGENCY, Physical Exam Vital Signs: Temp Pulse Resp BP Pulse Ox 97.5 F 77 20 99/55 L 96 08/23/17 04:17 08/23/17 10:05 08/23/17 10:05 08/23/17 05:46 08/23/17 10:05 Intake & Output 08/22/17 08/23/17 08/24/17 06:59 06:59 06:59 Intake Total 1308 1850 Output Total 160 Balance 1308 1690 Weight 120 kg 122.5 kg General appearance: PRESENT: mild distress, well-developed, well-nourished Head exam: PRESENT: atraumatic, normocephalic Eye exam: PRESENT: conjunctiva pink, EOMI. ABSENT: scleral icterus Ear exam: PRESENT: normal external ear exam Mouth exam: PRESENT: moist, tongue midline Neck exam: ABSENT: carotid bruit, JVD, lymphadenopathy, thyromegaly Respiratory exam: PRESENT: clear to auscultation abner - anteriorly, diminished at bases.. ABSENT: rales, rhonchi, wheezes Cardiovascular exam: PRESENT: RRR. ABSENT: diastolic murmur, rubs, systolic murmur Pulses: PRESENT: normal dorsalis pedis pul Vascular exam: PRESENT: normal capillary refill GI/Abdominal exam: PRESENT: normal bowel sounds, soft. ABSENT: distended, guarding, mass, organolmegaly, rebound, tenderness Rectal exam: PRESENT: deferred Extremities exam: PRESENT: full ROM. ABSENT: calf tenderness, clubbing, pedal edema Musculoskeletal exam: PRESENT: full ROM Neurological exam: PRESENT: alert, awake, oriented to person, oriented to place , oriented to time, oriented to situation, CN II-XII grossly intact. ABSENT: motor sensory deficit Psychiatric exam: PRESENT: appropriate affect, normal mood. ABSENT: homicidal ideation, suicidal ideation Skin exam: PRESENT: dry, intact, warm. ABSENT: cyanosis, rash Results Laboratory Results: 08/23/17 06:29 08/23/17 08/23/17 08/23/17 06:15 06:29 06:29 WBC 32.5 H* D RBC 3.04 L Hgb 8.4 L D Hct 26.3 L MCV 87 MCH 27.5 MCHC 31.8 L RDW 17.0 H Plt Count 284 Sodium 133.2 L Potassium 5.4 H Chloride 95 L Carbon Dioxide 20 L Anion Gap 18 BUN 53 H Creatinine 3.44 H Est GFR ( Amer) 16 L Est GFR (Non-Af Amer) 13 L Glucose 184 H Calcium 7.5 L Urine Color SAHIL Urine Appearance CLOUDY Urine pH 5.0 Ur Specific [place] 1.027 Urine Protein 30 H Urine Glucose (UA) 150 H Urine Ketones NEGATIVE Urine Blood SMALL H Urine Nitrite NEGATIVE Ur Leukocyte Esterase MODERATE H Urine WBC (Auto) 4 Urine RBC (Auto) 10 08/15/17 08/15/17 08/18/17 16:47 22:10 04:11 Troponin I < 0.012 < 0.012 NT-Pro-B Natriuret Pep 403 Impressions: Chest/Abdomen CTA 08/16/17 00:00 IMPRESSION: Minimal right upper lobe airspace disease worrisome for pneumonia. No CT angio evidence of acute pulmonary emboli. KUB X-Ray 08/21/17 00:00 IMPRESSION: Nonspecific intestinal bowel gas pattern. Round radiopaque density projected in the right upper quadrant as noted above which could conceivably represent a calcified gallstone. If clinically warranted ultrasound may be of value for further evaluation. Other findings as noted above Chest X-Ray 08/22/17 00:00 IMPRESSION: Interval resolution of the previously described minimal airspace disease in the right upper lobe. Visualized lung rico are currently clear. Cardiomegaly. Other findings as noted above Assessment & Plan - Diagnosis (1) Acute renal failure Is this a current diagnosis for this admission?: Yes Plan: Most likely prerenal secondary to diuresis: Patient given additional normal saline bolus and placed on maintenance fluid. Will consult renal. Will check UA. Will renal ultrasound (2) Dehydration Is this a current diagnosis for this admission?: Yes Plan: We will give patient another liter bolus in place patient on maintenance fluids. Patient is dehydrated secondary to diuresis. (3) Acute hypoxemic respiratory failure Is this a current diagnosis for this admission?: Yes Plan: Secondary to acute on chronic diastolic congestive heart failure and A. fib with RVR: Resolved. (4) Acute congestive heart failure Qualifiers: Heart failure type: diastolic Qualified Code(s): I50.31 - Acute diastolic ( congestive) heart failure Is this a current diagnosis for this admission?: Yes Plan: Resolved. (5) Atrial fibrillation with rapid ventricular response Is this a current diagnosis for this admission?: Yes Plan: Patient's diltiazem was discontinued. Patient has metoprolol and dig written for. (6) Hypotension Qualifiers: Hypotension type: unspecified hypotension type Qualified Code(s): I95.9 - Hypotension, unspecified Is this a current diagnosis for this admission?: Yes Plan: Secondary to diuresis: We will continue with IV fluids. Patient given additional bolus of IV fluid. (7) Pneumonia Qualifiers: Pneumonia type: due to unspecified organism Laterality: right Lung location: upper lobe of lung Qualified Code(s): J18.1 - Lobar pneumonia, unspecified organism Is this a current diagnosis for this admission?: Yes Plan: Ruled out no evidence of pneumonia. Will discontinue ertapenem. (8) Diabetes Qualifiers: Diabetes mellitus type: type 2 Diabetes mellitus complication status: with unspecified complications Diabetes mellitus lobsterman insulin use: unspecified residential insulin use status Qualified Code(s): E11.8 - Type 2 diabetes mellitus with unspecified complications Is this a current diagnosis for this admission?: Yes Plan: Diabetes Mellitus Type 2: SSI. (9) Hypertension Qualifiers: Is this a current diagnosis for this admission?: Yes Plan: Will continue to monitor. (10) Obesity Qualifiers: Obesity type: due to excess calories Serious obesity comorbidity presence: with serious comorbidity Body mass index: BMI 39.0-39.9 Is this a current diagnosis for this admission?: Yes Plan: Encourage dietary changes. (11) Volume depletion Is this a current diagnosis for this admission?: Yes Plan: Give additional bolus of IV fluids and place patient on maintenance fluids. (12) Anemia Is this a current diagnosis for this admission?: Yes Plan: Is likely secondary to abdominal hematoma: We will check CT of abdomen. Patient 's INR yesterday was 3.3. Coumadin has been discontinued. INR pending. Will monitor patient's H&H closely. - Time Time Spent with patient: 25-34 minutes
[2017-08-23 10:24] LABS: HEMOGLOBIN 7.6 g/dL (12.0-15.5)
[2017-08-23 10:43] LABS: WHITE BLOOD COUNT 39.2 10^3/uL (4.0-10.5)
--- NOTE | 2017-08-23 11:08 | RADIOLOGY REPORT (SQ) ---
EXAM DESCRIPTION: CT ABD/PELVIS NO ORAL OR IV COMPLETED DATE/TIME: 08/23/2017 10:51 am REASON FOR STUDY: abd pain COMPARISON: 12/10/2015. TECHNIQUE: CT scan of the abdomen and pelvis performed without intravenous or oral contrast. Images reviewed with lung, soft tissue, and bone windows. Reconstructed coronal and sagittal MPR images revi ewed. All images stored on PACS. All CT scanners at this facility use dose modulation, iterative reconstruction, and/or weight based d osing when appropriate to reduce radiation dose to as low as reasonably achievable (ALARA). [facility]: Dose Right [facility]: CareDose [facility]: Dose Right [facility]: Teradose 4D [facility]: FastDue RADIATION DOSE: CT Rad equipment meets quality standard of care and radiation dose reduction techniq ues were employed. CTDIvol: 29.6 mGy. DLP: 1669 mGy-cm.mGy. LIMITATIONS: None. FINDINGS: LOWER CHEST: No significant findings. No nodules or infiltrates. NON-CONTRASTED LIVER, SPLEEN, ADRENALS: Evaluation limited by lack of IV contrast. No identified sign ificant masses. PANCREAS: No masses. No peripancreatic inflammatory changes. GALLBLADDER: Gallstones. No inflammatory changes to suggest cholecystitis. RIGHT KIDNEY AND URETER: No suspicious masses. Assessment limited by lack of IV contrast. No signif icant calcifications. No hydronephrosis or hydroureter. LEFT KIDNEY AND URETER: No suspicious masses. Assessment limited by lack of IV contrast. No signifi cant calcifications. No hydronephrosis or hydroureter. AORTA AND RETROPERITONEUM: No aneurysm. No retroperitoneal masses or adenopathy. BOWEL AND PERITONEAL CAVITY: No obvious masses or inflammatory changes. No free fluid. APPENDIX: Not visualized. PELVIS, BLADDER, AND ABDOMINAL WALL:There is a large heterogenous density in the left rectus muscle c onsistent with a very large rectus sheath hematoma. Maximum AP measurement 11 cm, maximum transverse measurement 19 cm, and maximum craniocaudal measurement 27 cm. This extends from above the umbilicu s inferiorly to the pubic symphysis. No free fluid in the pelvis. Catheter in the bladder. BONES: No significant findings. OTHER: No other significant finding. IMPRESSION: 1. VERY LARGE RECTUS SHEATH HEMATOMA ON THE LEFT SIDE WITH MEASUREMENTS ABOVE. 2. GALLSTONES. 3. NO OTHER SIGNIFICANT OR ACUTE PROCESS IN THE ABDOMEN OR PELVIS. COMMENT: Quality ID # [id number]: Final reports with documentation of one or more dose reduction techniques (e.g., Automated exposure control, adjustment of the mA and/or kV according to patient size, use of iterative reconstruction technique) TECHNICAL DOCUMENTATION: JOB ID: [id number] [employer]- All Rights Reserved Reading location - IP/workstation name: [email or web address] [id number]
[2017-08-23] MEDS ORDERED: NORMAL SALINE 250 ML IV PRN ×3 (11:24→11:27)
--- NOTE | 2017-08-23 11:54 | RADIOLOGY REPORT (SQ) ---
EXAM DESCRIPTION: U/S RETROPERITON (RENAL/AORTA) COMPLETED DATE/TIME: 08/23/2017 11:35 am REASON FOR STUDY: acute renal failure COMPARISON: CT dated 08/23/2017. TECHNIQUE: Dynamic and static grayscale images acquired of the kidneys and bladder and recorded on P ACS. Additional selected color Doppler and spectral images recorded. LIMITATIONS: None. FINDINGS: RIGHT KIDNEY: Small, measuring 6.8 cm. Normal echogenicity. No solid or suspicious ma sses. No hydronephrosis. No calcifications. LEFT KIDNEY: Complex mass in the abdominal wall which obscures visualization of the kidney. BLADDER: Empty. Catheter in place. OTHER FINDINGS: No other significant finding. IMPRESSION: ATROPHIC RIGHT KIDNEY. NO HYDRONEPHROSIS. UNABLE TO VISUALIZE THE LEFT KIDNEY DUE TO T HE LARGE RECTUS SHEATH HEMATOMA. TECHNICAL DOCUMENTATION: JOB ID: [id number] [employer]- All Rights Reserved Reading location - IP/workstation name: [email or web address]
[2017-08-23] MEDS ORDERED: DEXTROSE 50%-WATER 25 GM/50 ML DISP.SYRIN IV ONE (13:24)
[2017-08-23] MEDS ORDERED: SODIUM BICARBONATE 8.4% INJ 50 MEQ/50 ML DISP.SYRIN ONE ×4 (13:24→15:21)
[2017-08-23] MEDS ORDERED: EPINEPHRINE INJ/PF 1 MG/1 ML AMPULE ONE (13:41)
[2017-08-23] MEDS ORDERED: EPINEPHRINE INJ 1 MG/10 ML DISP.SYRIN ONE (15:21)
--- NOTE | 2017-08-23 18:17 | Progress Note ---
Provider Note Provider Note: Rapid response was called after patient was found vomiting in bed. Patient was found to be having agonal breathing and therefore patient was bagged. Patient was also being suctioned at time of code. Patient continued to vomit up greenish debris with food particles i.e. green beans. Patient also had vomited coming from nose as well. CPR will was performed for approximately 30 minutes total. Patient was intubated on third attempt successfully. Patient did obtain a pulse but was lost. Spoke with family on 2 visits about the seriousness of patient's clinical condition. The decision was to encoded due to patient not demonstrating any evidence of recovery.
--- NOTE | 2017-08-23 18:34 | PDOC DISCHARGE SUMMARY ---
General - Admit/Disc Date/PCP Admission Date/Primary Care Provider: 08/15/17 14:54 KIMBERLY FALL MD Discharge Date: 08/23/17 - Discharge Diagnosis (1) Aspiration into airway Is this a current diagnosis for this admission?: Yes Summary: Rapid response was called and patient was vomiting during rapid response. Patient became apneic and had no pulse. CPR was initiated. Patient continued to vomit profusely throughout code. Patient was intubated on third attempt however was not able to gain pulse. (2) Acute respiratory failure Is this a current diagnosis for this admission?: Yes Summary: Secondary to aspiration pneumonia to airway (3) Acute renal failure Is this a current diagnosis for this admission?: Yes Summary: Secondary to dehydration and hypoperfusion: Patient was given IV fluids for volume expansion due to patient being dehydrated. Patient had been placed on Lasix earlier during hospital stay. Patient's renal function had worsened due to volume depletion. Patient was also noted to have A. fib with RVR which also affected renal perfusion as well. (4) Dehydration Is this a current diagnosis for this admission?: Yes Summary: Patient was given IV fluids for resuscitation due to diuresis. (5) Acute hypoxemic respiratory failure Is this a current diagnosis for this admission?: Yes Summary: Secondary to acute on chronic diastolic congestive heart failure: Resolved. Patient initially had been placed on Lasix for diuresis. Patient's Lasix was discontinued due to patient being dehydrated. Patient was given IV fluids for volume expansion. (6) Acute congestive heart failure Is this a current diagnosis for this admission?: Yes Summary: Earlier during patient's admission patient was placed on Lasix however this was discontinued due to patient becoming dehydrated. (7) Atrial fibrillation with rapid ventricular response Is this a current diagnosis for this admission?: Yes Summary: Cardiology was consulted due to patient having A. fib with RVR. This is most likely what caused patient's congestive heart failure. Patient's medications were adjusted for better heart rate control. (8) Hypotension Is this a current diagnosis for this admission?: Yes Summary: Initially secondary to dehydration however patient on next following morning was found to have a large abdominal hematoma. Patient was given IV fluids and blood pressures were maintained around 90-107 systolic (9) Pneumonia Is this a current diagnosis for this admission?: Yes Summary: Patient had repeat chest x-ray that did not demonstrate evidence of pneumonia therefore ertapenem was discontinued. (10) Diabetes Is this a current diagnosis for this admission?: Yes Summary: Patient was placed on sliding scale insulin. (11) Hypertension Is this a current diagnosis for this admission?: Yes Summary: Hypertensive medications were discontinued. Patient did receive medication to help with heart rate control due to A. fib with RVR (12) Obesity Is this a current diagnosis for this admission?: Yes (13) Volume depletion Is this a current diagnosis for this admission?: Yes Summary: Secondary to diuresis complicated by large abdominal hematoma (14) Anemia Is this a current diagnosis for this admission?: Yes Summary: Secondary to large abdominal hematoma. - Additional Information Resuscitation Status: Full Code Home Medications: Albuterol Sulfate [Ventolin 0.083% Neb 2.5 mg/3 mL Ampul] 3 ml NEB [id number] PRN Aspirin [Adult Low Dose Aspirin EC] 81 mg PO DAILY 08/15/17 Atorvastatin Calcium [Lipitor 40 mg Tablet] 40 mg PO QHS 08/15/17 Diltiazem HCl [Cardizem Cd 180 mg Capsule] 180 mg PO Q12 08/15/17 Furosemide [Lasix 40 mg Tablet] 40 mg PO BID 08/15/17 Insulin Aspart [Novolog Flexpen] 0 units SQ .PERSLIDINGSCALE 08/15/17 Insulin Degludec [Tresiba Flextouch U-100] 60 units SQ DAILY 08/15/17 Isosorbide Mononitrate [Imdur 30 mg Tablet.er] 30 mg PO DAILY 08/15/17 Metoprolol Succinate [Toprol XL 100 mg Tablet] 100 mg PO BID 08/15/17 Warfarin Sodium [Coumadin 5 mg Tablet] 5 mg PO QHS 08/15/17 History of Present Illness Patient complains of: Shortness of breath and found to be in A. fib with RVR History of Present Illness: JOSH WALKER is a 66 year old female presented to the hospital with complaint of shortness of breath and found to be in A. fib with RVR. On diltiazem and heart rate appeared to have improved. Patient was seen by cardiology who made adjustments to patient's medications due to heart rate worsening. Patient in the meantime had been placed on Lasix to help with congestive heart failure. Patient was placed on Coumadin due to patient having A. fib. Due to patient needing DVT prophylaxis patient has also been written for heparin injections. Patient's heparin injections were discontinued once patient's INR was therapeutic however patient had complained of abdominal pain and CT demonstrated that patient had a large abdominal hematoma. Patient's hemoglobin has also trended down as well. Surgery consult was placed for internal line and to follow patient due to large hematoma. Patient had also been ordered for 2 units of FFP as well as 2 units of packed RBCs. Patient was also ordered for IVF bolus and maintenance fluids. Patient also was found to have acute renal injury with creatinine of 3.44 and therefore renal had been consulted. Patient also been ordered for a renal ultrasound as well. Rapid response was called due to patient having difficulty breathing. Patient was found vomiting food debris from mouth and nose. Patient was suctioned aggressively and patient continued to vomit profusely. Chest compressions were initiated once patient was found to not have pulse. Pulse was obtained with medication and CPR and therefore patient was intubated. Patient was successfully intubated on third attempt. Pulse was lost again and after coding patient for 30 minutes code was discontinued. During this time I spoke with patient's family twice to keep them informed of what was happening with their loved one. Patient was pronounced at 1347 on 08/23/2017. Hospital Course Hospital Course: JOSH WALKER is a 66 year old female presented to the hospital with complaint of shortness of breath and found to be in A. fib with RVR. On diltiazem and heart rate appeared to have improved. Patient was seen by cardiology who made adjustments to patient's medications due to heart rate worsening. Patient in the meantime had been placed on Lasix to help with congestive heart failure. Patient was placed on Coumadin due to patient having A. fib. Due to patient needing DVT prophylaxis patient has also been written for heparin injections. Patient's heparin injections were discontinued once patient's INR was therapeutic however patient had complained of abdominal pain and CT demonstrated that patient had a large abdominal hematoma. Patient's hemoglobin has also trended down as well. Surgery consult was placed for internal line and to follow patient due to large hematoma. Patient had also been ordered for 2 units of FFP as well as 2 units of packed RBCs. Patient was also ordered for IVF bolus and maintenance fluids. Patient also was found to have acute renal injury with creatinine of 3.44 and therefore renal had been consulted. Patient also been ordered for a renal ultrasound as well. Rapid response was called due to patient having difficulty breathing. Patient was found vomiting food debris from mouth and nose. Patient was suctioned aggressively and patient continued to vomit profusely. Chest compressions were initiated once patient was found to not have pulse. Pulse was obtained with medication and CPR and therefore patient was intubated. Patient was successfully intubated on third attempt. Pulse was lost again and after coding patient for 30 minutes code was discontinued. During this time I spoke with patient's family twice to keep them informed of what was happening with their loved one. Patient was pronounced at 1347 on 08/23/2017. Physical Exam Vital Signs: Temp Pulse Resp BP Pulse Ox 97.5 F 77 20 99/55 L 96 08/23/17 04:17 08/23/17 10:05 08/23/17 10:05 08/23/17 05:46 08/23/17 10:05 Intake & Output 08/22/17 08/23/17 08/24/17 06:59 06:59 06:59 Intake Total 1308 1850 Output Total 160 Balance 1308 1690 Weight 120 kg 122.5 kg Exam: Summary Results Laboratory Results: 08/23/17 09:54 08/23/17 06:29 08/23/17 08/23/17 08/23/17 06:15 06:29 06:29 WBC 32.5 H* D RBC 3.04 L Hgb 8.4 L D Hct 26.3 L MCV 87 MCH 27.5 MCHC 31.8 L RDW 17.0 H Plt Count 284 Sodium 133.2 L Potassium 5.4 H Chloride 95 L Carbon Dioxide 20 L Anion Gap 18 BUN 53 H Creatinine 3.44 H Est GFR ( Amer) 16 L Est GFR (Non-Af Amer) 13 L Glucose 184 H Calcium 7.5 L Urine Color SAHIL Urine Appearance CLOUDY Urine pH 5.0 Ur Specific [place] 1.027 Urine Protein 30 H Urine Glucose (UA) 150 H Urine Ketones NEGATIVE Urine Blood SMALL H Urine Nitrite NEGATIVE Ur Leukocyte Esterase MODERATE H Urine WBC (Auto) 4 Urine RBC (Auto) 10 08/23/17 09:54 WBC 39.2 H* RBC 2.75 L Hgb 7.6 L Hct 23.9 L MCV 87 MCH 27.7 MCHC 31.9 L RDW 16.9 H Plt Count 351 Sodium Potassium Chloride Carbon Dioxide Anion Gap BUN Creatinine Est GFR ( Amer) Est GFR (Non-Af Amer) Glucose Calcium Urine Color Urine Appearance Urine pH Ur Specific [place] Urine Protein Urine Glucose (UA) Urine Ketones Urine Blood Urine Nitrite Ur Leukocyte Esterase Urine WBC (Auto) Urine RBC (Auto) 08/15/17 08/15/17 08/18/17 16:47 22:10 04:11 Troponin I < 0.012 < 0.012 NT-Pro-B Natriuret Pep 403 Impressions: Chest/Abdomen CTA 08/16/17 00:00 IMPRESSION: Minimal right upper lobe airspace disease worrisome for pneumonia. No CT angio evidence of acute pulmonary emboli. KUB X-Ray 08/21/17 00:00 IMPRESSION: Nonspecific intestinal bowel gas pattern. Round radiopaque density projected in the right upper quadrant as noted above which could conceivably represent a calcified gallstone. If clinically warranted ultrasound may be of value for further evaluation. Other findings as noted above Chest X-Ray 08/22/17 00:00 IMPRESSION: Interval resolution of the previously described minimal airspace disease in the right upper lobe. Visualized lung rico are currently clear. Cardiomegaly. Other findings as noted above Abdomen/Pelvis CT 08/23/17 00:00 IMPRESSION: 1. VERY LARGE RECTUS SHEATH HEMATOMA ON THE LEFT SIDE WITH MEASUREMENTS ABOVE. 2. GALLSTONES. 3. NO OTHER SIGNIFICANT OR ACUTE PROCESS IN THE ABDOMEN OR PELVIS. Renal Ultrasound 08/23/17 00:00 IMPRESSION: ATROPHIC RIGHT KIDNEY. NO HYDRONEPHROSIS. UNABLE TO VISUALIZE THE LEFT KIDNEY DUE TO THE LARGE RECTUS SHEATH HEMATOMA. Qualifiers - * PATEINT BEING DISCHARGED WITH ANY OF THE FOLLOWING DIAGNOSIS?: No VTE patient discharged on overlapping Therapy?: Yes Plan Time Spent: Greater than 30 Minutes
--- NOTE | 2017-08-25 15:56 | Death Summary ---
Summary Date : 08/23/17 Time of :: 13:47 Autopsy: No Resuscitation Status: Full Code Primary Care Provider: Dr. Hilliard - Final Diagnosis (1) Aspiration into airway Is this a current diagnosis for this admission?: Yes (2) Acute respiratory failure Is this a current diagnosis for this admission?: Yes (3) Acute renal failure Is this a current diagnosis for this admission?: Yes (4) Dehydration Is this a current diagnosis for this admission?: Yes (5) Acute hypoxemic respiratory failure Is this a current diagnosis for this admission?: Yes (6) Acute congestive heart failure Is this a current diagnosis for this admission?: Yes (7) Atrial fibrillation with rapid ventricular response Is this a current diagnosis for this admission?: Yes (8) Hypotension Is this a current diagnosis for this admission?: Yes (9) Pneumonia Is this a current diagnosis for this admission?: Yes (10) Diabetes Is this a current diagnosis for this admission?: Yes (11) Hypertension Is this a current diagnosis for this admission?: Yes (12) Obesity Is this a current diagnosis for this admission?: Yes (13) Volume depletion Is this a current diagnosis for this admission?: Yes (14) Anemia Is this a current diagnosis for this admission?: Yes Hospital Course:: JOSH WALKER is a 66 year old female presented to the hospital with complaint of shortness of breath and found to be in A. fib with RVR. On diltiazem and heart rate appeared to have improved. Patient was seen by cardiology who made adjustments to patient's medications due to heart rate worsening. Patient in the meantime had been placed on Lasix to help with congestive heart failure. Patient was placed on Coumadin due to patient having A. fib. Due to patient needing DVT prophylaxis patient has also been written for heparin injections. Patient's heparin injections were discontinued once patient's INR was therapeutic however patient had complained of abdominal pain and CT demonstrated that patient had a large abdominal hematoma. Patient's hemoglobin has also trended down as well. Surgery consult was placed for internal line and to follow patient due to large hematoma. Patient had also been ordered for 2 units of FFP as well as 2 units of packed RBCs. Patient was also ordered for IVF bolus and maintenance fluids. Patient also was found to have acute renal injury with creatinine of 3.44 and therefore renal had been consulted. Patient also been ordered for a renal ultrasound as well. Rapid response was called due to patient having difficulty breathing. Patient was found vomiting food debris from mouth and nose. Patient was suctioned aggressively and patient continued to vomit profusely. Chest compressions were initiated once patient was found to not have pulse. Pulse was obtained with medication and CPR and therefore patient was intubated. Patient was successfully intubated on third attempt. Pulse was lost again and after coding patient for 30 minutes code was discontinued. During this time I spoke with patient's family twice to keep them informed of what was happening with their loved one. Patient was pronounced at 1347 on 08/23/2017.
== END 2017-08-23 16:36 | DRG 308 ==
LOC: ER 09:13 → EH 14:54 → 3W 08-16 12:10
PROVIDERS: ADMIT Emergency Medicine; ATTEND Emergency Medicine
PROC: 3E0F73Z Introduction of Anti-inflammatory into Respiratory Tract, Via Natural or Artificial Opening (ICD-10-PCS; principal; 2017-08-16)
DX: I48.91 Unspecified atrial fibrillation (principal); J69.0 Pneumonitis due to inhalation of food and vomit; J96.01 Acute respiratory failure with hypoxia; I50.33 Acute on chronic diastolic (congestive) heart failure; J18.1 Lobar pneumonia, unspecified organism; N17.9 Acute kidney failure, unspecified; S36.62XA Contusion of rectum, initial encounter; J45.41 Moderate persistent asthma with (acute) exacerbation; E86.0 Dehydration; S30.1XXA Contusion of abdominal wall, initial encounter; X58.XXXA Exposure to other specified factors, initial encounter; I11.0 Hypertensive heart disease with heart failure; K80.80 Other cholelithiasis without obstruction; N26.1 Atrophy of kidney (terminal); G43.909 Migraine, unspecified, not intractable, without status migrainosus; M19.90 Unspecified osteoarthritis, unspecified site; L40.9 Psoriasis, unspecified; I16.0 Hypertensive urgency; E66.09 Other obesity due to excess calories; Z68.39 Body mass index [BMI] 39.0-39.9, adult; I95.9 Hypotension, unspecified; E78.00 Pure hypercholesterolemia, unspecified; E11.8 Type 2 diabetes mellitus with unspecified complications; L30.4 Erythema intertrigo; Z79.01 Long term (current) use of anticoagulants; Z79.82 Long term (current) use of aspirin; Z79.4 Long term (current) use of insulin; Z79.899 Other long term (current) drug therapy; Z88.1 Allergy status to other antibiotic agents; Z88.3 Allergy status to other anti-infective agents
CPT/HCPCS: 36415; 71045; 71046; 71275; 74018; 74176; 76770; 80048; 80053; 80076; 81001; 82553; 82962; 83690; 83735; 83880; 84443; 84484; 85025; 85027; 85610; 87804; 93005; 93010; 93306; 94640; 94799; 96361; 96374; 96375; 99291; J0171; J1160; J1335; J1650; J1815; J1940; J2405; J3480; J3490; J7030; J7040; J7512; J7620